=== PATIENT | female | born 1950 | race Hispanic/Latino ===

== ENCOUNTER → 2023-05-12 | Emergency (ER) | payer OTHER ==
[~2023-05-12] MED LIST: ACETAMINOPHEN 500 MG TAB ONE
--- NOTE | 2023-05-12 19:59 | RAD REPORT ---
EXAM DESCRIPTION: CT - [id number] - 05/12/2023 7:43 pm CLINICAL HISTORY: Trauma, head and neck injury. head injury COMPARISON: No comparisons TECHNIQUE: Axial 5 mm thick images of the head were obtained. Axial 2 mm thick images of the cervical spine were obtained with sagittal and coronal reconstruction images generated and reviewed. All CT scans are performed using dose optimization technique as appropriate and may include automated exposure control or mA/KV adjustment according to patient size. FINDINGS: CT HEAD WITHOUT CONTRAST: No acute hemorrhage, hydrocephalus or extra-axial collection is identified.2.5 cm area of gliosis lef t cerebellum likely related to prior infarct or trauma. Moderate generalized brain atrophy.No areas o f brain edema or midline shift. The paranasal sinuses and mastoids are clear.The calvarium is intact. CT CERVICAL SPINE WITHOUT CONTRAST: No fracture or subluxation.No prevertebral soft tissues swelling is identified. Bilateral carotid ath erosclerosis. IMPRESSION: No acute intracranial or cervical spine findings.
--- NOTE | 2023-05-12 20:39 | ER ---
Nurse's Notes [facility] Name: Genesis Busch Age: 73 yrs Sex: Female : 1950 Arrival Date: 05/12/2023 Time: 18:55 Bed 15 Private MD: Diagnosis: Unspecified injury of head, initial encounter;Laceration without foreign body of unspecified part of head Presentation: 05/12 19:12 Chief complaint: Patient states: walking to kitchen from restroom took get her glucose cm10 pills due to blood sugar being low and patient passed out. pt states that she fell straight back and hit her head on cabinet. Minimal bleeding noted. Pt A\T\Ox4, during triage. Pt complaining of pain to head. Coronavirus screen: Vaccine status: Patient reports receiving the 2nd dose of the covid vaccine. Client denies travel out of the [place] in the last 14 days. Ebola Screen: Patient denies travel to an Ebola-affected area in the 21 days before illness onset. No symptoms or risks identified at this time. Initial Sepsis Screen: Does the patient meet any 2 criteria? No. Patient's initial sepsis screen is negative. Does the patient have a suspected source of infection? No. Patient's initial sepsis screen is negative. Risk Assessment: Do you want to hurt yourself or someone else? Patient reports no desire to harm self or others. Onset of symptoms was May 12, 2023. 19:12 Method Of Arrival: Wheelchair cm10 19:12 Acuity: SUMAYA 3 cm10 Historical: - Allergies: 19:14 No Known Allergies; cm10 - PMHx: 19:14 Diabetes mellitus; cm10 - Immunization history:: Adult Immunizations up to date. - Social history:: Smoking status: Patient denies any tobacco usage or history of. - Family history:: not pertinent. - Hospitalizations: : No recent hospitalization is reported. Screenin:15 [facility] ED Fall Risk Assessment (Adult) History of falling in the last 3 months, rv including since admission Yes- physiologic fall (2 pts) Score/Fall Risk Level 3 or more points = High Risk Oriented to surroundings, Maintained a safe environment, Educated pt \T\ family on fall prevention, incl call for assistance when getting out of bed, Assessed \T\ reinforced patient's understanding of fall precautions. Abuse screen: Denies threats or abuse. Denies injuries from another. Nutritional screening: No deficits noted. Tuberculosis screening: No symptoms or risk factors identified. Assessment: 20:15 General: Appears comfortable, Behavior is calm, cooperative. rv 20:15 Pain: Complains of pain in back of the head. Neuro: Level of Consciousness is awake, rv alert, obeys commands, Oriented to person, place, time, situation, Reports a syncopal episode. Cardiovascular: Capillary refill < 3 seconds Patient's skin is warm and dry. Respiratory: Airway is patent Respiratory effort is even, unlabored. GI: No signs and/or symptoms were reported involving the gastrointestinal system. : No signs and/or symptoms were reported regarding the genitourinary system. Derm: Skin is intact. Injury Description: Laceration sustained to scalp, back of the head is 0.5 to 2.5 cm long, not bleeding. Vital Signs: 19:12 BP 137 / 63; Pulse 75; Resp 16; Temp 97.7(O); Pulse Ox 98% on R/A; Weight 74.84 kg; cm10 Height 5 ft. 1 in. ; Pain 10/10; 20:52 BP 131 / 66; Pulse 71; Resp 16; Temp 98; Pulse Ox 99% ; rv 19:12 Body Mass Index 31.18 (74.84 kg, 154.94 cm) cm10 19:12 Pain Scale: Adult cm10 Shante Coma Score: 19:40 Eye Response: spontaneous(4). Motor Response: obeys commands(6). Verbal Response: rn oriented(5). Total: 15. 20:22 Eye Response: spontaneous(4). Motor Response: obeys commands(6). Verbal Response: rn oriented(5). Total: 15. 20:52 Eye Response: spontaneous(4). Motor Response: obeys commands(6). Verbal Response: rv oriented(5). Total: 15. ED Course: 18:56 Patient arrived in ED. im 19:03 Star Verduzco MD is Attending Physician. rn 19:14 Triage completed. cm10 19:15 Arm band placed on Patient placed in an exam room, on a stretcher. cm10 19:20 Aftab Christianson RN is Primary Nurse. rv 19:45 CT Head C Spine In Process Unspecified. EDMS 20:15 Patient has correct armband on for positive identification. Client placed on continuous rv cardiac and pulse oximetry monitoring. NIBP monitoring applied. credit risk associate on. 20:15 Assist provider with laceration repair on scalp, back of the head that was 2.5 cm. or rv less using sandy. Set up tray. Performed by Star Verduzco MD Patient tolerated well. Patient did not have IV access during this emergency room visit. Administered Medications: 20:19 Drug: Acetaminophen PO 1000 mg PO once Route: PO; rv 20:50 Follow up: Response: No adverse reaction rv Medication: 20:52 VIS not applicable for this client. rv Outcome: 20:15 Discharged to home ambulatory, with friend, rv 20:15 Condition: good 20:15 Discharge instructions given to patient, Instructed on discharge instructions, follow up and referral plans. wound care, Demonstrated understanding of instructions, follow-up care, wound care, staple removal 20:38 Discharge ordered by . rn 20:53 Patient left the ED. rv Signatures: Dispatcher [employer] EDDC Star Verduzco MD MD rn Vicente, Ronaldo RN RN Cindi Cruz Clarissa RN RN cm10 Corrections: (The following items were deleted from the chart) 20:53 20:15 No provider procedures requiring assistance completed. rv rv
--- NOTE | 2023-05-12 20:39 | EDPHYS ---
Physician Documentation [facility] Name: Genesis Busch Age: 73 yrs Sex: Female : 1950 Arrival Date: 05/12/2023 Time: 18:55 Bed 15 Private MD: ED Physician Star Verduzco HPI: 05/12 19:40 This 73 yrs old Female presents to ER via Wheelchair with complaints of Head Injury rn With LOC-Adult. 19:40 The patient or guardian reports injury, a laceration. The complaints affect the right rn occipital area. Onset: The symptoms/episode began/occurred just prior to arrival. Associated signs and symptoms: Loss of consciousness: This patient experience a loss of consciousness, Pertinent negatives: patient denies any alcohol consumption, double vision, incontinence, seizure, shortness of breath, vomiting, weakness in extremities, generalized weakness. Severity of symptoms: At their worst the symptoms were moderate, in the emergency department the symptoms have improved. The patient has not experienced similar symptoms in the past. Patient reports that her blood sugar dropped, felt lightheaded and dizzy, passed out in the bathroom and struck back of head on cabinet. When she woke up she took glucose tablets and some food with improvement in glucose. Patient states this feels identical to other episodes when her blood sugar dropped low. No fever. Reports headache and mild neck pain but no pain elsewhere. Remembers all events otherwise. Denies any chest pain or palpitations. No shortness of breath. No abdominal pain. No extremity injuries.. Historical: - Allergies: 19:14 No Known Allergies; cm10 - PMHx: 19:14 Diabetes mellitus; cm10 - Immunization history:: Adult Immunizations up to date. - Social history:: Smoking status: Patient denies any tobacco usage or history of. - Family history:: not pertinent. - Hospitalizations: : No recent hospitalization is reported. ROS: 19:42 Constitutional: Negative for fever, chills, and weight loss, Eyes: Negative for injury, rn pain, redness, and discharge, Neck: Mild neck pain Cardiovascular: Negative for chest pain, palpitations, and edema, Respiratory: Negative for shortness of breath, cough, wheezing, and pleuritic chest pain, Abdomen/GI: Negative for abdominal pain, nausea, vomiting, diarrhea, and constipation, MS/Extremity: Negative for injury and deformity, Skin: Positive for laceration to scalp Neuro: Positive for headache Exam: 19:42 Constitutional: This is a well developed, well nourished patient who is awake, alert, rn and in no acute distress. Head/Face: Normocephalic, 2.5 cm superficial laceration to right posterior scalp. No active bleeding. No foreign body. Eyes: Pupils equal round and reactive to light, extra-ocular motions intact. Lids and lashes normal. Conjunctiva and sclera are non-icteric and not injected. Cornea within normal limits. Periorbital areas with no swelling, redness, or edema. Neck: No cervical point tenderness Cardiovascular: Regular rate and rhythm. No pulse deficits. Respiratory: No increased work of breathing, no retractions or nasal flaring. Abdomen/GI: Soft, non-tender Back: No spinal tenderness. No costovertebral tenderness. Full range of motion. MS/ Extremity: Pulses equal, no cyanosis. Neurovascular intact. Full, normal range of motion. Equal circumference. Neuro: Awake and alert, GCS 15, oriented to person, place, time, and situation. Cranial nerves II-XII grossly intact. Motor strength 5/5 in all extremities. Sensory grossly intact. Cerebellar exam normal. 20:35 ECG was reviewed by the Attending Physician. rn Vital Signs: 19:12 BP 137 / 63; Pulse 75; Resp 16; Temp 97.7(O); Pulse Ox 98% on R/A; Weight 74.84 kg; cm10 Height 5 ft. 1 in. ; Pain 10/10; 20:52 BP 131 / 66; Pulse 71; Resp 16; Temp 98; Pulse Ox 99% ; rv 19:12 Body Mass Index 31.18 (74.84 kg, 154.94 cm) cm10 19:12 Pain Scale: Adult cm10 Shante Coma Score: 19:40 Eye Response: spontaneous(4). Motor Response: obeys commands(6). Verbal Response: rn oriented(5). Total: 15. 20:22 Eye Response: spontaneous(4). Motor Response: obeys commands(6). Verbal Response: rn oriented(5). Total: 15. 20:52 Eye Response: spontaneous(4). Motor Response: obeys commands(6). Verbal Response: rv oriented(5). Total: 15. Laceration: 20:22 Wound Repair of 2.5cm ( 1.0in ) subcutaneous laceration to right occipital area. Distal rn neuro/vascular/tendon intact. Wound prep: Extensive cleansing by nurse, Wound explored. Skin closed with 2 35W [place] using staple gun. Dressed with Kerlix. Patient tolerated well. MDM: 19:03 Patient medically screened. rn 20:22 Differential diagnosis: Contusion of Hematoma on Intracranial bleed- Concussion rn cerebral contusion. Data reviewed: vital signs, nurses notes, radiologic studies, CT scan, and as a result, I will discharge patient. Counseling: I had a detailed discussion with the patient and/or guardian regarding the historical points, exam findings, and any diagnostic results supporting the discharge/admit diagnosis, radiology results, the need for outpatient follow up, to return to the emergency department if symptoms worsen or persist or if there are any questions or concerns that arise at home. Special discussion: Based on the patient's history, exam and DX evaluation, there is no indication for emergent intervention or inpatient [place]. It is understood by the patient/guardian that if the SXs persist or worsen they need to return immediately for re-evaluation. I discussed with the patient/guardian in detail that at this point there is no indication for admission to the hospital. It is understood, however, that if the symptoms persist or worsen the patient needs to return immediately for re-evaluation. 20:39 ED course: Advised patient to also eat snack prior to bed tonight to support her rn glucose. . 05/12 19:25 Order name: Glucose, Ancillary Testing; Complete Time: 19:26 EDDC 05/12 20:53 Order name: Glucose, Ancillary Testing EDDC 05/12 19:19 Order name: CT Head C Spine; Complete Time: 20:03 rn 05/12 19:42 Order name: EKG; Complete Time: 19:42 rn 05/12 19:19 Order name: Wound Care; Complete Time: 19:20 rn 05/12 19:42 Order name: EKG - Nurse/Tech; Complete Time: 19:49 rn 05/12 20:15 Order name: PO challenge; Complete Time: 20:19 rn EC:35 Rate is 73 beats/min. Rhythm is regular. QRS [place] is Normal. [place] interval is normal. QRS rn interval is normal. QT interval is normal. No Q waves. T waves are Normal. No ST changes noted. Clinical impression: Normal ECG. Interpreted by me. Administered Medications: 20:19 Drug: Acetaminophen PO 1000 mg PO once Route: PO; rv 20:50 Follow up: Response: No adverse reaction rv Disposition Summary: 05/12/23 20:38 Discharge Ordered Notes: Location: Home rn Problem: new rn Symptoms: have improved rn Condition: Stable rn Diagnosis - Unspecified injury of head, initial encounter rn - Laceration without foreign body of unspecified part of head rn Followup: rn - With: Private Physician - When: As needed - Reason: Recheck today's complaints, Re-evaluation by your physician Followup: rn - With: Emergency Department - When: 10 - 14 days - Reason: Staple/Suture removal Discharge Instructions: - Discharge Summary Sheet rn - Head Injury, Adult rn - Sutures, [place], or Adhesive Wound Closure rn Forms: - Medication Reconciliation Form rn - Thank You Letter rn - Antibiotic morning babysitter - Prescription Opioid Use rn - Patient Portal Instructions rn - Leadership Thank You Letter rn Signatures: Dispatcher [employer] Star Fatima MD MD rn Vicente, Ronaldo RN RN Monica Manuel RN RN cm10
[2023-05-12 23:06] VITALS: BP 131/66; TEMP 98; O2SAT 99
--- NOTE | 2023-05-14 15:02 | EKG ---
Test Date: 2023-05-12 Test Time: 19:20:44 Environmental Test Technician: SUSANNE MEASUREMENT RESULTS: Intervals: Rate: 73 RI: 174 QRSD: 80 QT: 406 QTc: 447 [place]: P: 81 RI: 174 QRS: 4 T: 64 INTERPRETIVE STATEMENTS: Normal sinus rhythm Normal ECG No previous ECG available for comparison Electronically Signed On 05-14-23 14:58:56 EMOTIONAL SUPPORT TEACHER by Rohan Salazar
== END ==
LOC: ER 18:55
PROC: 0HQ0XZZ Repair Scalp Skin, External Approach (ICD-10-PCS; principal; 2023-05-12)
DX: S01.01XA Laceration without foreign body of scalp, initial encounter (principal); E11.9 Type 2 diabetes mellitus without complications
CPT/HCPCS: 70450; 72125; 82947; 93005

== ENCOUNTER → 2023-05-24 | Emergency (ER) | payer OTHER ==
--- OUTSIDE RECORDS SUMMARY | 2023-05-24 11:07 | XMS REPORT | Continuity of Care Document ---
Author Name Unknown Address [address] [facility] [place] [address] [facility] Address [address] [facility] [address] [place] [address] Care Team Providers Care Clerical Methods Analyst Name Role Phone Master Rice MD Primary Care Physician ADELA GOLDEN Attending Clinician Unavail able MASTER RICE Attending Clinician Unavailable JUSTEN CELESTE Attending Clinician Unavailable MELISSA ADAMS Attending Clinician Unavailab WANDER Gamez Attending Clinician Sarah ALIYAH Katz Attending Clinician Unavailable 1, [facility] TOMOGRAP[facility] Attending Clinic cosme Unavailable MD JOHANNY Attending Clinician Unavailab le LAB39 Attending Clinician Unavailable PINA GONZALES Attending Clinician Unavailable VIKTOR OROZCO Attending Clinician Unavailable WINSOME GARCIA Attending Clinician Unavaila ble LAB47 Attending Clinician Unavailable LAB90 Attending Clinician Unavailable TY GUERRERO Attending Clinician Unavailable [facility] Attending Clinici an Unavailable Adela Golden MD Attending Clinician Master Rice MD Attending Clinician [phone] JAZMYN GARCIA Attending Clinician Unavailable AUGUSTINE SANTAMARIA Attending Clinician Unavailable TRISTEN STOVALL Attending Clinician Unavailable Augustine Jacob Attending Clinician [phone] SANTY JEAN Attending Clinician Unavailable Santy Jean PA-C Attending Clinician [phone] Jazmyn Garcia MD Attending Clinician [phone] FL1, [id number] Attending Clinician Unavailable SWAB, MC COVID SELF Attending Clinician Unavaila ble TOMOGRAPHY, TA [facility] Attending Jose Alfredo weller Unavailable MAC, EKG- Attending Clinician Unavailable JORDAN BOYLE Attending Clinician Unavailabl e COVID-PFIZER BOOSTER, [facility] Attending Clin ician Unavailable COVID-PFIZER BOOSTER, MILLY Attending Clinician Unavailable Payers Payer Name Policy Type Policy Number Effective Date Expirati on Date Source [facility] 2019 [id number] 2017 00:00:00 Problems Condition Name Condition Details Condition Category Status Onset Date Resolution Date Last Treatment Date Treating Clinician Comments Source 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 On statin and BBLast Assessmen t & Plan: Formattin g of this note might be different from the original. 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 Sees opthamolo gyLast Assessmen t & Plan: Formattin g of this note might be different from the original. Unchanged Radha Seybold - Externa l Type 2 diabetes mellitus with peripheral neuropathy (multi HCC) Type 2 diabetes mellitus with peripheral neuropathy (multi HCC) Disease Active 8-26 00:00: 00 Overview: Formattin g of this note might be different from the original. Fall preventio n and control sugarLast Assessmen t & Plan: Formattin g of this note might be different from the original. Unchanged Radha Sepremold - Externa l Major depressive disorder, single episode, moderate Major depressive disorder, single episode, moderate Disease Active 12-02 00:00: 00 Overview: Formattin g of this note might be different from the original. On ssriRecen t worsening with just dx with throat cancerHus band recently and crying spells regularly Last Assessmen t & Plan: Formattin g of this note might be different from the original. Not Controlle d Radha Sepremold - Externa l At risk for falls At risk for falls Disease Active 12-08 00:00: 00 Radha Beckold - Externa l Repeated falls Repeated falls Disease Active 12-08 00:00: 00 Radha Sepremold - Externa l DM type 2 with diabetic mixed hyperlipid emia (multi HCC) DM type 2 with diabetic mixed hyperlipid emia (multi HCC) Disease Active 08-18 00:00: 00 Overview: Formattin g of this note might be different from the original. Insulin, metformin , and statinLas t Assessmen t & Plan: Formattin g of this note might be different from the original. Unchanged Radha Seybold - Externa l Insulin long-term use (multi HCC) Insulin long-term use (multi HCC) Disease Active 08-18 00:00: 00 Overview: Formattin g of this note might be different from the original. controlle dLast Assessmen t & Plan: Formattin g of this note might be different from the original. Controlle d Radha Beckold - Externa l Hypertensi ve nephropath y Hypertensi ve nephropath y Disease Active 2018-04 0 00:00: 00 Overview: Formattin g of this note might be different from the original. On ARBLast Assessmen t & Plan: Formattin g of this note might be different from the original. 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, right eye Disease Active 18 00:00: 00 Radha Anpremold - Externa l Osteoarthr itis of right hip Osteoarthr itis of right hip Disease Active 2014-04 00:00: 00 Radha Anpremold - Externa l Dot and blot hemorrhage Dot and blot hemorrhage Disease Active 09-07 00:00: 00 Radha Anybold - Externa l Restrictiv e lung disease Restrictiv e lung disease Disease Active 2010-04 00:00: 00 Radha ybold - Externa l VENKATESH (obstructi ve sleep apnea) VENKATESH (obstructi ve sleep apnea) Disease Active 07-27 00:00: 00 Radha Beckold - Externa l Type II diabetes mellitus with nephropath y (multi HCC) Type II diabetes mellitus with nephropath y (multi HCC) Disease Active 2009-04 00:00: 00 Overview: Formattin g of this note might be different from the original. On ARBLast Assessmen t & Plan: Formattin g of this note might be different from the original. Controlle d Radha Simental - Externa l Essential hypertensi on, benign Essential hypertensi on, benign Disease Active Overview: Formattin g of this note might be different from the original. Low salt diet; on ARBUp todayLast Assessmen t & Plan: Formattin g of this note might be different from the original. Not controlle d; her BP has been dropping and causeing dizziness She held her BP med this am Radha Beckold - Externa l Mixed hyperlipid emia Mixed hyperlipid emia Disease Active Overview: Formattin g of this note might be different from the original. The 10-year ASCVD risk score (Raffi BROWER Jr., et al., 2013) is: 19% Values used to calculate the score: Age: 69 years Sex: Female Is Non-Hispa efrain : No Diabetic: Yes Tobacco smoker: No Systolic Blood Pressure: 130 mmHg Is BP treated: Yes HDL Cholester ol: 43 mg/dL Total Cholester ol: 202 mg/dLOn statinLas t Assessmen t & Plan: Formattin g of this note might be different from the original. Unchanged Radha Kamille Sandersona nancy Coronary atheroscle rosis due to lipid rich plaque Coronary atheroscle rosis due to lipid rich plaque Disease Active Overview: Formattin g of this note might be different from the original. On BB and plavixLas t Assessmen t & Plan: Formattin g of this note might be different from the original. Controlle d She has had one episode chest pain several months ago Radha Scruggs Externa l Myositis Myositis Disease Active Tc Scruggs Externa l Elevated CPK Elevated CPK Disease Active Radha Simental - Externa l Allergies, Adverse Reactions, Alerts Allergy Name Allergy Type Status Severity Reaction(s) Onset Date Inactive Date Treating Clinician Comments Source Prince Inhibito rs Drug Intolera nce Active Cough 04-19 00:00: 00 Radha Simental Prince Inhibito rs Drug Intolera nce Active Cough 04-19 00:00: 00 Radha Sandersona l Atorvast atin Propensi ty to adverse reaction s Active 2007-04 00:00: 00 Other reaction( s): Other Radha Kamille Sandersona l Fenofibr ate Propensi ty to adverse reaction s Active 2007-04 00:00: 00 Other reaction( s): Other Radha Kamille Sandersona nancy Pravasta tin Propensi ty to adverse reaction s Active 2007-04 00:00: 00 Other reaction( s): Other Radha Kamille - Externa l Atorvast atin Calcium Drug Allergy Active Myalgia 2007-04 00:00: 00 Radha Sandersona l Pravasta tin Sodium Propensi ty to adverse reaction s to drug Active Myalgia 2007-04 00:00: 00 Radha Sandersona nancy Fenofibr ate Drug Allergy Active Myalgia 2007-04 00:00: 00 Radha Simental Fenofibr ate Drug Allergy Active Myalgia 2007-04 00:00: 00 Radha Sandersonadam cruz Social History Social Habit Start Date Stop Date Quantity Comments Source Gender identity 2022-10-09 18:44:18 Identifies as female gender (finding) Radha Sepremantonina - External Sexual orientation 2022-10-09 18:44:18 Heterosexual (finding) Radhacait Simental - External Exposure to SARS-CoV-2 (event) Not sure Radha small History SDOH Alcohol Frequency Radha hanley - External History SDOH Alcohol Std Drinks Radha amaroold - External History SDOH Alcohol Binge Radha Segeovanny - External Alcohol intake 2023-03-13 00:00:00 2023-03-13 00:00:00 Current non-drinker of alcohol (finding) Radha Segeovanny - External History of Social function 2022-12-27 00:00:00 2022-12-27 00:00:00 Radha premantonina - External Alcohol Comment 2014-05-22 00:00:00 2014-05-22 00:00:00 not even 1 per week Radha Simental - External Tobacco use and exposure 2014-01-09 00:00:00 2014-01-09 00:00:00 Smokeless tobacco non-user Radha Segeovanny - External Sex Ass[birth year] At 1950 00:00:00 1950 00:[birth year] F Radha Anpremantonina - External Smoking Status Start Date Stop Date Source Never smoked tobacco Radha Anpremantonina - External Medications Ordered Medication Name Filled Medication Name Start Date Stop Date Current Medication? Ordering Clinician Indication Dosage Frequency Signature (SIG) Comments Components Source ASPIR-81 81 MG OR TBEC 2022-04 09:50: 30 Yes 1 TABLET DAILY Radha cruz Coenzyme Q10 (CO Q 10 OR) 2022-04 09:50: 30 Yes Take by mouth 300 mg daily Radha cruz Alpha-Lipoi c Acid 600 MG oral Cap 2022-04 09:50: 30 Yes 600{cap praneeth} Take 600 capsules by mouth daily Radha cruz Cholecalcif abel (Vitamin D3) 50 MCG (2000 UT) oral Tab 2022-04 09:50: 30 Yes Take by mouth Radha cruz Ascorbic Acid (Vitamin C) 1000 MG oral Tablet 2022-04 09:50: 30 Yes 1000mg Take 1 tablet (1,000 mg total) by mouth daily With reina hip. Radha cruz Multiple Vitamins-Mi nerals (MULTIVITAM IN ADULTS 50+ OR) 2022-04 09:50: 30 Yes Take by mouth Radha cruz ASPIR-81 81 MG OR TBEC 2022-04 09:50: 30 Yes 1 TABLET DAILY Radha cruz Coenzyme Q10 (CO Q 10 OR) 2022-04 09:50: 30 Yes Take by mouth 300 mg daily Radha cruz Alpha-Lipoi c Acid 600 MG oral Cap 2022-04 09:50: 30 Yes 600{cap praneeth} Take 600 capsules by mouth daily Radha cruz Cholecalcif abel (Vitamin D3) 50 MCG (2000 UT) oral Tab 2022-04 09:50: 30 Yes Take by mouth Radha cruz Ascorbic Acid (Vitamin C) 1000 MG oral Tablet 2022-04 09:50: 30 Yes 1000mg Take 1 tablet (1,000 mg total) by mouth daily With reina hip. Radha cruz Multiple Vitamins-Mi nerals (MULTIVITAM IN ADULTS 50+ OR) 2022-04 09:50: 30 Yes Take by mouth Radha cruz Betamethaso ne Dipropionat e 0.05 % apply externally Ointment 2022-04 00:00: 00 Yes [id number] APPLY TWICE DAILY SPARINGLY TO ITCHY SPOTS OF BODY MON-FRI NEEDED . NOT FOR USE ON FACE, ARMPITS, GROIN OR AREAS UNDER FOLDS.. Radha cruz Tacrolimus (Protopic) 0.1 % apply externally Ointment 2022-04 00:00: 00 Yes [id number] Apply sparingly BID to rash face, armpits, groin/fold s prn. Radha cruz Betamethaso ne Dipropionat e 0.05 % apply externally Ointment 2022-04 00:00: 00 Yes [id number] APPLY TWICE DAILY SPARINGLY TO ITCHY SPOTS OF BODY MON-FRI NEEDED . NOT FOR USE ON FACE, ARMPITS, GROIN OR AREAS UNDER FOLDS.. Radha cruz Tacrolimus (Protopic) 0.1 % apply externally Ointment 2022-04 00:00: 00 Yes [id number] Apply sparingly BID to rash face, armpits, groin/fold s prn. Radha cruz ASPIR-81 81 MG OR TBEC 2022-04 09:36: 14 Yes 1 TABLET DAILY Radha Sandersona l Coenzyme Q10 (CO Q 10 OR) 2022-04 09:36: 14 Yes Take by mouth 300 mg daily Radha Sandersona nancy Cholecalcif abel (Vitamin D3) 50 MCG (2000 UT) oral Tab 2022-04 09:36: 14 Yes Take by mouth Radha Sandersona nancy Ascorbic Acid (Vitamin C) 1000 MG oral Tablet 2022-04 09:36: 14 Yes 1000mg Take 1 tablet (1,000 mg total) by mouth daily With reina hip. Radha Sandersona nancy Multiple Vitamins-Mi nerals (MULTIVITAM IN ADULTS 50+ OR) 2022-04 09:36: 14 Yes Take by mouth Radha Sandersona nancy ASPIR-81 81 MG OR TBEC 2022-04 09:36: 14 Yes 1 TABLET DAILY Radha Sandersona l Coenzyme Q10 (CO Q 10 OR) 2022-04 09:36: 14 Yes Take by mouth 300 mg daily Radha Sandersona nancy Cholecalcif abel (Vitamin D3) 50 MCG (2000 UT) oral Tab 2022-04 09:36: 14 Yes Take by mouth Radha Simental - Externa l Ascorbic Acid (Vitamin C) 1000 MG oral Tablet 2022-04 09:36: 14 Yes 1000mg Take 1 tablet (1,000 mg total) by mouth daily With reina hip. Radha Scruggs Externa nancy Multiple Vitamins-Mi nerals (MULTIVITAM IN ADULTS 50+ OR) 2022-04 09:36: 14 Yes Take by mouth Radha cruz Alpha-Lipoi c Acid 600 MG oral Cap 2022-04 09:36: 13 Yes 600{cap praneeth} Take 600 capsules by mouth daily Radha cruz Alpha-Lipoi c Acid 600 MG oral Cap 2022-04 09:36: 13 Yes 600{cap praneeth} Take 600 capsules by mouth daily Radha cruz ASPIR-81 81 MG OR TBEC 2022-04 09:31: 06 Yes 1 TABLET DAILY Radha cruz Coenzyme Q10 (CO Q 10 OR) 2022-04 09:31: 06 Yes Take by mouth 300 mg daily Radha cruz Alpha-Lipoi c Acid 600 MG oral Cap 2022-04 09:31: 06 Yes 600{cap praneeth} Take 600 capsules by mouth daily Radah cruz Cholecalcif abel (Vitamin D3) 50 MCG (2000 UT) oral Tab 2022-04 09:31: 06 Yes Take by mouth Radha cruz Ascorbic Acid (Vitamin C) 1000 MG oral Tablet 2022-04 09:31: 06 Yes 1000mg Take 1 tablet (1,000 mg total) by mouth daily With reina hip. Radha cruz Multiple Vitamins-Mi nerals (MULTIVITAM IN ADULTS 50+ OR) 2022-04 09:31: 06 Yes Take by mouth Radha cruz Citalopram Hydrobromid e 40 MG oral Tablet 2022-04 00:00: 00 Yes [id number] 40mg Take 1 tablet (40 mg total) by mouth daily. Radha cruz Metformin HCl 1000 MG oral Tablet 2022-04 00:00: 00 Yes [id number] 1000mg Take 1 tablet (1,000 mg total) by mouth in the morning and 1 tablet (1,000 mg total) in the evening. Take with meals. Radha cruz Citalopram Hydrobromid e 40 MG oral Tablet 2022-04 00:00: 00 Yes [id number] 40mg Take 1 tablet (40 mg total) by mouth daily. Radha cruz Metformin HCl 1000 MG oral Tablet 2022-04 0-16 00:00: 00 Yes [id number] 1000mg Take 1 tablet (1,000 mg total) by mouth in the morning and 1 tablet (1,000 mg total) in the evening. Take with meals. Radha cruz Citalopram Hydrobromid e 40 MG oral Tablet 2022-04 016 00:00: 00 Yes [id number] 40mg Take 1 tablet (40 mg total) by mouth daily. aRdha Anpremantonina cruz Metformin HCl 1000 MG oral Tablet 2022-04 0-16 00:00: 00 Yes [id number] 1000mg Take 1 tablet (1,000 mg total) by mouth in the morning and 1 tablet (1,000 mg total) in the evening. Take with meals. Radha cruz Citalopram Hydrobromid e 40 MG oral Tablet 2022-04 0 00:00: 00 Yes [id number] 40mg Take 1 tablet (40 mg total) by mouth daily. Radha cruz Metformin HCl 1000 MG oral Tablet 2022-04 016 00:00: 00 Yes [id number] 1000mg Take 1 tablet (1,000 mg total) by mouth in the morning and 1 tablet (1,000 mg total) in the evening. Take with meals. Radha cruz Citalopram Hydrobromid e 40 MG oral Tablet 2022-04 016 00:00: 00 Yes [id number] 40mg Take 1 tablet (40 mg total) by mouth daily. Radha Anpremantonina King nancy Metformin HCl 1000 MG oral Tablet 2022-04 016 00:00: 00 Yes [id number] 1000mg Take 1 tablet (1,000 mg total) by mouth in the morning and 1 tablet (1,000 mg total) in the evening. Take with meals. Radha cruz Insulin Pen Needle (Unifine Pentips) 29G X 12MM does not apply Misc 2022-04 0-05 00:00: 00 Yes As directed. Radha Sandersona nancy Insulin Pen Needle (Unifine Pentips) 29G X 12MM does not apply Misc 2022- 0-05 00:00: 00 Yes As directed. Radha cruz Insulin Pen Needle (Unifine Pentips) 29G X 12MM does not apply Misc 2022-04 0-05 00:00: 00 Yes As directed. Radha Sandersona nancy Insulin Pen Needle (Unifine Pentips) 29G X 12MM does not apply Misc 2022- 0-05 00:00: 00 Yes As directed. Radha Kamille Sandersona l Insulin Pen Needle (Unifine Pentips) 29G X 12MM does not apply Misc 2022-04 0-05 00:00: 00 Yes As directed. Radha cruz ASPIR-81 81 MG OR TBEC 12-27 10:09: 43 Yes 1 TABLET DAILY Radha cruz Coenzyme Q10 (CO Q 10 OR) 12-27 10:09: 43 Yes Take by mouth 300 mg daily Radha cruz Alpha-Lipoi c Acid 600 MG oral Cap 12-27 10:09: 43 Yes 600{cap praneeth} Take 600 capsules by mouth daily Radha cruz Cholecalcif abel (Vitamin D3) 50 MCG (2000 UT) oral Tab 12-27 10:09: 43 Yes Take by mouth Radha cruz Ascorbic Acid (Vitamin C) 1000 MG oral Tablet 12-27 10:09: 43 Yes 1000mg Take 1 tablet (1,000 mg total) by mouth daily With reina hip. Radha cruz Multiple Vitamins-Mi nerals (MULTIVITAM IN ADULTS 50+ OR) 12-27 10:09: 43 Yes Take by mouth Radha cruz ASPIR-81 81 MG OR TBEC 12-27 10:09: 43 Yes 1 TABLET DAILY Radha cruz Coenzyme Q10 (CO Q 10 OR) 12-27 10:09: 43 Yes Take by mouth 300 mg daily Radha cruz Alpha-Lipoi c Acid 600 MG oral Cap 12-27 10:09: 43 Yes 600{cap praneeth} Take 600 capsules by mouth daily Radha cruz Cholecalcif abel (Vitamin D3) 50 MCG (2000 UT) oral Tab 12-27 10:09: 43 Yes Take by mouth Radha cruz Ascorbic Acid (Vitamin C) 1000 MG oral Tablet 12-27 10:09: 43 Yes 1000mg Take 1 tablet (1,000 mg total) by mouth daily With reina hip. Radha cruz Multiple Vitamins-Mi nerals (MULTIVITAM IN ADULTS 50+ OR) 12-27 10:09: 43 Yes Take by mouth Radha cruz Valsartan 160 MG oral Tablet 12-27 00:00: 00 Yes [id number] Take 1 daily. Radha cruz Valsartan 160 MG oral Tablet 12-27 00:00: 00 Yes [id number] Take 1 daily. Radha cruz Valsartan 160 MG oral Tablet 12-27 00:00: 00 Yes [id number] Take 1 daily. Radha cruz Valsartan 160 MG oral Tablet 12-27 00:00: 00 Yes [id number] Take 1 daily. Radha cruz Valsartan 160 MG oral Tablet 12-27 00:00: 00 Yes [id number] Take 1 daily. Radha cruz Valsartan 160 MG oral Tablet 12-27 00:00: 00 Yes [id number] Take 1 daily. Radha cruz Valsartan 160 MG oral Tablet 12-27 00:00: 00 Yes [id number] Take 1 daily. Radha cruz ASPIR-81 81 MG OR TBEC 11-09 15:04: 28 Yes 1 TABLET DAILY Radha cruz Coenzyme Q10 (CO Q 10 OR) 11-09 15:04: 28 Yes Take by mouth 300 mg daily Radha cruz Alpha-Lipoi c Acid 600 MG oral Cap 11-09 15:04: 28 Yes 600{cap praneeth} Take 600 capsules by mouth daily Radha cruz Cholecalcif abel (Vitamin D3) 50 MCG (1999) oral Tab 11-09 15:04: 28 Yes Take by mouth Radha cruz Ascorbic Acid (Vitamin C) 1000 MG oral Tablet 11-09 15:04: 28 Yes 1000mg Take 1 tablet (1,000 mg total) by mouth daily With reina hip Radha curz Multiple Vitamins-Mi nerals (MULTIVITAM IN ADULTS 50+ OR) 11-09 15:04: 28 Yes Take by mouth Radha cruz ASPIR-81 81 MG OR TBEC 10-26 14:19: 38 Yes 1 TABLET DAILY Radha cruz Coenzyme Q10 (CO Q 10 OR) 10-26 14:19: 38 Yes Take by mouth 300 mg daily Radha cruz Alpha-Lipoi c Acid 600 MG oral Cap 10-26 14:19: 38 Yes 600{cap praneeth} Take 600 capsules by mouth daily Radha cruz Cholecalcif abel (Vitamin D3) 50 MCG (1999) oral Tab 10-26 14:19: 38 Yes Take by mouth Radha cruz Ascorbic Acid (Vitamin C) 1000 MG oral Tablet 10-26 14:19: 38 Yes 1000mg Take 1 tablet (1,000 mg total) by mouth daily With reina hip Radha cruz Multiple Vitamins-Mi nerals (MULTIVITAM IN ADULTS 50+ OR) 10-26 14:19: 38 Yes Take by mouth Radha cruz Glucose Blood in vitro Strip 10-11 00:00: 00 Yes Test 3 times daily as directed Radha cruz Glucose Blood in vitro Strip 10-11 00:00: 00 Yes Test 3 times daily as directed Radha cruz Glucose Blood in vitro Strip 10-11 00:00: 00 Yes Test 3 times daily as directed Radha Seybold - Externa l Glucose Blood in vitro Strip 3-0 - 00:00: 00 Yes Test 3 times daily as directed Radha Seybold - Externa l Glucose Blood in vitro Strip 2022-0 - 00:00: 00 Yes Test 3 times daily as directed Radha Seybold - Externa l Glucose Blood in vitro Strip 2022-0 - 00:00: 00 Yes Test 3 times daily as directed Radha Seybold - Externa l Glucose Blood in vitro Strip 2022-0 -05 00:00: 00 Yes Test 3 times daily as directed Radha Seybold - Externa l Glucose Blood in vitro Strip 2022-0 10-11 00:00: 00 Yes Test 3 times daily as directed Radha Seybold - Externa l Glucose Blood in vitro Strip 2022-0 10-11 00:00: 00 Yes Test 3 times daily as directed Radha Seybold - Externa l Allopurinol 100 MG oral Tablet 0 09-26 00:00: 00 Yes [id number] 200mg Take 2 tablets (200 mg total) by mouth daily Radha Sepremold - Externa l Allopurinol 100 MG oral Tablet 0 09-26 00:00: 00 Yes [id number] 200mg Take 2 tablets (200 mg total) by mouth daily Radha Simental - Externa l Allopurinol 100 MG oral Tablet 2022-0 09-26 00:00: 00 Yes [id number] 200mg Take 2 tablets (200 mg total) by mouth daily Radha Sepremold - Externa l Allopurinol 100 MG oral Tablet 0 09-26 00:00: 00 Yes [id number] 200mg Take 2 tablets (200 mg total) by mouth daily Radha Seybold - Externa l Allopurinol 100 MG oral Tablet 2022-0 20 00:00: 00 Yes [id number] 200mg Take 2 tablets (200 mg total) by mouth daily Radha Seybold - Externa l Allopurinol 100 MG oral Tablet 2022-0 09-26 00:00: 00 Yes [id number] 200mg Take 2 tablets (200 mg total) by mouth daily Radha Simental - Externa l Allopurinol 100 MG oral Tablet 09-26 00:00: 00 Yes [id number] 200mg Take 2 tablets (200 mg total) by mouth daily Radha Sandersona nancy Allopurinol 100 MG oral Tablet 09-26 00:00: 00 Yes [id number] 200mg Take 2 tablets (200 mg total) by mouth daily Radha Scruggs Externa nancy Allopurinol 100 MG oral Tablet 09-26 00:00: 00 Yes [id number] 200mg Take 2 tablets (200 mg total) by mouth daily Radha Sandersona nancy busPIRone HCl 15 MG oral Tablet 09-14 00:00: 00 Yes [id number] 15mg Take 1 tablet (15 mg total) by mouth 2 times daily Radha Scruggs Externa nancy busPIRone HCl 15 MG oral Tablet 09-14 00:00: 00 Yes [id number] 15mg Take 1 tablet (15 mg total) by mouth 2 times daily Radha Scruggs Externa nancy busPIRone HCl 15 MG oral Tablet 09-14 00:00: 00 Yes [id number] 15mg Take 1 tablet (15 mg total) by mouth 2 times daily Radha Scruggs Externa nancy busPIRone HCl 15 MG oral Tablet 09-14 00:00: 00 Yes [id number] 15mg Take 1 tablet (15 mg total) by mouth 2 times daily Radha Scruggs Externa nancy busPIRone HCl 15 MG oral Tablet 09-14 00:00: 00 Yes [id number] 15mg Take 1 tablet (15 mg total) by mouth 2 times daily Radha Scruggs Externa nancy busPIRone HCl 15 MG oral Tablet 09-14 00:00: 00 Yes [id number] 15mg Take 1 tablet (15 mg total) by mouth 2 times daily Radha Scruggs Externa nancy busPIRone HCl 15 MG oral Tablet 09-14 00:00: 00 Yes [id number] 15mg Take 1 tablet (15 mg total) by mouth 2 times daily Radha Scruggs Externa nancy busPIRone HCl 15 MG oral Tablet 09-14 00:00: 00 Yes [id number] 15mg Take 1 tablet (15 mg total) by mouth 2 times daily Radha cruz busPIRone HCl 15 MG oral Tablet 09-14 00:00: 00 Yes [id number] 15mg Take 1 tablet (15 mg total) by mouth 2 times daily Radha cruz busPIRone HCl 15 MG oral Tablet 09-14 00:00: 00 Yes [id number] 15mg Take 1 tablet (15 mg total) by mouth 2 times daily Radha cruz Ascorbic Acid (Vitamin C) 1000 MG oral Tablet 09-07 09:43: 31 Yes 1000mg Take 1 tablet (1,000 mg total) by mouth daily With reina hip Radha cruz Multiple Vitamins-Mi nerals (MULTIVITAM IN ADULTS 50+ OR) 09-07 09:27: 51 Yes Take by mouth Radha cruz Coenzyme Q10 (CO Q 10 OR) 09-07 09:24: 24 Yes Take by mouth 300 mg daily Radha cruz ASPIR-81 81 MG OR TBEC 09-07 09:18: 01 Yes 1 TABLET DAILY Radha cruz Cholecalcif abel (Vitamin D3) 50 MCG (1999 UT) oral Tab 09-07 09:18: 01 Yes Take by mouth Radha cruz Alpha-Lipoi c Acid 600 MG oral Cap 09-07 09:09: 43 Yes 600{cap praneeth} Take 600 capsules by mouth daily Radha cruz ASPIR-81 81 MG OR TBEC 08-15 09:44: 14 Yes 1 TABLET DAILY Radha cruz Coenzyme Q10 (CO Q 10 OR) 08-15 09:44: 14 Yes None Entered Radha cruz Alpha-Lipoi c Acid 600 MG oral Cap 08-15 09:44: 14 Yes 600{cap praneeth} Take 600 capsules by mouth daily Radha rcuz Cholecalcif abel (Vitamin D3) 50 MCG (1999 UT) oral Tab 08-15 09:44: 14 Yes Take by mouth Radha Seybold - Externa l Colchicine 0.6 MG oral Tablet 08-15 00:00: 00 Yes [id number] .6mg Take 1 tablet (0.6 mg total) by mouth daily PRN GOUT SYMPTOMS Radha Seybold - Externa l Colchicine 0.6 MG oral Tablet 08-15 00:00: 00 Yes [id number] .6mg Take 1 tablet (0.6 mg total) by mouth daily PRN GOUT SYMPTOMS Radha Seybold - Externa l Colchicine 0.6 MG oral Tablet 08-15 00:00: 00 Yes [id number] .6mg Take 1 tablet (0.6 mg total) by mouth daily PRN GOUT SYMPTOMS Radha Seybold - Externa l Colchicine 0.6 MG oral Tablet 08-15 00:00: 00 Yes [id number] .6mg Take 1 tablet (0.6 mg total) by mouth daily PRN GOUT SYMPTOMS Radha Seybold - Externa l Colchicine 0.6 MG oral Tablet 08-15 00:00: 00 Yes [id number] .6mg Take 1 tablet (0.6 mg total) by mouth daily PRN GOUT SYMPTOMS Radha Seybold - Externa l Colchicine 0.6 MG oral Tablet 08-15 00:00: 00 Yes [id number] .6mg Take 1 tablet (0.6 mg total) by mouth daily PRN GOUT SYMPTOMS Radha Seybold - Externa l Colchicine 0.6 MG oral Tablet 08-15 00:00: 00 Yes [id number] .6mg Take 1 tablet (0.6 mg total) by mouth daily PRN GOUT SYMPTOMS Radha Seybold - Externa l Colchicine 0.6 MG oral Tablet 08-15 00:00: 00 Yes [id number] .6mg Take 1 tablet (0.6 mg total) by mouth daily PRN GOUT SYMPTOMS Radha Seybold - Externa l Colchicine 0.6 MG oral Tablet 08-15 00:00: 00 Yes [id number] .6mg Take 1 tablet (0.6 mg total) by mouth daily PRN GOUT SYMPTOMS Radha Seybold - Externa l Colchicine 0.6 MG oral Tablet 08-15 00:00: 00 Yes [id number] .6mg Take 1 tablet (0.6 mg total) by mouth daily PRN GOUT SYMPTOMS Radha Simental - Externa l Colchicine 0.6 MG oral Tablet 08-15 00:00: 00 Yes [id number] .6mg Take 1 tablet (0.6 mg total) by mouth daily PRN GOUT SYMPTOMS Radha Anpremold - Externa l Potassium Chloride Skylar ER 20 MEQ oral Tab CR tablet 2021-04 00:00: 00 Yes [id number] 20meq Take 1 tablet (20 mEq total) by mouth daily Radha Simental - Externa l Insulin Detemir (Levemir FlexTouch) 100 UNIT/ML subcutaneou s Solution Pen-injecto r 2021-04 00:00: 00 Yes Inject 40-50 units into the skin 2 times daily. This replaces Lanrubius Naomi Simental - Externa l Potassium Chloride Skylar ER 20 MEQ oral Tab CR tablet 2021-04 00:00: 00 Yes [id number] 20meq Take 1 tablet (20 mEq total) by mouth daily Radha Simental - Externa l Insulin Detemir (Levemir FlexTouch) 100 UNIT/ML subcutaneou s Solution Pen-injecto r 2021-04 00:00: 00 Yes Inject 40-50 units into the skin 2 times daily. This replaces Lanruibus Naomi Simental - Externa l Potassium Chloride Skylar ER 20 MEQ oral Tab CR tablet 2021-04 00:00: 00 Yes [id number] 20meq Take 1 tablet (20 mEq total) by mouth daily Radha Simental - Externa l Insulin Detemir (Levemir FlexTouch) 100 UNIT/ML subcutaneou s Solution Pen-injecto r 2021-04 00:00: 00 Yes Inject 40-50 units into the skin 2 times daily. This replaces Lantus Deenaostar Radha Seybold - Externa l Potassium Chloride Skylar ER 20 MEQ oral Tab CR tablet 2021-04 00:00: 00 Yes [id number] 20meq Take 1 tablet (20 mEq total) by mouth daily Radha Anpremold - Externa l Insulin Detemir (Levemir FlexTouch) 100 UNIT/ML subcutaneou s Solution Pen-injecto r 2021-04 00:00: 00 Yes Inject 40-50 units into the skin 2 times daily. This replaces Lantus Deenaostar Radha Anybold - Externa l Potassium Chloride Skylar ER 20 MEQ oral Tab CR tablet 2021-04 00:00: 00 Yes [id number] 20meq Take 1 tablet (20 mEq total) by mouth daily Radha Anybold - Externa l Insulin Detemir (Levemir FlexTouch) 100 UNIT/ML subcutaneou s Solution Pen-injecto r 2021-04 00:00: 00 Yes Inject 40-50 units into the skin 2 times daily. This replaces Lantus Deenaostar Radha Seybold - Externa l Potassium Chloride Skylar ER 20 MEQ oral Tab CR tablet 2021-04 00:00: 00 Yes [id number] 20meq Take 1 tablet (20 mEq total) by mouth daily Radha Anpremold - Externa l Insulin Detemir (Levemir FlexTouch) 100 UNIT/ML subcutaneou s Solution Pen-injecto r 2021-04 00:00: 00 Yes Inject 40-50 units into the skin 2 times daily. This replaces Lantus Deenaostar Radha Anybold - Externa l Potassium Chloride Skylar ER 20 MEQ oral Tab CR tablet 2021-04 00:00: 00 Yes [id number] 20meq Take 1 tablet (20 mEq total) by mouth daily Radha Anpremold - Externa l Insulin Detemir (Levemir FlexTouch) 100 UNIT/ML subcutaneou s Solution Pen-injecto r 2021-04 00:00: 00 Yes Inject 40-50 units into the skin 2 times daily. This replaces Lantus Solostar Radha Seybold - Externa l Potassium Chloride Skylar ER 20 MEQ oral Tab CR tablet 2021-04 00:00: 00 Yes [id number] 20meq Take 1 tablet (20 mEq total) by mouth daily Radha Seybold - Externa l Insulin Detemir (Levemir FlexTouch) 100 UNIT/ML subcutaneou s Solution Pen-injecto r 2021-04 00:00: 00 Yes Inject 40-50 units into the skin 2 times daily. This replaces Lanrubi Naomi Simental - Externa l Potassium Chloride Skylar ER 20 MEQ oral Tab CR tablet 2021-04 00:00: 00 Yes [id number] 20meq Take 1 tablet (20 mEq total) by mouth daily Radha Scruggs Externa l Insulin Detemir (Levemir FlexTouch) 100 UNIT/ML subcutaneou s Solution Pen-injecto r 2021-04 00:00: 00 Yes Inject 40-50 units into the skin 2 times daily. This replaces Lantus Naomi Simental - Externa l Potassium Chloride Skylar ER 20 MEQ oral Tab CR tablet 2021-04 00:00: 00 Yes [id number] 20meq Take 1 tablet (20 mEq total) by mouth daily Radha Scruggs Externa l Insulin Detemir (Levemir FlexTouch) 100 UNIT/ML subcutaneou s Solution Pen-injecto r 2021-04 00:00: 00 Yes Inject 40-50 units into the skin 2 times daily. This replaces Lantus Naomi Simental - Externa l Potassium Chloride Skylar ER 20 MEQ oral Tab CR tablet 2021-04 00:00: 00 Yes [id number] 20meq Take 1 tablet (20 mEq total) by mouth daily Radha Scruggs Externa l Insulin Detemir (Levemir FlexTouch) 100 UNIT/ML subcutaneou s Solution Pen-injecto r 2021-04 00:00: 00 Yes Inject 40-50 units into the skin 2 times daily. This replaces Lantus Axelar Radha Beckold - Externa l Potassium Chloride Skylar ER 20 MEQ oral Tab CR tablet 2021-04 00:00: 00 Yes [id number] 20meq Take 1 tablet (20 mEq total) by mouth daily Radha Simental - Externa l Insulin Detemir (Levemir FlexTouch) 100 UNIT/ML subcutaneou s Solution Pen-injecto r 2021-04 2-23 00:00: 00 Yes Inject 40-50 units into the skin 2 times daily. This replaces Lantus Deenacoralar Radha Anpremantonina Scruggs Externa l Insulin Aspart (NovoLOG FlexPen) 100 UNIT/ML subcutaneou s Solution Pen-injecto r 2021-04 2-16 00:00: 00 Yes [id number] 20U Inject 20 units into the skin 3 times daily (before meals) Radha Anpremantonina Scruggs Externa l Insulin Aspart (NovoLOG FlexPen) 100 UNIT/ML subcutaneou s Solution Pen-injecto r 2021-04 2-16 00:00: 00 Yes [id number] 20U Inject 20 units into the skin 3 times daily (before meals) Radha nApremantonina Scruggs Externa l Insulin Aspart (NovoLOG FlexPen) 100 UNIT/ML subcutaneou s Solution Pen-injecto r 2021-04 2-16 00:00: 00 Yes [id number] 20U Inject 20 units into the skin 3 times daily (before meals) Radha Angeovanny Kael Kina l Insulin Aspart (NovoLOG FlexPen) 100 UNIT/ML subcutaneou s Solution Pen-injecto r 2021-04 2-16 00:00: 00 Yes [id number] 20U Inject 20 units into the skin 3 times daily (before meals) Radha Anpremantonina Scruggs Externa l Insulin Aspart (NovoLOG FlexPen) 100 UNIT/ML subcutaneou s Solution Pen-injecto r 2021-04 2-16 00:00: 00 Yes [id number] 20U Inject 20 units into the skin 3 times daily (before meals) Radha Angeovanny Sandersona l Insulin Aspart (NovoLOG FlexPen) 100 UNIT/ML subcutaneou s Solution Pen-injecto r 2021-04 2-16 00:00: 00 Yes [id number] 20U Inject 20 units into the skin 3 times daily (before meals) Radha Anpremantonina - Externa l Insulin Aspart (NovoLOG FlexPen) 100 UNIT/ML subcutaneou s Solution Pen-injecto r 2021-04 2-16 00:00: 00 Yes [id number] 20U Inject 20 units into the skin 3 times daily (before meals) Radha Angeovanny Scruggs Externa l Insulin Aspart (NovoLOG FlexPen) 100 UNIT/ML subcutaneou s Solution Pen-injecto r 2021-04 2-16 00:00: 00 Yes [id number] 20U Inject 20 units into the skin 3 times daily (before meals) Radha Sandersona l Insulin Aspart (NovoLOG FlexPen) 100 UNIT/ML subcutaneou s Solution Pen-injecto r 2021-04 2-16 00:00: 00 Yes [id number] 20U Inject 20 units into the skin 3 times daily (before meals) Radha cruz Insulin Aspart (NovoLOG FlexPen) 100 UNIT/ML subcutaneou s Solution Pen-injecto r 2021-04 2-16 00:00: 00 Yes [id number] 20U Inject 20 units into the skin 3 times daily (before meals) Radha Sandersona nancy Insulin Aspart (NovoLOG FlexPen) 100 UNIT/ML subcutaneou s Solution Pen-injecto r 2021-04 2-16 00:00: 00 Yes [id number] 20U Inject 20 units into the skin 3 times daily (before meals) Radha cruz Insulin Aspart (NovoLOG FlexPen) 100 UNIT/ML subcutaneou s Solution Pen-injecto r 2021-04 2-16 00:00: 00 Yes [id number] 20U Inject 20 units into the skin 3 times daily (before meals) Radha cruz Valsartan 160 MG oral Tablet 2021-04 00:00: 00 Yes [id number] Take 2 tablets by mouth daily. Radha cruz Valsartan 160 MG oral Tablet 2021-04 00:00: 00 Yes [id number] Take 2 tablets by mouth daily. Radha cruz Valsartan 160 MG oral Tablet 2021-04 00:00: 00 Yes [id number] Take 2 tablets by mouth daily. Radha cruz Valsartan 160 MG oral Tablet 2021-04 00:00: 00 Yes [id number] Take 2 tablets by mouth daily. Radha cruz Valsartan 160 MG oral Tablet 2021-04 00:00: 00 Yes [id number] Take 2 tablets by mouth daily. Radha cruz Valsartan 160 MG oral Tablet 2021-04 00:00: 12-27 00:00 :00 No [id number] Take 2 tablets by mouth daily. Radha Anpremantonina Scruggs Kinadam cruz Valsartan 160 MG oral Tablet 2021-04 00:00: 00 12-27 00:00 :00 No [id number] Take 2 tablets by mouth daily. Radha Kamille cruz Citalopram Hydrobromid e 40 MG oral Tablet 2021-04 00:00: 00 Yes [id number] 40mg Take 1 tablet (40 mg total) by mouth daily Radha Kamille cruz Carvedilol 25 MG oral Tablet 2021-04 00:00: 00 Yes [id number] 25mg Take 1 tablet (25 mg total) by mouth in the morning and 1 tablet (25 mg total) in the evening. Take with meals. Radha Kamille cruz Metformin HCl 1000 MG oral Tablet 2021-04 00:00: 00 Yes [id number] 1000mg Take 1 tablet (1,000 mg total) by mouth in the morning and 1 tablet (1,000 mg total) in the evening. Take with meals. Radha cruz Citalopram Hydrobromid e 40 MG oral Tablet 2021-04 00:00: 00 Yes [id number] 40mg Take 1 tablet (40 mg total) by mouth daily Radha Kamille cruz Carvedilol 25 MG oral Tablet 2021-04 00:00: 00 Yes [id number] 25mg Take 1 tablet (25 mg total) by mouth in the morning and 1 tablet (25 mg total) in the evening. Take with meals. Radha Kamille cruz Metformin HCl 1000 MG oral Tablet 2021-04 00:00: 00 Yes [id number] 1000mg Take 1 tablet (1,000 mg total) by mouth in the morning and 1 tablet (1,000 mg total) in the evening. Take with meals. Radha cruz Citalopram Hydrobromid e 40 MG oral Tablet 2021-04 00:00: 00 Yes [id number] 40mg Take 1 tablet (40 mg total) by mouth daily Radha Anpremantonina Scruggs Kinadam cruz Carvedilol 25 MG oral Tablet 2021-04 00:00: 00 Yes [id number] 25mg Take 1 tablet (25 mg total) by mouth in the morning and 1 tablet (25 mg total) in the evening. Take with meals. Radha Angeovanny Kael Kinadam cruz Metformin HCl 1000 MG oral Tablet 2021-04 00:00: 00 Yes [id number] 1000mg Take 1 tablet (1,000 mg total) by mouth in the morning and 1 tablet (1,000 mg total) in the evening. Take with meals. Radha Kamille cruz Citalopram Hydrobromid e 40 MG oral Tablet 2021-04 00:00: 00 Yes [id number] 40mg Take 1 tablet (40 mg total) by mouth daily Radha Angeovanny Kael Fernando nancy Carvedilol 25 MG oral Tablet 2021-04 00:00: 00 Yes [id number] 25mg Take 1 tablet (25 mg total) by mouth in the morning and 1 tablet (25 mg total) in the evening. Take with meals. Radha Angeovanny Kael Fernando nancy Metformin HCl 1000 MG oral Tablet 2021-04 00:00: 00 Yes [id number] 1000mg Take 1 tablet (1,000 mg total) by mouth in the morning and 1 tablet (1,000 mg total) in the evening. Take with meals. Radha Kamille Kael Fernando nancy Carvedilol 25 MG oral Tablet 2021-04 00:00: 00 Yes [id number] 25mg Take 1 tablet (25 mg total) by mouth in the morning and 1 tablet (25 mg total) in the evening. Take with meals. Radha Kamille Kael Fernando cruz Carvedilol 25 MG oral Tablet 2021-04 00:00: 00 Yes [id number] 25mg Take 1 tablet (25 mg total) by mouth in the morning and 1 tablet (25 mg total) in the evening. Take with meals. Radha Kamille cruz Carvedilol 25 MG oral Tablet 2021-04 00:00: 00 Yes [id number] 25mg Take 1 tablet (25 mg total) by mouth in the morning and 1 tablet (25 mg total) in the evening. Take with meals. Radha cruz Carvedilol 25 MG oral Tablet 2021-04 00:00: 00 Yes [id number] 25mg Take 1 tablet (25 mg total) by mouth in the morning and 1 tablet (25 mg total) in the evening. Take with meals. Radha cruz Carvedilol 25 MG oral Tablet 2021-04 00:00: 00 Yes [id number] 25mg Take 1 tablet (25 mg total) by mouth in the morning and 1 tablet (25 mg total) in the evening. Take with meals. Radha cruz Citalopram Hydrobromid e 40 MG oral Tablet 2021-04 00:00: 00 Yes [id number] 40mg Take 1 tablet (40 mg total) by mouth daily Radha cruz Carvedilol 25 MG oral Tablet 2021-04 00:00: 00 Yes [id number] 25mg Take 1 tablet (25 mg total) by mouth in the morning and 1 tablet (25 mg total) in the evening. Take with meals. Radha cruz Metformin HCl 1000 MG oral Tablet 2021-04 00:00: 00 Yes [id number] 1000mg Take 1 tablet (1,000 mg total) by mouth in the morning and 1 tablet (1,000 mg total) in the evening. Take with meals. Radha cruz Glucose Blood in vitro Strip 2021-04 00:00: 00 Yes Test 3 times daily as directed Radha cruz Citalopram Hydrobromid e 40 MG oral Tablet 2021-04 00:00: 00 Yes [id number] 40mg Take 1 tablet (40 mg total) by mouth daily Radha cruz Carvedilol 25 MG oral Tablet 2021-04 00:00: 00 Yes [id number] 25mg Take 1 tablet (25 mg total) by mouth in the morning and 1 tablet (25 mg total) in the evening. Take with meals. Radha cruz Metformin HCl 1000 MG oral Tablet 2021-04 00:00: 00 Yes [id number] 1000mg Take 1 tablet (1,000 mg total) by mouth in the morning and 1 tablet (1,000 mg total) in the evening. Take with meals. Radha cruz Glucose Blood in vitro Strip 2021-04 00:00: 00 Yes Test 3 times daily as directed Radha cruz Citalopram Hydrobromid e 40 MG oral Tablet 2021-04 00:00: 00 Yes [id number] 40mg Take 1 tablet (40 mg total) by mouth daily Radha cruz Carvedilol 25 MG oral Tablet 2021-04 00:00: 00 Yes [id number] 25mg Take 1 tablet (25 mg total) by mouth in the morning and 1 tablet (25 mg total) in the evening. Take with meals. Radha cruz Metformin HCl 1000 MG oral Tablet 2021-04 00:00: 00 Yes [id number] 1000mg Take 1 tablet (1,000 mg total) by mouth in the morning and 1 tablet (1,000 mg total) in the evening. Take with meals. Radha cruz Glucose Blood in vitro Strip 2021-04 00:00: 00 Yes Test 3 times daily as directed Radha cruz ASPIR-81 81 MG OR TBEC 12-27 09:41: 59 Yes 1 TABLET DAILY Radha cruz Coenzyme Q10 (CO Q 10 OR) 12-27 09:41: 59 Yes None Entered Radha cruz Alpha-Lipoi c Acid 600 MG oral Cap 12-27 09:41: 59 Yes 600{cap praneeth} Take 600 capsules by mouth daily Radha cruz Cholecalcif abel (Vitamin D3) 50 MCG (1999 UT) oral Tab 12-27 09:41: 59 Yes Take by mouth Radha cruz ASPIR-81 81 MG OR TBEC 12-27 09:41: 59 Yes 1 TABLET DAILY Radha cruz Coenzyme Q10 (CO Q 10 OR) 12-27 09:41: 59 Yes None Entered Radha Seybold - Externa l Alpha-Lipoi c Acid 600 MG oral Cap 12-27 09:41: 59 Yes 600{cap praneeth} Take 600 capsules by mouth daily Radha Simental - Externa l Cholecalcif abel (Vitamin D3) 50 MCG (1999 UT) oral Tab 12-27 09:41: 59 Yes Take by mouth Radha Simental - Externa l Insulin Pen Needle (Unifine Pentips) 29G X 12MM does not apply Misc 2021-0 11-11 00:00: 00 Yes As directed Radha Sepremold - Externa l Insulin Pen Needle (Unifine Pentips) 29G X 12MM does not apply Misc 2021-0 11-11 00:00: 00 Yes As directed Radha Seybold - Externa l Insulin Pen Needle (Unifine Pentips) 29G X 12MM does not apply Misc 2021-0 11-11 00:00: 00 Yes As directed Radha Beckold - Externa l Insulin Pen Needle (Unifine Pentips) 29G X 12MM does not apply Misc 2021-0 11-11 00:00: 00 Yes As directed Radha Seybold - Externa l Insulin Pen Needle (Unifine Pentips) 29G X 12MM does not apply Misc 2021-0 11-11 00:00: 00 Yes As directed Radha Seybold - Externa l Insulin Pen Needle (Unifine Pentips) 29G X 12MM does not apply Misc 2021-0 11-11 00:00: 00 Yes As directed Radha Sepremold - Externa l Insulin Pen Needle (Unifine Pentips) 29G X 12MM does not apply Misc 2-0 11-11 00:00: 00 Yes As directed Radha Seybold - Externa l Insulin Pen Needle (Unifine Pentips) 29G X 12MM does not apply Misc 2-0 11-11 00:00: 00 Yes As directed Radha Anybold - Externa l Furosemide 40 MG oral Tablet 10-13 00:00: 00 Yes [id number] 40mg Take 1 tablet (40 mg total) by mouth daily Radha Simental - Externa l Furosemide 40 MG oral Tablet 10-13 00:00: 00 Yes [id number] 40mg Take 1 tablet (40 mg total) by mouth daily Radha Simental - Externa l Furosemide 40 MG oral Tablet 10-13 00:00: 00 Yes [id number] 40mg Take 1 tablet (40 mg total) by mouth daily Radha Simental - Externa l Furosemide 40 MG oral Tablet 10-13 00:00: 00 Yes [id number] 40mg Take 1 tablet (40 mg total) by mouth daily Radha Simental - Externa l Furosemide 40 MG oral Tablet 10-13 00:00: 00 Yes [id number] 40mg Take 1 tablet (40 mg total) by mouth daily Radha Simental - Externa l Furosemide 40 MG oral Tablet 10-13 00:00: 00 Yes [id number] 40mg Take 1 tablet (40 mg total) by mouth daily Radha Simental - Externa nancy Furosemide 40 MG oral Tablet 10-13 00:00: 00 Yes [id number] 40mg Take 1 tablet (40 mg total) by mouth daily Radha Simental - Externa nancy Furosemide 40 MG oral Tablet 10-13 00:00: 00 Yes [id number] 40mg Take 1 tablet (40 mg total) by mouth daily Radha Simental - Externa nancy Furosemide 40 MG oral Tablet 10-13 00:00: 00 Yes [id number] 40mg Take 1 tablet (40 mg total) by mouth daily Radha Scruggs Externa nancy Furosemide 40 MG oral Tablet 10-13 00:00: 00 Yes [id number] 40mg Take 1 tablet (40 mg total) by mouth daily Radha Simental - Externa nancy Furosemide 40 MG oral Tablet 10-13 00:00: 00 Yes [id number] 40mg Take 1 tablet (40 mg total) by mouth daily Radha Simental - Externa nancy Furosemide 40 MG oral Tablet 10-13 00:00: 00 Yes [id number] 40mg Take 1 tablet (40 mg total) by mouth daily Radha Simental - Externa nancy Furosemide 40 MG oral Tablet 10-13 00:00: 00 Yes [id number] 40mg Take 1 tablet (40 mg total) by mouth daily Radha Simental - Externa nancy Allopurinol 100 MG oral Tablet 09-26 00:00: 00 Yes [id number] 200mg Take 2 tablets (200 mg total) by mouth daily Radha cruz Allopurinol 100 MG oral Tablet 09-26 00:00: 00 Yes [id number] 200mg Take 2 tablets (200 mg total) by mouth daily Radha cruz Allopurinol 100 MG oral Tablet 09-26 00:00: 00 Yes [id number] 200mg Take 2 tablets (200 mg total) by mouth daily Radha cruz Allopurinol 100 MG oral Tablet 09-26 00:00: 00 Yes [id number] 200mg Take 2 tablets (200 mg total) by mouth daily Radha cruz ASPIR-81 81 MG OR TBEC 08-16 10:12: 31 Yes 1 TABLET DAILY Radha Simental Coenzyme Q10 (CO Q 10 OR) 08-16 10:12: 31 Yes None Entered Radha Simental Alpha-Lipoi c Acid 600 MG oral Cap 08-16 10:12: 31 Yes 600{cap praneeth} Take 600 capsules by mouth daily Radha Simental Cholecalcif abel (Vitamin D3) 50 MCG (1999 UT) oral Tab 08-16 10:12: 31 Yes Take by mouth Radha Simental Insulin Pen Needle (Unifine Pentips) 29G X 12MM does not apply Misc 07-19 00:00: 00 Yes As directed Radha Benitezmethaso ne Dipropionat e 0.05 % apply externally Ointment 06-28 00:00: 00 Yes [id number] APPLY TWICE DAILY SPARINGLY TO ITCHY SPOTS OF BODY MON-FRI NEEDED . NOT FOR USE ON FACE, ARMPITS, GROIN OR AREAS UNDER FOLDS. Radha cruz Betamethaso ne Dipropionat e 0.05 % apply externally Ointment 06-28 00:00: 00 Yes [id number] APPLY TWICE DAILY SPARINGLY TO ITCHY SPOTS OF BODY MON-FRI NEEDED . NOT FOR USE ON FACE, ARMPITS, GROIN OR AREAS UNDER FOLDS. Radha Simental - Externa l Betamethaso ne Dipropionat e 0.05 % apply externally Ointment 2021-0 06-28 00:00: 00 Yes [id number] APPLY TWICE DAILY SPARINGLY TO ITCHY SPOTS OF BODY MON-FRI NEEDED . NOT FOR USE ON FACE, ARMPITS, GROIN OR AREAS UNDER FOLDS. Radha Simental - Externa l Betamethaso ne Dipropionat e 0.05 % apply externally Ointment 0 06-28 00:00: 00 Yes [id number] APPLY TWICE DAILY SPARINGLY TO ITCHY SPOTS OF BODY MON-FRI NEEDED . NOT FOR USE ON FACE, ARMPITS, GROIN OR AREAS UNDER FOLDS. Radha Anybold - Externa l Betamethaso ne Dipropionat e 0.05 % apply externally Ointment 0 06-28 00:00: 00 Yes [id number] APPLY TWICE DAILY SPARINGLY TO ITCHY SPOTS OF BODY MON-FRI NEEDED . NOT FOR USE ON FACE, ARMPITS, GROIN OR AREAS UNDER FOLDS. Radha Simental - Externa l Betamethaso ne Dipropionat e 0.05 % apply externally Ointment 0 06-28 00:00: 00 Yes [id number] APPLY TWICE DAILY SPARINGLY TO ITCHY SPOTS OF BODY MON-FRI NEEDED . NOT FOR USE ON FACE, ARMPITS, GROIN OR AREAS UNDER FOLDS. Radha Simental - Externa l Betamethaso ne Dipropionat e 0.05 % apply externally Ointment 0 06-28 00:00: 00 Yes [id number] APPLY TWICE DAILY SPARINGLY TO ITCHY SPOTS OF BODY MON-FRI NEEDED . NOT FOR USE ON FACE, ARMPITS, GROIN OR AREAS UNDER FOLDS. Radha Seybold - Externa l Betamethaso ne Dipropionat e 0.05 % apply externally Ointment 0 06-28 00:00: 00 Yes [id number] APPLY TWICE DAILY SPARINGLY TO ITCHY SPOTS OF BODY MON-FRI NEEDED . NOT FOR USE ON FACE, ARMPITS, GROIN OR AREAS UNDER FOLDS. Radha Seybold Betamethaso ne Dipropionat e 0.05 % apply externally Ointment 06-28 00:00: 00 Yes [id number] APPLY TWICE DAILY SPARINGLY TO ITCHY SPOTS OF BODY MON-FRI NEEDED . NOT FOR USE ON FACE, ARMPITS, GROIN OR AREAS UNDER FOLDS. Radha Simental - Externa nancy Betamethaso ne Dipropionat e 0.05 % apply externally Ointment 06-28 00:00: 00 Yes [id number] APPLY TWICE DAILY SPARINGLY TO ITCHY SPOTS OF BODY MON-FRI NEEDED . NOT FOR USE ON FACE, ARMPITS, GROIN OR AREAS UNDER FOLDS. Radha Simental - Externa l Betamethaso ne Dipropionat e 0.05 % apply externally Ointment 06-28 00:00: 00 Yes [id number] APPLY TWICE DAILY SPARINGLY TO ITCHY SPOTS OF BODY MON-FRI NEEDED . NOT FOR USE ON FACE, ARMPITS, GROIN OR AREAS UNDER FOLDS. Radha Simental - Externa l Betamethaso ne Dipropionat e 0.05 % apply externally Ointment 06-28 00:00: 00 Yes [id number] APPLY TWICE DAILY SPARINGLY TO ITCHY SPOTS OF BODY MON-FRI NEEDED . NOT FOR USE ON FACE, ARMPITS, GROIN OR AREAS UNDER FOLDS. Radha Simental - Externa l Betamethaso ne Dipropionat e 0.05 % apply externally Ointment 06-28 00:00: 00 03-13 00:00 :00 No [id number] APPLY TWICE DAILY SPARINGLY TO ITCHY SPOTS OF BODY MON-FRI NEEDED . NOT FOR USE ON FACE, ARMPITS, GROIN OR AREAS UNDER FOLDS. Radha Beckold - Externa l Glucose Blood in vitro Strip 2- 00:00: 00 Yes Test 3 times daily as directed Radha Anybold Glucose Blood in vitro Strip 0 2- 00:00: 00 Yes Test 3 times daily as directed Radha Seybold Glucose Blood in vitro Strip 2- 00:00: 00 Yes Test 3 times daily as directed Radha Simental - Externa l Unifine Pentips 29G X 12MM does not apply [facility] [place] 00:00: 00 Yes USE FIVE TIMES DAILY DIRECTED. Radha Anybold ASPIR-81 81 MG OR TBEC 04-11 11:28: 00 Yes 1 TABLET DAILY Radha Sepremold Coenzyme Q10 (CO Q 10 OR) 04-11 11:28: 00 Yes None Entered Rdaha Simental Alpha-Lipoi c Acid 600 MG oral Cap 04-11 11:28: 00 Yes 600{cap praneeth} Take 600 capsules by mouth daily Radha Sepremold Cholecalcif abel (Vitamin D3) 50 MCG (2000 UT) oral Tab 04-11 11:28: 00 Yes Take by mouth Radha Beckold ASPIR-81 81 MG OR TBEC 04-11 11:28: 00 Yes 1 TABLET DAILY Radha ybold Coenzyme Q10 (CO Q 10 OR) 04-11 11:28: 00 Yes None Entered Radha Beckold Alpha-Lipoi c Acid 600 MG oral Cap 04-11 11:28: 00 Yes 600{cap praneeth} Take 600 capsules by mouth daily Radha Beckold Cholecalcif abel (Vitamin D3) 50 MCG (2000 UT) oral Tab 04-11 11:28: 00 Yes Take by mouth Radha Anpremantonina Nitrofurant oin Monohyd Macro (Macrobid) 100 MG oral Capsule 2020-04 00:00: 00 Yes [id number] 100mg Take 1 capsule (100 mg total) by mouth 2 times daily Radhacait Simental Nitrofurant oin Monohyd Macro (Macrobid) 100 MG oral Capsule 2020-04 00:00: 00 06-27 00:00 :00 No [id number] 100mg Take 1 capsule (100 mg total) by mouth 2 times daily Radha Simental ASPIR-81 81 MG OR TBEC 2020-04 15:49: 43 Yes 1 TABLET DAILY Radha Kiranold Coenzyme Q10 (CO Q 10 OR) 2020-04 15:49: 43 Yes None Entered Radha Beckold Alpha-Lipoi c Acid 600 MG oral Cap 2020-04 15:49: 43 Yes 600{cap praneeth} Take 600 capsules by mouth daily Radhacait Beckold Cholecalcif abel (Vitamin D3) 50 MCG (1999 UT) oral Tab 2020-04 15:49: 43 Yes Take by mouth Radha Simental Simethicone (Simethicon e Ultra Strength) 180 MG oral Capsule 2020-04 00:00: 00 Yes [id number] 1{capsu le} Take 1 capsule by mouth 4 times daily (after meals and nightly) Radha Simental Simethicone (Simethicon e Ultra Strength) 180 MG oral Capsule 2020-04 00:00: 00 Yes [id number] 1{capsu le} Take 1 capsule by mouth 4 times daily (after meals and nightly) Radha Simental Simethicone (Simethicon e Ultra Strength) 180 MG oral Capsule 2020-04 00:00: 00 Yes [id number] 1{capsu le} Take 1 capsule by mouth 4 times daily (after meals and nightly) Radha Simental Simethicone (Simethicon e Ultra Strength) 180 MG oral Capsule 2020-04 00:00: 00 06-27 00:00 :00 No [id number] 1{capsu le} Take 1 capsule by mouth 4 times daily (after meals and nightly) Radha Simental Amoxicillin -Pot Clavulanate 875-125 MG oral Tablet 2020-04 00:00: 00 Yes [id number] 1{tbl} Take 1 tablet by mouth 2 times daily Radha Simental Metronidazo le 500 MG oral Tablet 2020-04 00:00: 00 Yes [id number] 500mg Take 1 tablet (500 mg total) by mouth 3 times daily Radha Simental Amoxicillin -Pot Clavulanate 875-125 MG oral Tablet 2020-04 00:00: 00 Yes [id number] 1{tbl} Take 1 tablet by mouth 2 times daily Radha Simental Metronidazo le 500 MG oral Tablet 2020-04 00:00: 00 Yes [id number] 500mg Take 1 tablet (500 mg total) by mouth 3 times daily Radha Simental Amoxicillin -Pot Clavulanate 875-125 MG oral Tablet 2020-04 00:00: 00 Yes [id number] 1{tbl} Take 1 tablet by mouth 2 times daily Radha Sepremantonina Metronidazo le 500 MG oral Tablet 2020-04 00:00: 00 Yes [id number] 500mg Take 1 tablet (500 mg total) by mouth 3 times daily Radha Sepremantonina Amoxicillin -Pot Clavulanate 875-125 MG oral Tablet 2020-04 2 00:00: 00 06-27 00:00 :00 No [id number] 1{tbl} Take 1 tablet by mouth 2 times daily Radha Anpremantonina Metronidazo le 500 MG oral Tablet 2020-04 00:00: 00 06-27 00:00 :00 No [id number] 500mg Take 1 tablet (500 mg total) by mouth 3 times daily Radha geovanny ASPIR-81 81 MG OR TBEC 2020-04 13:01: 10 Yes 1 TABLET DAILY Radha Simental Coenzyme Q10 (CO Q 10 OR) 2020-04 13:01: 10 Yes None Entered Radha Simental Alpha-Lipoi c Acid 600 MG oral Cap 2020-04 13:01: 10 Yes 600{cap praneeth} Take 600 capsules by mouth daily Radha Simental Cholecalcif abel (Vitamin D3) 50 MCG (1999 UT) oral Tab 2020-04 13:01: 10 Yes Take by mouth Radha geovanny ASPIR-81 81 MG OR TBEC 2020-04 13:01: 10 Yes 1 TABLET DAILY Radha Simental Coenzyme Q10 (CO Q 10 OR) 2020-04 13:01: 10 Yes None Entered Radha geovanny Alpha-Lipoi c Acid 600 MG oral Cap 2020-04 13:01: 10 Yes 600{cap praneeth} Take 600 capsules by mouth daily Radha Simental Cholecalcif abel (Vitamin D3) 50 MCG (1999) oral Tab 2020-04 13:01: 10 Yes Take by mouth Radha geovanny ASPIR-81 81 MG OR TBEC 2020-04 13:01: 10 Yes 1 TABLET DAILY Radha Simental Coenzyme Q10 (CO Q 10 OR) 2020-04 13:01: 10 Yes None Entered Radha Simental Alpha-Lipoi c Acid 600 MG oral Cap 2020-04 13:01: 10 Yes 600{cap praneeth} Take 600 capsules by mouth daily Radha Simental Cholecalcif abel (Vitamin D3) 50 MCG (2000 UT) oral Tab 2020-04 13:01: 10 Yes Take by mouth Radha Simental ASPIR-81 81 MG OR TBEC 2020-04 13:01: 10 Yes 1 TABLET DAILY Radha Simental Coenzyme Q10 (CO Q 10 OR) 2020-04 13:01: 10 Yes None Entered Radha Simental Alpha-Lipoi c Acid 600 MG oral Cap 2020-04 13:01: 10 Yes 600{cap praneeth} Take 600 capsules by mouth daily Radha Simental Cholecalcif abel (Vitamin D3) 50 MCG (1999 UT) oral Tab 2020-04 13:01: 10 Yes Take by mouth Radha Simental Pantoprazol e Sodium 40 MG oral Tablet Delayed Response 2020-04 00:00: 00 Yes 40mg Take 1 tablet (40 mg total) by mouth daily Radha Simental Pantoprazol e Sodium 40 MG oral Tablet Delayed Response 2020-04 00:00: 00 Yes 40mg Take 1 tablet (40 mg total) by mouth daily Radha Simental Pantoprazol e Sodium 40 MG oral Tablet Delayed Response 2020-04 00:00: 00 Yes 40mg Take 1 tablet (40 mg total) by mouth daily Radha Simental Pantoprazol e Sodium 40 MG oral Tablet Delayed Response 2020-04 00:00: 00 Yes 40mg Take 1 tablet (40 mg total) by mouth daily Radha Simental Pantoprazol e Sodium 40 MG oral Tablet Delayed Response 2020-04 00:00: 00 06-27 00:00 :00 No 40mg Take 1 tablet (40 mg total) by mouth daily Radha Simental ASPIR-81 81 MG OR TBEC 2020-04 12:51: 04 Yes 1 TABLET DAILY Radha Simental Coenzyme Q10 (CO Q 10 OR) 2020-04 12:51: 04 Yes None Entered Radha Simental Alpha-Lipoi c Acid 600 MG oral Cap 2020-04 12:51: 04 Yes 600{cap praneeth} Take 600 capsules by mouth daily Radha Simental Cholecalcif abel (Vitamin D3) 50 MCG (1999) oral Tab 2020-04 12:51: 04 Yes Take by mouth Radha Anpremantonina ASPIR-81 81 MG OR TBEC 2020-04 09:49: 25 Yes 1 TABLET DAILY Radha Anpermantonina Coenzyme Q10 (CO Q 10 OR) 2020-04 09:49: 25 Yes None Entered Radha Anpremantonina Alpha-Lipoi c Acid 600 MG oral Cap 2020-04 09:49: 25 Yes 600{cap praneeth} Take 600 capsules by mouth daily Radha Simental Cholecalcif abel (Vitamin D3) 50 MCG (1999) oral Tab 2020-04 09:49: 25 Yes Take by mouth Radha Sepremantonina prednisoLON E Acetate 1 % ophthalmic Suspension 2020-04 00:00: 00 Yes 1[drp] Place 1 drop into the left eye 4 times daily *BDP* Radha Anpremantonina DICLOFENAC SODIUM, OPHTH, 0.1 % ophthalmic Solution 2020-04 00:00: 00 Yes 1[drp] Place 1 drop into the left eye 4 times daily *BDP* Radha Anpremantonina prednisoLON E Acetate 1 % ophthalmic Suspension 2020-04 00:00: 00 Yes 1[drp] Place 1 drop into the left eye 4 times daily *BDP* Radha Anpremantonina DICLOFENAC SODIUM, OPHTH, 0.1 % ophthalmic Solution 2020-04 00:00: 00 Yes 1[drp] Place 1 drop into the left eye 4 times daily *BDP* Radha Sepremantonina prednisoLON E Acetate 1 % ophthalmic Suspension 2020-04 00:00: 00 Yes 1[drp] Place 1 drop into the left eye 4 times daily *BDP* Radha Sepremantonina DICLOFENAC SODIUM, OPHTH, 0.1 % ophthalmic Solution 2020-04 00:00: 00 Yes 1[drp] Place 1 drop into the left eye 4 times daily *BDP* Radha Kamille prednisoLON E Acetate 1 % ophthalmic Suspension 2020-04 00:00: 00 Yes 1[drp] Place 1 drop into the left eye 4 times daily *BDP* Radha Simental DICLOFENAC SODIUM, OPHTH, 0.1 % ophthalmic Solution 2020-04 00:00: 00 Yes 1[drp] Place 1 drop into the left eye 4 times daily *BDP* Radha Simental prednisoLON E Acetate 1 % ophthalmic Suspension 2020-04 00:00: 00 Yes 1[drp] Place 1 drop into the left eye 4 times daily *BDP* Radha Simental DICLOFENAC SODIUM, OPHTH, 0.1 % ophthalmic Solution 2020-04 00:00: 00 Yes 1[drp] Place 1 drop into the left eye 4 times daily *BDP* Radha Simental prednisoLON E Acetate 1 % ophthalmic Suspension 2020-04 00:00: 00 Yes 1[drp] Place 1 drop into the left eye 4 times daily *BDP* Radha Simental DICLOFENAC SODIUM, OPHTH, 0.1 % ophthalmic Solution 2020-04 00:00: 00 Yes 1[drp] Place 1 drop into the left eye 4 times daily *BDP* Radha Simental prednisoLON E Acetate 1 % ophthalmic Suspension 2020-04 00:00: 00 Yes 1[drp] Place 1 drop into the left eye 4 times daily *BDP* Radha Simental DICLOFENAC SODIUM, OPHTH, 0.1 % ophthalmic Solution 2020-04 00:00: 00 Yes 1[drp] Place 1 drop into the left eye 4 times daily *BDP* Radha Simental prednisoLON E Acetate 1 % ophthalmic Suspension 2020-04 00:00: 00 Yes 1[drp] Place 1 drop into the left eye 4 times daily *BDP* Radha Simental DICLOFENAC SODIUM, OPHTH, 0.1 % ophthalmic Solution 2020-04 00:00: 00 Yes 1[drp] Place 1 drop into the left eye 4 times daily *BDP* Radha Simental prednisoLON E Acetate 1 % ophthalmic Suspension 2020-04 00:00: 00 06-27 00:00 :00 No 1[drp] Place 1 drop into the left eye 4 times daily *BDP* Radha Simental DICLOFENAC SODIUM, OPHTH, 0.1 % ophthalmic Solution 2020-04 00:00: 00 06-27 00:00 :00 No 1[drp] Place 1 drop into the left eye 4 times daily *BDP* Radha Simental Moxifloxaci n HCl 0.5 % ophthalmic Solution 2020-04 00:00: 00 03-03 05:59 :00 No 1[drp] Place 1 drop into the left eye 4 times daily for 7 days *BDP* Radha Simental Moxifloxaci n HCl 0.5 % ophthalmic Solution 2020-04 00:00: 00 03-03 05:59 :00 No 1[drp] Place 1 drop into the left eye 4 times daily for 7 days *BDP* Radha Simental Valsartan 160 MG oral Tablet 2020-04 00:00: 00 Yes [id number] Take 2 tablets by mouth daily. Radha Simental Valsartan 160 MG oral Tablet 2020-04 00:00: 00 Yes [id number] Take 2 tablets by mouth daily. Radha Beckold Valsartan 160 MG oral Tablet 2020-04 00:00: 00 Yes [id number] Take 2 tablets by mouth daily. Radha Simental Valsartan 160 MG oral Tablet 2020-04 00:00: 00 Yes [id number] Take 2 tablets by mouth daily. Radha Simental Valsartan 160 MG oral Tablet 2020-04 00:00: 00 Yes [id number] Take 2 tablets by mouth daily. Radha Beckold Valsartan 160 MG oral Tablet 2020-04 00:00: 00 Yes [id number] Take 2 tablets by mouth daily. Radhacait Beckold Valsartan 160 MG oral Tablet 2020-04 00:00: 00 Yes [id number] Take 2 tablets by mouth daily. Radhacait Beckold Valsartan 160 MG oral Tablet 2020-04 00:00: 00 Yes [id number] Take 2 tablets by mouth daily. Radha Seybold Valsartan 160 MG oral Tablet 2020-04 00:00: 00 Yes [id number] Take 2 tablets by mouth daily. Radha Segeovanny Valsartan 160 MG oral Tablet 2020-04 00:00: 00 Yes [id number] Take 2 tablets by mouth daily. Radha Sepremantonina Valsartan 160 MG oral Tablet 2020-04 00:00: 00 Yes [id number] Take 2 tablets by mouth daily. Radha Simental - Externa l ASPIR-81 81 MG OR TBEC 2020-04 13:16: 20 Yes 1 TABLET DAILY Radha Simental Coenzyme Q10 (CO Q 10 OR) 2020-04 13:16: 20 Yes None Entered Radha Simental Alpha-Lipoi c Acid 600 MG oral Cap 2020-04 13:16: 20 Yes 600{cap praneeth} Take 600 capsules by mouth daily Radha Simental Cholecalcif abel (Vitamin D3) 50 MCG (1999 UT) oral Tab 2020-04 13:16: 20 Yes Take by mouth Radha Simental ASPIR-81 81 MG OR TBEC 2020-04 10:50: 31 Yes 1 TABLET DAILY Radha Simental Coenzyme Q10 (CO Q 10 OR) 2020-04 10:50: 31 Yes None Entered Radha Simental Alpha-Lipoi c Acid 600 MG oral Cap 2020-04 10:50: 31 Yes 600{cap praneeth} Take 600 capsules by mouth daily Radha Simental Cholecalcif abel (Vitamin D3) 50 MCG (2000 UT) oral Tab 2020-04 10:50: 31 Yes Take by mouth Radha Simental Carvedilol 25 MG oral Tablet 2020-04 00:00: 00 Yes [id number] 25mg Take 1 tablet (25 mg total) by mouth 2 times daily (with meals) Radha Simental Metformin HCl 1000 MG oral Tablet 2020-04 00:00: 00 Yes [id number] 1000mg Take 1 tablet (1,000 mg total) by mouth 2 times daily (with meals) Radha Simental Carvedilol 25 MG oral Tablet 2020-04 00:00: 00 Yes [id number] 25mg Take 1 tablet (25 mg total) by mouth 2 times daily (with meals) Radha Sepremantonina Metformin HCl 1000 MG oral Tablet 2020-04 00:00: 00 Yes [id number] 1000mg Take 1 tablet (1,000 mg total) by mouth 2 times daily (with meals) Radha premantonina Carvedilol 25 MG oral Tablet 2020-04 00:00: 00 Yes [id number] 25mg Take 1 tablet (25 mg total) by mouth 2 times daily (with meals) Radha Beckantonina Metformin HCl 1000 MG oral Tablet 2020-04 00:00: 00 Yes [id number] 1000mg Take 1 tablet (1,000 mg total) by mouth 2 times daily (with meals) Radha Beckantonina Carvedilol 25 MG oral Tablet 2020-04 00:00: 00 Yes [id number] 25mg Take 1 tablet (25 mg total) by mouth 2 times daily (with meals) Radha Simental Metformin HCl 1000 MG oral Tablet 2020-04 00:00: 00 Yes [id number] 1000mg Take 1 tablet (1,000 mg total) by mouth 2 times daily (with meals) Radha Beckantonina Carvedilol 25 MG oral Tablet 2020-04 00:00: 00 Yes [id number] 25mg Take 1 tablet (25 mg total) by mouth 2 times daily (with meals) Radha Simental Metformin HCl 1000 MG oral Tablet 2020-04 00:00: 00 Yes [id number] 1000mg Take 1 tablet (1,000 mg total) by mouth 2 times daily (with meals) Radha Simental Carvedilol 25 MG oral Tablet 2020-04 00:00: 00 Yes [id number] 25mg Take 1 tablet (25 mg total) by mouth 2 times daily (with meals) Radha Simental Metformin HCl 1000 MG oral Tablet 2020-04 00:00: 00 Yes [id number] 1000mg Take 1 tablet (1,000 mg total) by mouth 2 times daily (with meals) Radha Simental Carvedilol 25 MG oral Tablet 2020-04 00:00: 00 Yes [id number] 25mg Take 1 tablet (25 mg total) by mouth 2 times daily (with meals) Radha Simental Metformin HCl 1000 MG oral Tablet 2020-04 00:00: 00 Yes [id number] 1000mg Take 1 tablet (1,000 mg total) by mouth 2 times daily (with meals) Radha Simental Carvedilol 25 MG oral Tablet 2020-0415 00:00: 00 Yes [id number] 25mg Take 1 tablet (25 mg total) by mouth 2 times daily (with meals) Radhacait Simental Metformin HCl 1000 MG oral Tablet 2020-04 00:00: 00 Yes [id number] 1000mg Take 1 tablet (1,000 mg total) by mouth 2 times daily (with meals) Radhacait Simental Carvedilol 25 MG oral Tablet 2020-04 00:00: 00 Yes [id number] 25mg Take 1 tablet (25 mg total) by mouth 2 times daily (with meals) Radhacait Simental Metformin HCl 1000 MG oral Tablet 2020-04 00:00: 00 Yes [id number] 1000mg Take 1 tablet (1,000 mg total) by mouth 2 times daily (with meals) Radhacait Simental Carvedilol 25 MG oral Tablet 2020-04 00:00: 00 Yes [id number] 25mg Take 1 tablet (25 mg total) by mouth 2 times daily (with meals) Radhacait Simental Metformin HCl 1000 MG oral Tablet 2020-04 00:00: 00 Yes [id number] 1000mg Take 1 tablet (1,000 mg total) by mouth 2 times daily (with meals) Radhacait Simental Carvedilol 25 MG oral Tablet 2020-04 00:00: 00 Yes [id number] 25mg Take 1 tablet (25 mg total) by mouth 2 times daily (with meals) Radhacait Simental Metformin HCl 1000 MG oral Tablet 2020-04 00:00: 00 Yes [id number] 1000mg Take 1 tablet (1,000 mg total) by mouth 2 times daily (with meals) Radhacait Simental Carvedilol 25 MG oral Tablet 2020-04 00:00: 00 Yes [id number] 25mg Take 1 tablet (25 mg total) by mouth 2 times daily (with meals) Radha Kamille Metformin HCl 1000 MG oral Tablet 2020-04 00:00: 00 Yes [id number] 1000mg Take 1 tablet (1,000 mg total) by mouth 2 times daily (with meals) Radha Simental Carvedilol 25 MG oral Tablet 2020-04 00:00: 00 Yes [id number] 25mg Take 1 tablet (25 mg total) by mouth 2 times daily (with meals) Radha Simental - Externa l Metformin HCl 1000 MG oral Tablet 2020-04 00:00: 00 Yes [id number] 1000mg Take 1 tablet (1,000 mg total) by mouth 2 times daily (with meals) Radha Anpremantonina - Kina l Insulin Detemir (Levemir FlexTouch) 100 UNIT/ML subcutaneou s Solution Pen-injecto r 2020-04 0- 00:00: 00 Yes Inject 40-50 units into the skin 2 times daily. This replaces Lantus Deenaostar Radha Seybold Insulin Detemir (Levemir FlexTouch) 100 UNIT/ML subcutaneou s Solution Pen-injecto r 2020-04 0 00:00: 00 Yes Inject 40-50 units into the skin 2 times daily. This replaces Lantus Solostar Radha Seybold Insulin Detemir (Levemir FlexTouch) 100 UNIT/ML subcutaneou s Solution Pen-injecto r 2020-04 0-05 00:00: 00 Yes Inject 40-50 units into the skin 2 times daily. This replaces Lantus Solostar Radha Seybold Insulin Detemir (Levemir FlexTouch) 100 UNIT/ML subcutaneou s Solution Pen-injecto r 2020-04 0-05 00:00: 00 Yes Inject 40-50 units into the skin 2 times daily. This replaces Lantus Solostar Radha Seybold Insulin Detemir (Levemir FlexTouch) 100 UNIT/ML subcutaneou s Solution Pen-injecto r 2020-04 0-05 00:00: 00 Yes Inject 40-50 units into the skin 2 times daily. This replaces Lantus Solostar Radha Seybold Insulin Detemir (Levemir FlexTouch) 100 UNIT/ML subcutaneou s Solution Pen-injecto r 2020-04 0-05 00:00: 00 Yes Inject 40-50 units into the skin 2 times daily. This replaces Lantus Axelar Radha Seybold Insulin Detemir (Levemir FlexTouch) 100 UNIT/ML subcutaneou s Solution Pen-injecto r 2020-04 0-05 00:00: 00 Yes Inject 40-50 units into the skin 2 times daily. This replaces Lantus Deenaostar Radha Seybold Insulin Detemir (Levemir FlexTouch) 100 UNIT/ML subcutaneou s Solution Pen-injecto r 2020-04 0-05 00:00: 00 Yes Inject 40-50 units into the skin 2 times daily. This replaces Lantus Deenaostar Radha Seybold Insulin Detemir (Levemir FlexTouch) 100 UNIT/ML subcutaneou s Solution Pen-injecto r 2020-04 0-05 00:00: 00 Yes Inject 40-50 units into the skin 2 times daily. This replaces Lantus Naomi Garcia Seybold Insulin Detemir (Levemir FlexTouch) 100 UNIT/ML subcutaneou s Solution Pen-injecto r 2020-04 0-05 00:00: 00 Yes Inject 40-50 units into the skin 2 times daily. This replaces Lantus Naomi Garcia Seybold Insulin Detemir (Levemir FlexTouch) 100 UNIT/ML subcutaneou s Solution Pen-injecto r 2020-04 0-05 00:00: 00 Yes Inject 40-50 units into the skin 2 times daily. This replaces Lantus Naomi Garcia Seybold Insulin Detemir (Levemir FlexTouch) 100 UNIT/ML subcutaneou s Solution Pen-injecto r 2020-04 0-05 00:00: 00 Yes Inject 40-50 units into the skin 2 times daily. This replaces Lantus Deenaostar Radha Seybold Insulin Detemir (Levemir FlexTouch) 100 UNIT/ML subcutaneou s Solution Pen-injecto r 2020-04 0-05 00:00: 00 Yes Inject 40-50 units into the skin 2 times daily. This replaces Lantus Deenaostar Radha Seybold - Externa l Citalopram Hydrobromid e 40 MG oral Tablet 12-02 00:00: 00 Yes [id number] 40mg Take 1 tablet (40 mg total) by mouth daily Radha Simental Insulin Aspart (NovoLOG FlexPen) 100 UNIT/ML subcutaneou s Solution Pen-injecto r 12-02 00:00: 00 Yes [id number] 20U Inject 20 units into the skin 3 times daily (before meals) aRdha Simental Citalopram Hydrobromid e 40 MG oral Tablet 12-02 00:00: 00 Yes [id number] 40mg Take 1 tablet (40 mg total) by mouth daily Radha Anpremantonian Insulin Aspart (NovoLOG FlexPen) 100 UNIT/ML subcutaneou s Solution Pen-injecto r 12-02 00:00: 00 Yes [id number] 20U Inject 20 units into the skin 3 times daily (before meals) Radha Simental Citalopram Hydrobromid e 40 MG oral Tablet 12-02 00:00: 00 Yes [id number] 40mg Take 1 tablet (40 mg total) by mouth daily Radha Sepremantonina Insulin Aspart (NovoLOG FlexPen) 100 UNIT/ML subcutaneou s Solution Pen-injecto r 12-02 00:00: 00 Yes [id number] 20U Inject 20 units into the skin 3 times daily (before meals) Radha Simental Citalopram Hydrobromid e 40 MG oral Tablet 12-02 00:00: 00 Yes [id number] 40mg Take 1 tablet (40 mg total) by mouth daily Radha Anpremantonina Insulin Aspart (NovoLOG FlexPen) 100 UNIT/ML subcutaneou s Solution Pen-injecto r 12-02 00:00: 00 Yes [id number] 20U Inject 20 units into the skin 3 times daily (before meals) Radha Simental Citalopram Hydrobromid e 40 MG oral Tablet 12-02 00:00: 00 Yes [id number] 40mg Take 1 tablet (40 mg total) by mouth daily Radha Seybold Insulin Aspart (NovoLOG FlexPen) 100 UNIT/ML subcutaneou s Solution Pen-injecto r 12-02 00:00: 00 Yes [id number] 20U Inject 20 units into the skin 3 times daily (before meals) Radha Simental Citalopram Hydrobromid e 40 MG oral Tablet 12-02 00:00: 00 Yes [id number] 40mg Take 1 tablet (40 mg total) by mouth daily Radha Sepremantonina Insulin Aspart (NovoLOG FlexPen) 100 UNIT/ML subcutaneou s Solution Pen-injecto r 12-02 00:00: 00 Yes [id number] 20U Inject 20 units into the skin 3 times daily (before meals) Radha Simental Citalopram Hydrobromid e 40 MG oral Tablet 12-02 00:00: 00 Yes [id number] 40mg Take 1 tablet (40 mg total) by mouth daily Radha Anpremantonina Insulin Aspart (NovoLOG FlexPen) 100 UNIT/ML subcutaneou s Solution Pen-injecto r 12-02 00:00: 00 Yes [id number] 20U Inject 20 units into the skin 3 times daily (before meals) Radha Simental Citalopram Hydrobromid e 40 MG oral Tablet 12-02 00:00: 00 Yes [id number] 40mg Take 1 tablet (40 mg total) by mouth daily Radha Sepremantonina Insulin Aspart (NovoLOG FlexPen) 100 UNIT/ML subcutaneou s Solution Pen-injecto r 12-02 00:00: 00 Yes [id number] 20U Inject 20 units into the skin 3 times daily (before meals) Radha Simental Citalopram Hydrobromid e 40 MG oral Tablet 12-02 00:00: 00 Yes [id number] 40mg Take 1 tablet (40 mg total) by mouth daily Radha Anpremold Insulin Aspart (NovoLOG FlexPen) 100 UNIT/ML subcutaneou s Solution Pen-injecto r 12-02 00:00: 00 Yes [id number] 20U Inject 20 units into the skin 3 times daily (before meals) Radha Simental Citalopram Hydrobromid e 40 MG oral Tablet 12-02 00:00: 00 Yes [id number] 40mg Take 1 tablet (40 mg total) by mouth daily Radha Beckold Insulin Aspart (NovoLOG FlexPen) 100 UNIT/ML subcutaneou s Solution Pen-injecto r 12-02 00:00: 00 Yes [id number] 20U Inject 20 units into the skin 3 times daily (before meals) Radha Simental Citalopram Hydrobromid e 40 MG oral Tablet 12-02 00:00: 00 Yes [id number] 40mg Take 1 tablet (40 mg total) by mouth daily Radha Simental Citalopram Hydrobromid e 40 MG oral Tablet 12-02 00:00: 00 Yes [id number] 40mg Take 1 tablet (40 mg total) by mouth daily Radha Simental Insulin Aspart (NovoLOG FlexPen) 100 UNIT/ML subcutaneou s Solution Pen-injecto r 12-02 00:00: 00 Yes [id number] 20U Inject 20 units into the skin 3 times daily (before meals) Radha Simental Insulin Aspart (NovoLOG FlexPen) 100 UNIT/ML subcutaneou s Solution Pen-injecto r 12-02 00:00: 00 Yes [id number] 20U Inject 20 units into the skin 3 times daily (before meals) Radha Simental Citalopram Hydrobromid e 40 MG oral Tablet 12-02 00:00: 00 Yes [id number] 40mg Take 1 tablet (40 mg total) by mouth daily Radha cruz Insulin Aspart (NovoLOG FlexPen) 100 UNIT/ML subcutaneou s Solution Pen-injecto r 12-02 00:00: 00 Yes [id number] 20U Inject 20 units into the skin 3 times daily (before meals) Radha King l Betamethaso ne Dipropionat e 0.05 % apply externally Ointment 10-04 00:00: 00 Yes [id number] Apply BID sparingly to itchy spots of body Sun-Sun PRN. Not for use on face, armpits, groin or areas under folds. Radha Simental Tacrolimus (Protopic) 0.1 % apply externally Ointment 10-04 00:00: 00 Yes [id number] Apply sparingly BID to rash of armpits and groin prn Radha Seybold Betamethaso ne Dipropionat e 0.05 % apply externally Ointment 10-04 00:00: 00 Yes [id number] Apply BID sparingly to itchy spots of body Mon-Fri PRN. Not for use on face, armpits, groin or areas under folds. Radha Simental Tacrolimus (Protopic) 0.1 % apply externally Ointment 10-04 00:00: 00 Yes [id number] Apply sparingly BID to rash of armpits and groin prn Radha Beckold Betamethaso ne Dipropionat e 0.05 % apply externally Ointment 10-04 00:00: 00 Yes [id number] Apply BID sparingly to itchy spots of body Mon-Fri PRN. Not for use on face, armpits, groin or areas under folds. Radha Simental Tacrolimus (Protopic) 0.1 % apply externally Ointment 10-04 00:00: 00 Yes [id number] Apply sparingly BID to rash of armpits and groin prn Radha Beckold Betamethaso ne Dipropionat e 0.05 % apply externally Ointment 10-04 00:00: 00 Yes [id number] Apply BID sparingly to itchy spots of body Mon-Fri PRN. Not for use on face, armpits, groin or areas under folds. Radha Simental Tacrolimus (Protopic) 0.1 % apply externally Ointment 10-04 00:00: 00 Yes [id number] Apply sparingly BID to rash of armpits and groin prn Radha Beckold Betamethaso ne Dipropionat e 0.05 % apply externally Ointment 10-04 00:00: 00 Yes [id number] Apply BID sparingly to itchy spots of body Mon-Fri PRN. Not for use on face, armpits, groin or areas under folds. Radha Simental Tacrolimus (Protopic) 0.1 % apply externally Ointment 10-04 00:00: 00 Yes [id number] Apply sparingly BID to rash of armpits and groin prn Radha Beckold Betamethaso ne Dipropionat e 0.05 % apply externally Ointment 10-04 00:00: 00 Yes [id number] Apply BID sparingly to itchy spots of body Mon-Fri PRN. Not for use on face, armpits, groin or areas under folds. Radha Beckold Tacrolimus (Protopic) 0.1 % apply externally Ointment 10-04 00:00: 00 Yes [id number] Apply sparingly BID to rash of armpits and groin prn Radha Beckold Betamethaso ne Dipropionat e 0.05 % apply externally Ointment 10-04 00:00: 00 Yes [id number] Apply BID sparingly to itchy spots of body Mon-Fri PRN. Not for use on face, armpits, groin or areas under folds. Radha Beckold Tacrolimus (Protopic) 0.1 % apply externally Ointment 10-04 00:00: 00 Yes [id number] Apply sparingly BID to rash of armpits and groin prn Radha Beckold Betamethaso ne Dipropionat e 0.05 % apply externally Ointment 10-04 00:00: 00 Yes [id number] Apply BID sparingly to itchy spots of body Mon-Fri PRN. Not for use on face, armpits, groin or areas under folds. Radha Beckold Tacrolimus (Protopic) 0.1 % apply externally Ointment 10-04 00:00: 00 Yes [id number] Apply sparingly BID to rash of armpits and groin prn Radha Beckold Betamethaso ne Dipropionat e 0.05 % apply externally Ointment 10-04 00:00: 00 Yes [id number] Apply BID sparingly to itchy spots of body Mon-Fri PRN. Not for use on face, armpits, groin or areas under folds. Radha Beckold Tacrolimus (Protopic) 0.1 % apply externally Ointment 10-04 00:00: 00 Yes [id number] Apply sparingly BID to rash of armpits and groin prn Radha Beckold Betamethaso ne Dipropionat e 0.05 % apply externally Ointment 10-04 00:00: 00 Yes [id number] Apply BID sparingly to itchy spots of body Mon-Fri PRN. Not for use on face, armpits, groin or areas under folds. Radha Simental Betamethaso ne Dipropionat e 0.05 % apply externally Ointment 10-04 00:00: 00 Yes [id number] Apply BID sparingly to itchy spots of body Mon-Fri PRN. Not for use on face, armpits, groin or areas under folds. Radha Simental Tacrolimus (Protopic) 0.1 % apply externally Ointment 10-04 00:00: 00 Yes [id number] Apply sparingly BID to rash of armpits and groin prn Radha Simental Tacrolimus (Protopic) 0.1 % apply externally Ointment 10-04 00:00: 00 06-27 00:00 :00 No [id number] Apply sparingly BID to rash of armpits and groin prn Radha Simental Allopurinol 100 MG oral Tablet 09-22 00:00: 00 Yes [id number] 200mg Take 2 tablets (200 mg total) by mouth daily Radha Simental Allopurinol 100 MG oral Tablet 09-22 00:00: 00 Yes [id number] 200mg Take 2 tablets (200 mg total) by mouth daily Radha Simental Allopurinol 100 MG oral Tablet 09-22 00:00: 00 Yes [id number] 200mg Take 2 tablets (200 mg total) by mouth daily Radha Simental Allopurinol 100 MG oral Tablet 09-22 00:00: 00 Yes [id number] 200mg Take 2 tablets (200 mg total) by mouth daily Radha Simental Allopurinol 100 MG oral Tablet 09-22 00:00: 00 Yes [id number] 200mg Take 2 tablets (200 mg total) by mouth daily Radha Simental Allopurinol 100 MG oral Tablet 09-22 00:00: 00 Yes [id number] 200mg Take 2 tablets (200 mg total) by mouth daily Radha Simental Allopurinol 100 MG oral Tablet 09-22 00:00: 00 Yes [id number] 200mg Take 2 tablets (200 mg total) by mouth daily Radha Seybold Allopurinol 100 MG oral Tablet 09-22 00:00: 00 Yes [id number] 200mg Take 2 tablets (200 mg total) by mouth daily Radha Seybold Allopurinol 100 MG oral Tablet 09-22 00:00: 00 Yes [id number] 200mg Take 2 tablets (200 mg total) by mouth daily Radha Seybold Allopurinol 100 MG oral Tablet 09-22 00:00: 00 Yes [id number] 200mg Take 2 tablets (200 mg total) by mouth daily Radha Seybold Allopurinol 100 MG oral Tablet 09-22 00:00: 00 Yes [id number] 200mg Take 2 tablets (200 mg total) by mouth daily Radha Seybold Allopurinol 100 MG oral Tablet 09-22 00:00: 00 Yes [id number] 200mg Take 2 tablets (200 mg total) by mouth daily Radha Seybold Colchicine 0.6 MG oral Tablet 08-17 00:00: 00 Yes [id number] .6mg Take 1 tablet (0.6 mg total) by mouth daily Radha Seybold Colchicine 0.6 MG oral Tablet 08-17 00:00: 00 Yes [id number] .6mg Take 1 tablet (0.6 mg total) by mouth daily Radha Seybold Colchicine 0.6 MG oral Tablet 08-17 00:00: 00 Yes [id number] .6mg Take 1 tablet (0.6 mg total) by mouth daily Radha Seybold Colchicine 0.6 MG oral Tablet 08-17 00:00: 00 Yes [id number] .6mg Take 1 tablet (0.6 mg total) by mouth daily Radha Seybold Colchicine 0.6 MG oral Tablet 08-17 00:00: 00 Yes [id number] .6mg Take 1 tablet (0.6 mg total) by mouth daily Radha Seybold Colchicine 0.6 MG oral Tablet 08-17 00:00: 00 Yes [id number] .6mg Take 1 tablet (0.6 mg total) by mouth daily Radha Seybold Colchicine 0.6 MG oral Tablet 08-17 00:00: 00 Yes [id number] .6mg Take 1 tablet (0.6 mg total) by mouth daily Radha Seybold Colchicine 0.6 MG oral Tablet 08-17 00:00: 00 Yes [id number] .6mg Take 1 tablet (0.6 mg total) by mouth daily Radha Seybold Colchicine 0.6 MG oral Tablet 08-17 00:00: 00 Yes [id number] .6mg Take 1 tablet (0.6 mg total) by mouth daily Radha Seybold Colchicine 0.6 MG oral Tablet 08-17 00:00: 00 Yes [id number] .6mg Take 1 tablet (0.6 mg total) by mouth daily Radha Seybold Colchicine 0.6 MG oral Tablet 08-17 00:00: 00 Yes [id number] .6mg Take 1 tablet (0.6 mg total) by mouth daily Radha Seybold Colchicine 0.6 MG oral Tablet 08-17 00:00: 00 Yes [id number] .6mg Take 1 tablet (0.6 mg total) by mouth daily Radha Seybold Colchicine 0.6 MG oral Tablet 08-17 00:00: 00 Yes [id number] .6mg Take 1 tablet (0.6 mg total) by mouth daily Radha Seybold - Externa l Colchicine 0.6 MG oral Tablet 08-17 00:00: 00 Yes [id number] .6mg Take 1 tablet (0.6 mg total) by mouth daily Radha Seybold - Externa l Colchicine 0.6 MG oral Tablet 08-17 00:00: 00 08-15 00:00 :00 No [id number] .6mg Take 1 tablet (0.6 mg total) by mouth daily Radha Seybold - Externa l Potassium Chloride Skylar CR 20 MEQ oral Tab CR 07-30 00:00: 00 Yes [id number] 20meq Take 1 tablet (20 mEq total) by mouth daily Radha Seybold Potassium Chloride Skylar CR 20 MEQ oral Tab CR 07-30 00:00: 00 Yes [id number] 20meq Take 1 tablet (20 mEq total) by mouth daily Radha Seybold Potassium Chloride Skylar CR 20 MEQ oral Tab CR 2020-0 07-30 00:00: 00 Yes [id number] 20meq Take 1 tablet (20 mEq total) by mouth daily Radha Seybold Potassium Chloride Skyalr CR 20 MEQ oral Tab CR 2020-0 07-30 00:00: 00 Yes [id number] 20meq Take 1 tablet (20 mEq total) by mouth daily Radha ybold Potassium Chloride Skylar CR 20 MEQ oral Tab CR 2020-0 07-30 00:00: 00 Yes [id number] 20meq Take 1 tablet (20 mEq total) by mouth daily Radha ybold Potassium Chloride Skylar CR 20 MEQ oral Tab CR 1-0 07-30 00:00: 00 Yes [id number] 20meq Take 1 tablet (20 mEq total) by mouth daily Radha ybold Potassium Chloride Skylar CR 20 MEQ oral Tab CR 2020-0 07-30 00:00: 00 Yes [id number] 20meq Take 1 tablet (20 mEq total) by mouth daily Radha ybold Potassium Chloride Skylar CR 20 MEQ oral Tab CR 2020-0 07-30 00:00: 00 Yes [id number] 20meq Take 1 tablet (20 mEq total) by mouth daily Radha ybold Potassium Chloride Skylar CR 20 MEQ oral Tab CR 2020-0 07-30 00:00: 00 Yes [id number] 20meq Take 1 tablet (20 mEq total) by mouth daily Radha ybold Potassium Chloride Skylar CR 20 MEQ oral Tab CR 1-0 07-30 00:00: 00 Yes [id number] 20meq Take 1 tablet (20 mEq total) by mouth daily Radha ybold Potassium Chloride Skylar CR 20 MEQ oral Tab CR 1-0 07-30 00:00: 00 Yes [id number] 20meq Take 1 tablet (20 mEq total) by mouth daily Radha ybold Potassium Chloride Skylar CR 20 MEQ oral Tab CR 1-0 07-30 00:00: 00 Yes [id number] 20meq Take 1 tablet (20 mEq total) by mouth daily Radha ybold Potassium Chloride Skylar CR 20 MEQ oral Tab CR 1-0 4-23 00:00: 00 Yes [id number] 20meq Take 1 tablet (20 mEq total) by mouth daily Radha Seybold - Externa l INSULIN SYRINGE .5CC/29G 29G X 1/2" 0.5 ML does not apply Misc 2021-0 3-16 00:00: 00 Yes [id number] For 5 times daily use Radha Seybold - Externa l INSULIN SYRINGE .5CC/29G 29G X 1/2" 0.5 ML does not apply Misc 2021-0 3-16 00:00: 00 Yes [id number] For 5 times daily use Radha Seybold - Externa l INSULIN SYRINGE .5CC/29G 29G X 1/2" 0.5 ML does not apply Misc 2021-0 3-16 00:00: 00 Yes [id number] For 5 times daily use Radha Seybold INSULIN SYRINGE .5CC/29G 29G X 1/2" 0.5 ML does not apply Misc 2021-0 3-16 00:00: 00 Yes [id number] For 5 times daily use Radha Seybold - Externa l INSULIN SYRINGE .5CC/29G 29G X 1/2" 0.5 ML does not apply Misc 2021-0 3-16 00:00: 00 Yes [id number] For 5 times daily use Radha Seybold - Externa l INSULIN SYRINGE .5CC/29G 29G X 1/2" 0.5 ML does not apply Misc 2021-0 3-16 00:00: 00 Yes [id number] For 5 times daily use Radha Seybold - Externa l INSULIN SYRINGE .5CC/29G 29G X 1/2" 0.5 ML does not apply Misc 2021-0 3-16 00:00: 00 Yes [id number] For 5 times daily use Radha Seybold - Externa l INSULIN SYRINGE .5CC/29G 29G X 1/2" 0.5 ML does not apply Misc 2021-0 3-16 00:00: 00 Yes [id number] For 5 times daily use Radha Seybold - Externa l INSULIN SYRINGE .5CC/29G 29G X 1/2" 0.5 ML does not apply Misc 2021-0 3-16 00:00: 00 Yes [id number] For 5 times daily use Radha Seybold - Externa l INSULIN SYRINGE .5CC/29G 29G X 1/2" 0.5 ML does not apply Misc 2021-0 3-16 00:00: 00 Yes [id number] For 5 times daily use Radha Seybold - Externa l INSULIN SYRINGE .5CC/29G 29G X 1/2" 0.5 ML does not apply Misc 2021-0 3-16 00:00: 00 Yes [id number] For 5 times daily use Radha Seybold INSULIN SYRINGE .5CC/29G 29G X 1/2" 0.5 ML does not apply Misc 2021-0 3-16 00:00: 00 Yes [id number] For 5 times daily use Radha Seybold INSULIN SYRINGE .5CC/29G 29G X 1/2" 0.5 ML does not apply Misc 2021-0 3-16 00:00: 00 Yes [id number] For 5 times daily use Radha Seybold INSULIN SYRINGE .5CC/29G 29G X 1/2" 0.5 ML does not apply Misc 2021-0 3-16 00:00: 00 Yes [id number] For 5 times daily use Radha Seybold INSULIN SYRINGE .5CC/29G 29G X 1/2" 0.5 ML does not apply Misc 2021-0 3-16 00:00: 00 Yes [id number] For 5 times daily use Radha Seybold INSULIN SYRINGE .5CC/29G 29G X 1/2" 0.5 ML does not apply Misc 2021-0 3-16 00:00: 00 Yes [id number] For 5 times daily use Radha Seybold INSULIN SYRINGE .5CC/29G 29G X 1/2" 0.5 ML does not apply Misc 2021-0 3-16 00:00: 00 Yes [id number] For 5 times daily use Radha Seybold INSULIN SYRINGE .5CC/29G 29G X 1/2" 0.5 ML does not apply Misc 2021-0 3-16 00:00: 00 Yes [id number] For 5 times daily use Radha Seybold INSULIN SYRINGE .5CC/29G 29G X 1/2" 0.5 ML does not apply Misc 2021-0 3-16 00:00: 00 Yes [id number] For 5 times daily use Radha Seybold INSULIN SYRINGE .5CC/29G 29G X 1/2" 0.5 ML does not apply Misc 2021-0 3-16 00:00: 00 Yes [id number] For 5 times daily use Radha Seybold INSULIN SYRINGE .5CC/29G 29G X 1/2" 0.5 ML does not apply Misc 2021-0 3-16 00:00: 00 Yes [id number] For 5 times daily use Radha Seybold INSULIN SYRINGE .5CC/29G 29G X 1/2" 0.5 ML does not apply Misc 2021-0 3-16 00:00: 00 Yes [id number] For 5 times daily use Radha Seybold - Externa l INSULIN SYRINGE .5CC/29G 29G X 1/2" 0.5 ML does not apply Misc 2021-0 3-16 00:00: 00 Yes [id number] For 5 times daily use Radha Seybold - Externa l INSULIN SYRINGE .5CC/29G 29G X 1/2" 0.5 ML does not apply Misc 2021-0 3-16 00:00: 00 Yes [id number] For 5 times daily use Radha Seybold - Externa l INSULIN SYRINGE .5CC/29G 29G X 1/2" 0.5 ML does not apply Misc 2021-0 3-16 00:00: 00 Yes [id number] For 5 times daily use Radha Seybold - Externa l Glucose Blood in vitro Strip 2021-0 3-02 00:00: 00 Yes Test 3 times daily as directed Radha Seybold Glucose Blood in vitro Strip 2021-0 3-02 00:00: 00 Yes Test 3 times daily as directed Radha Seybold Glucose Blood in vitro Strip 2021-0 3-02 00:00: 00 Yes Test 3 times daily as directed Radha Seybold Glucose Blood in vitro Strip 2021-0 3-02 00:00: 00 Yes Test 3 times daily as directed Radha Seybold Glucose Blood in vitro Strip 2021-0 3-02 00:00: 00 Yes Test 3 times daily as directed Radha Seybold Glucose Blood in vitro Strip 2021-0 3-02 00:00: 00 Yes Test 3 times daily as directed Radha Seybold Glucose Blood in vitro Strip 1-0 3-02 00:00: 00 Yes Test 3 times daily as directed Radha ybold Glucose Blood in vitro Strip 2020-0 3-02 00:00: 00 Yes Test 3 times daily as directed Radha ybold Glucose Blood in vitro Strip 2020-0 3-02 00:00: 00 Yes Test 3 times daily as directed Radha ybold Glucose Blood in vitro Strip 2020-0 3-02 00:00: 00 Yes Test 3 times daily as directed Radha ybold Furosemide 40 MG oral Tab 0 1-13 00:00: 00 Yes [id number] 40mg Take 1 tablet (40 mg total) by mouth daily Radha Seybold Furosemide 40 MG oral Tab 0 1-13 00:00: 00 Yes [id number] 40mg Take 1 tablet (40 mg total) by mouth daily Radha Seybold Furosemide 40 MG oral Tab 0 -13 00:00: 00 Yes [id number] 40mg Take 1 tablet (40 mg total) by mouth daily Radha Seybold Furosemide 40 MG oral Tab 0 -13 00:00: 00 Yes [id number] 40mg Take 1 tablet (40 mg total) by mouth daily Radha Seybold Furosemide 40 MG oral Tab 0 -13 00:00: 00 Yes [id number] 40mg Take 1 tablet (40 mg total) by mouth daily Radha Seybold Furosemide 40 MG oral Tab 0 -13 00:00: 00 Yes [id number] 40mg Take 1 tablet (40 mg total) by mouth daily Radha Seybold Furosemide 40 MG oral Tab 0 1-13 00:00: 00 Yes [id number] 40mg Take 1 tablet (40 mg total) by mouth daily Radha Seybold Furosemide 40 MG oral Tab 0 1-13 00:00: 00 Yes [id number] 40mg Take 1 tablet (40 mg total) by mouth daily Radha Seybold Furosemide 40 MG oral Tab 0 1-13 00:00: 00 Yes [id number] 40mg Take 1 tablet (40 mg total) by mouth daily Radha Seybold Furosemide 40 MG oral Tab 0 1-13 00:00: 00 Yes [id number] 40mg Take 1 tablet (40 mg total) by mouth daily Radha Simental Furosemide 40 MG oral Tab 1-13 00:00: 00 Yes [id number] 40mg Take 1 tablet (40 mg total) by mouth daily Radha Simental Furosemide 40 MG oral Tab 1-13 00:00: 00 Yes [id number] 40mg Take 1 tablet (40 mg total) by mouth daily Radha Simental Valsartan 160 MG oral Tab 12-08 00:00: 00 Yes [id number] Take 2 tablets by mouth daily. Radha Simental Valsartan 160 MG oral Tab 12-08 00:00: 00 Yes [id number] Take 2 tablets by mouth daily. Radha Simental Immunizations Ordered Immunization Name Filled Immunization Name Date Status Comments Source Influenza Virus Vaccine, Quadrivalent, High Dose, Age 65 And Up 2021-12-27 00:00:00 Completed Radha Simental - External COVID-19 Bivalent vaccine [facility] 2021-12-27 00:00:00 Completed Radha Simental - External Influenza Virus Vaccine, Quadrivalent, High Dose, Age 65 And Up 2021-12-27 00:00:00 Completed Radha Simental - External COVID-19 Bivalent vaccine [facility] 2021-12-27 00:00:00 Completed Radha Simental - External Influenza Virus Vaccine, Quadrivalent, High Dose, Age 65 And Up 2021-12-27 00:00:00 Completed Radha Simental - External COVID-19 Bivalent Booster vaccine [facility] 2021-12-27 00:00:00 Completed Radha Simental - External Influenza Virus Vaccine, Quadrivalent, High Dose, Age 65 And Up 2021-12-27 00:00:00 Completed Radha Simental - External COVID-19 Bivalent Booster vaccine [facility] 2021-12-27 00:00:00 Completed Radha Simental - External Influenza Virus Vaccine, Quadrivalent, High Dose, Age 65 And Up 2021-12-27 00:00:00 Completed Radha Simental - External COVID-19 Bivalent Booster vaccine [facility] 2021-12-27 00:00:00 Completed Radha Simental - External Influenza Virus Vaccine, Quadrivalent, High Dose, Age 65 And Up 2021-12-27 00:00:00 Completed Radha Anybold - External COVID-19 Bivalent vaccine [facility] 12+ 2021-12-27 00:00:00 Completed Radha Seybold - External Shingles IM (Shingrix) 2021-07-25 00:00:00 Completed Radha Seybold - External Shingles IM (Shingrix) 2021-07-25 00:00:00 Completed Radha Seybold - External Shingles IM (Shingrix) 2021-07-25 00:00:00 Completed Radha Seybold Shingles IM (Shingrix) 2021-07-25 00:00:00 Completed Radha Seybold - External Shingles IM (Shingrix) 2021-07-25 00:00:00 Completed Radha Seybold - External Shingles IM (Shingrix) 2021-07-25 00:00:00 Completed Radha Seybold - External Shingles IM (Shingrix) 2021-07-25 00:00:00 Completed Radha Seybold - External Shingles IM (Shingrix) 2021-05-11 00:00:00 Completed Radha Seybold - External Shingles IM (Shingrix) 2021-05-11 00:00:00 Completed Radha Seybold - External Shingles IM (Shingrix) 2021-05-11 00:00:00 Completed Radha Seybold Shingles IM (Shingrix) 2021-05-11 00:00:00 Completed Radha Seybold Shingles IM (Shingrix) 2021-05-11 00:00:00 Completed Radha Seybold - External Shingles IM (Shingrix) 2021-05-11 00:00:00 Completed Radha Seybold - External Shingles IM (Shingrix) 2021-05-11 00:00:00 Completed Radha Seybold - External Shingles IM (Shingrix) 2021-05-11 00:00:00 Completed Radha Anybold - External Influenza Virus Vaccine, Quadrivalent, High Dose, Age 65 And Up 2020-12-27 00:00:00 Completed Radha Seybold Influenza Virus Vaccine, Quadrivalent, High Dose, Age 65 And Up 2020-12-27 00:00:00 Completed Radha Seybold - External Influenza Virus Vaccine, Quadrivalent, High Dose, Age 65 And Up 2020-12-27 00:00:00 Completed Radha Seybold - External Influenza Virus Vaccine, Quadrivalent, High Dose, Age 65 And Up 2020-12-27 00:00:00 Completed Radha Seybold Influenza Virus Vaccine, Quadrivalent, High Dose, Age 65 And Up 2020-12-27 00:00:00 Completed Radha Seybold Influenza Virus Vaccine, Quadrivalent, High Dose, Age 65 And Up 2020-12-27 00:00:00 Completed Radha Seybold Influenza Virus Vaccine, Quadrivalent, High Dose, Age 65 And Up 2020-12-27 00:00:00 Completed Radha Seybold Influenza Virus Vaccine, Quadrivalent, High Dose, Age 65 And Up 2020-12-27 00:00:00 Completed Radha Seybold Influenza Virus Vaccine, Quadrivalent, High Dose, Age 65 And Up 2020-12-27 00:00:00 Completed Radha Seybold Influenza Virus Vaccine, Quadrivalent, High Dose, Age 65 And Up 2020-12-27 00:00:00 Completed Radha Seybold Influenza Virus Vaccine, Quadrivalent, High Dose, Age 65 And Up 2020-12-27 00:00:00 Completed Radha Seybold Influenza Virus Vaccine, Quadrivalent, High Dose, Age 65 And Up 2020-12-27 00:00:00 Completed Radha Seybold Influenza Virus Vaccine, Quadrivalent, High Dose, Age 65 And Up 2020-12-27 00:00:00 Completed Radha Seybold Influenza Virus Vaccine, Quadrivalent, High Dose, Age 65 And Up 2020-12-27 00:00:00 Completed Radha Seybold Influenza Virus Vaccine, Quadrivalent, High Dose, Age 65 And Up 2020-12-27 00:00:00 Completed Radha Seybold - External Influenza Virus Vaccine, Quadrivalent, High Dose, Age 65 And Up 2020-12-27 00:00:00 Completed Radha Seybold - External Influenza Virus Vaccine, Quadrivalent, High Dose, Age 65 And Up 2020-12-27 00:00:00 Completed Radha Seybold - External Influenza Virus Vaccine, Quadrivalent, High Dose, Age 65 And Up 2020-12-27 00:00:00 Completed Radha Seybold - External Covid-19 Vaccine (Pfizer), Mrna-lnp, Felix Protein, Pf, 30mcg/0.3ml,IM 2020-12-17 00:00:00 Completed Radha Seybold - External Covid-19 Vaccine (Pfizer), Mrna-lnp, Felix Protein, Pf, 30mcg/0.3ml,IM 2020-12-17 00:00:00 Completed Radha Seybold - External Covid-19 Vaccine (Pfizer), Mrna-lnp, Felix Protein, Pf, 30mcg/0.3ml,IM 2020-12-17 00:00:00 Completed Radha Seybold Covid-19 Vaccine (Pfizer), Mrna-lnp, Felix Protein, Pf, 30mcg/0.3ml,IM 2020-12-17 00:00:00 Completed Radha Seybold Covid-19 Vaccine (Pfizer), Mrna-lnp, Felix Protein, Pf, 30mcg/0.3ml,IM 2020-12-17 00:00:00 Completed Radha Seybold Covid-19 Vaccine (Pfizer), Mrna-lnp, Felix Protein, Pf, 30mcg/0.3ml,IM 2020-12-17 00:00:00 Completed Radha Seybold Covid-19 Vaccine (Pfizer), Mrna-lnp, Felix Protein, Pf, 30mcg/0.3ml,IM 2020-12-17 00:00:00 Completed Radha Seybold Covid-19 Vaccine (Pfizer), Mrna-lnp, Felix Protein, Pf, 30mcg/0.3ml,IM 2020-12-17 00:00:00 Completed Radha Seybold Covid-19 Vaccine (Pfizer), Mrna-lnp, Felix Protein, Pf, 30mcg/0.3ml,IM 2020-12-17 00:00:00 Completed Radha Seybold Covid-19 Vaccine (Pfizer), Mrna-lnp, Felix Protein, Pf, 30mcg/0.3ml,IM 2020-12-17 00:00:00 Completed Radha Seybold Covid-19 Vaccine (Pfizer), Mrna-lnp, Felix Protein, Pf, 30mcg/0.3ml,IM 2020-12-17 00:00:00 Completed Radha Seybold Covid-19 Vaccine (Pfizer), Mrna-lnp, Felix Protein, Pf, 30mcg/0.3ml,IM 2020-12-17 00:00:00 Completed Radha Seybold Covid-19 Vaccine (Pfizer), Mrna-lnp, Felix Protein, Pf, 30mcg/0.3ml,IM 2020-12-17 00:00:00 Completed Radha Seybold Covid-19 Vaccine (Pfizer), Mrna-lnp, Felix Protein, Pf, 30mcg/0.3ml,IM 2020-12-17 00:00:00 Completed Radha Seybold - External Covid-19 Vaccine (Pfizer), Mrna-lnp, Felix Protein, Pf, 30mcg/0.3ml,IM 2020-12-17 00:00:00 Completed Radha Seybold - External Covid-19 Vaccine (Pfizer), Mrna-lnp, Felix Protein, Pf, 30mcg/0.3ml,IM 2020-12-17 00:00:00 Completed Radha Seybold - External Covid-19 Vaccine (Pfizer), Mrna-lnp, Felix Protein, Pf, 30mcg/0.3ml,IM 2020-12-17 00:00:00 Completed Radha Seybold Covid-19 Vaccine (Pfizer), Mrna-lnp, Felix Protein, Pf, 30mcg/0.3ml,IM 2020-12-17 00:00:00 Completed Radha Seybold - External Covid-19 Vaccine (Pfizer), Mrna-lnp, Felix Protein, Pf, 30mcg/0.3ml,IM 2020-06-05 00:00:00 Completed Radha Seybold - External Covid-19 Vaccine (Pfizer), Mrna-lnp, Felix Protein, Pf, 30mcg/0.3ml,IM 2020-06-05 00:00:00 Completed Radha Seybold - External Covid-19 Vaccine (Pfizer), Mrna-lnp, Felix Protein, Pf, 30mcg/0.3ml,IM 2020-06-05 00:00:00 Completed Radha Seybold Covid-19 Vaccine (Pfizer), Mrna-lnp, Felix Protein, Pf, 30mcg/0.3ml,IM 2020-06-05 00:00:00 Completed Radha Seybold Covid-19 Vaccine (Pfizer), Mrna-lnp, Felix Protein, Pf, 30mcg/0.3ml,IM 2020-06-05 00:00:00 Completed Radha Seybold Covid-19 Vaccine (Pfizer), Mrna-lnp, Felix Protein, Pf, 30mcg/0.3ml,IM 2020-06-05 00:00:00 Completed Radha Seybold Covid-19 Vaccine (Pfizer), Mrna-lnp, Felix Protein, Pf, 30mcg/0.3ml,IM 2020-06-05 00:00:00 Completed Radha Seybold Covid-19 Vaccine (Pfizer), Mrna-lnp, Felix Protein, Pf, 30mcg/0.3ml,IM 2020-06-05 00:00:00 Completed Radha Seybold Covid-19 Vaccine (Pfizer), Mrna-lnp, Felix Protein, Pf, 30mcg/0.3ml,IM 2020-06-05 00:00:00 Completed Radha Seybold Covid-19 Vaccine (Pfizer), Mrna-lnp, Felix Protein, Pf, 30mcg/0.3ml,IM 2020-06-05 00:00:00 Completed Radha Seybold Covid-19 Vaccine (Pfizer), Mrna-lnp, Felix Protein, Pf, 30mcg/0.3ml,IM 2020-06-05 00:00:00 Completed Radha Seybold Covid-19 Vaccine (Pfizer), Mrna-lnp, Felix Protein, Pf, 30mcg/0.3ml,IM 2020-06-05 00:00:00 Completed Radha Seybold Covid-19 Vaccine (Pfizer), Mrna-lnp, Felix Protein, Pf, 30mcg/0.3ml,IM 2020-06-05 00:00:00 Completed Radha Seybold Covid-19 Vaccine (Pfizer), Mrna-lnp, Felix Protein, Pf, 30mcg/0.3ml,IM 2020-06-05 00:00:00 Completed Radha Seybold Covid-19 Vaccine (Pfizer), Mrna-lnp, Felix Protein, Pf, 30mcg/0.3ml,IM 2020-06-05 00:00:00 Completed Radha Seybold Covid-19 Vaccine (Pfizer), Mrna-lnp, Felix Protein, Pf, 30mcg/0.3ml,IM 2020-06-05 00:00:00 Completed Radha Seybold Covid-19 Vaccine (Pfizer), Mrna-lnp, Felix Protein, Pf, 30mcg/0.3ml,IM 2020-06-05 00:00:00 Completed Radha Seybold Covid-19 Vaccine (Pfizer), Mrna-lnp, Felix Protein, Pf, 30mcg/0.3ml,IM 2020-06-05 00:00:00 Completed Radha Seybold Covid-19 Vaccine (Pfizer), Mrna-lnp, Felix Protein, Pf, 30mcg/0.3ml,IM 2020-06-05 00:00:00 Completed Radha Seybold Covid-19 Vaccine (Pfizer), Mrna-lnp, Felix Protein, Pf, 30mcg/0.3ml,IM 2020-06-05 00:00:00 Completed Radha Seybold Covid-19 Vaccine (Pfizer), Mrna-lnp, Felix Protein, Pf, 30mcg/0.3ml,IM 2020-06-05 00:00:00 Completed Radha Seybold Covid-19 Vaccine (Pfizer), Mrna-lnp, Felix Protein, Pf, 30mcg/0.3ml,IM 2020-06-05 00:00:00 Completed Radha Seybold Covid-19 Vaccine (Pfizer), Mrna-lnp, Felix Protein, Pf, 30mcg/0.3ml,IM 2020-06-05 00:00:00 Completed Radha Seybold - External Covid-19 Vaccine (Pfizer), Mrna-lnp, Felix Protein, Pf, 30mcg/0.3ml,IM 2020-06-05 00:00:00 Completed Radha Seybold - External Covid-19 Vaccine (Pfizer), Mrna-lnp, Felix Protein, Pf, 30mcg/0.3ml,IM 2020-06-05 00:00:00 Completed Radha Seybold - External Covid-19 Vaccine (Pfizer), Mrna-lnp, Felix Protein, Pf, 30mcg/0.3ml,IM 2020-06-05 00:00:00 Completed Radha Seybold Covid-19 Vaccine (Pfizer), Mrna-lnp, Felix Protein, Pf, 30mcg/0.3ml,IM 2020-06-05 00:00:00 Completed Radha Seybold Covid-19 Vaccine (Pfizer), Mrna-lnp, Felix Protein, Pf, 30mcg/0.3ml,IM 2020-06-05 00:00:00 Completed Radha Seybold - External Covid-19 Vaccine (Pfizer), Mrna-lnp, Felix Protein, Pf, 30mcg/0.3ml,IM 2020-05-15 00:00:00 Completed Radha Seybold - External Covid-19 Vaccine (Pfizer), Mrna-lnp, Felix Protein, Pf, 30mcg/0.3ml,IM 2020-05-15 00:00:00 Completed Radha Seybold - External Covid-19 Vaccine (Pfizer), Mrna-lnp, Felix Protein, Pf, 30mcg/0.3ml,IM 2020-05-15 00:00:00 Completed Radha Seybold Covid-19 Vaccine (Pfizer), Mrna-lnp, Felix Protein, Pf, 30mcg/0.3ml,IM 2020-05-15 00:00:00 Completed Radha Seybold Covid-19 Vaccine (Pfizer), Mrna-lnp, Felix Protein, Pf, 30mcg/0.3ml,IM 2020-05-15 00:00:00 Completed Radha Seybold Covid-19 Vaccine (Pfizer), Mrna-lnp, Felix Protein, Pf, 30mcg/0.3ml,IM 2020-05-15 00:00:00 Completed Radha Seybold Covid-19 Vaccine (Pfizer), Mrna-lnp, Felix Protein, Pf, 30mcg/0.3ml,IM 2020-05-15 00:00:00 Completed Radha Seybold Covid-19 Vaccine (Pfizer), Mrna-lnp, Felix Protein, Pf, 30mcg/0.3ml,IM 2020-05-15 00:00:00 Completed Radha Seybold Covid-19 Vaccine (Pfizer), Mrna-lnp, Felix Protein, Pf, 30mcg/0.3ml,IM 2020-05-15 00:00:00 Completed Radha Seybold Covid-19 Vaccine (Pfizer), Mrna-lnp, Felix Protein, Pf, 30mcg/0.3ml,IM 2020-05-15 00:00:00 Completed Radha Seybold Covid-19 Vaccine (Pfizer), Mrna-lnp, Felix Protein, Pf, 30mcg/0.3ml,IM 2020-05-15 00:00:00 Completed Radha Seybold Covid-19 Vaccine (Pfizer), Mrna-lnp, Felix Protein, Pf, 30mcg/0.3ml,IM 2020-05-15 00:00:00 Completed Radha Seybold Covid-19 Vaccine (Pfizer), Mrna-lnp, Felix Protein, Pf, 30mcg/0.3ml,IM 2020-05-15 00:00:00 Completed Radha Seybold Covid-19 Vaccine (Pfizer), Mrna-lnp, Felix Protein, Pf, 30mcg/0.3ml,IM 2020-05-15 00:00:00 Completed Radha Seybold Covid-19 Vaccine (Pfizer), Mrna-lnp, Felix Protein, Pf, 30mcg/0.3ml,IM 2020-05-15 00:00:00 Completed Radha Seybold Covid-19 Vaccine (Pfizer), Mrna-lnp, Felix Protein, Pf, 30mcg/0.3ml,IM 2020-05-15 00:00:00 Completed Radha Seybold Covid-19 Vaccine (Pfizer), Mrna-lnp, Felix Protein, Pf, 30mcg/0.3ml,IM 2020-05-15 00:00:00 Completed Radha Seybold Covid-19 Vaccine (Pfizer), Mrna-lnp, Felix Protein, Pf, 30mcg/0.3ml,IM 2020-05-15 00:00:00 Completed Radha Seybold Covid-19 Vaccine (Pfizer), Mrna-lnp, Felix Protein, Pf, 30mcg/0.3ml,IM 2020-05-15 00:00:00 Completed Radha Seybold Covid-19 Vaccine (Pfizer), Mrna-lnp, Felix Protein, Pf, 30mcg/0.3ml,IM 2020-05-15 00:00:00 Completed Radha Seybold Covid-19 Vaccine (Pfizer), Mrna-lnp, Felix Protein, Pf, 30mcg/0.3ml,IM 2020-05-15 00:00:00 Completed Radha Seybold Covid-19 Vaccine (Pfizer), Mrna-lnp, Felix Protein, Pf, 30mcg/0.3ml,IM 2020-05-15 00:00:00 Completed Radha Seybold Covid-19 Vaccine (Pfizer), Mrna-lnp, Felix Protein, Pf, 30mcg/0.3ml,IM 2020-05-15 00:00:00 Completed Radha Seybold - External Covid-19 Vaccine (Pfizer), Mrna-lnp, Felix Protein, Pf, 30mcg/0.3ml,IM 2020-05-15 00:00:00 Completed Radha Seybold - External Covid-19 Vaccine (Pfizer), Mrna-lnp, Felix Protein, Pf, 30mcg/0.3ml,IM 2020-05-15 00:00:00 Completed Radha Seybold - External Covid-19 Vaccine (Pfizer), Mrna-lnp, Felix Protein, Pf, 30mcg/0.3ml,IM 2020-05-15 00:00:00 Completed Radha Seybold Covid-19 Vaccine (Pfizer), Mrna-lnp, Felix Protein, Pf, 30mcg/0.3ml,IM 2020-05-15 00:00:00 Completed Radha Seybold Covid-19 Vaccine (Pfizer), Mrna-lnp, Felix Protein, Pf, 30mcg/0.3ml,IM 2020-05-15 00:00:00 Completed Radha Seybold - External Influenza Virus Vaccine, Quadrivalent, High Dose, Age 65 And Up 2019-12-09 00:00:00 Completed Radha Seybold - External Influenza Virus Vaccine, Quadrivalent, High Dose, Age 65 And Up 2019-12-09 00:00:00 Completed Radha Seybold - External Influenza Virus Vaccine, Quadrivalent, High Dose, Age 65 And Up 2019-12-09 00:00:00 Completed Radha Seybold Influenza Virus Vaccine, Quadrivalent, High Dose, Age 65 And Up 2019-12-09 00:00:00 Completed Radha Seybold Influenza Virus Vaccine, Quadrivalent, High Dose, Age 65 And Up 2019-12-09 00:00:00 Completed Radha Seybold Influenza Virus Vaccine, Quadrivalent, High Dose, Age 65 And Up 2019-12-09 00:00:00 Completed Radha Seybold Influenza Virus Vaccine, Quadrivalent, High Dose, Age 65 And Up 2019-12-09 00:00:00 Completed Radha Seybold Influenza Virus Vaccine, Quadrivalent, High Dose, Age 65 And Up 2019-12-09 00:00:00 Completed Radha Seybold Influenza Virus Vaccine, Quadrivalent, High Dose, Age 65 And Up 2019-12-09 00:00:00 Completed Radha Seybold Influenza Virus Vaccine, Quadrivalent, High Dose, Age 65 And Up 2019-12-09 00:00:00 Completed Radha Seybold Influenza Virus Vaccine, Quadrivalent, High Dose, Age 65 And Up 2019-12-09 00:00:00 Completed Radha Seybold Influenza Virus Vaccine, Quadrivalent, High Dose, Age 65 And Up 2019-12-09 00:00:00 Completed Radha Seybold Influenza Virus Vaccine, Quadrivalent, High Dose, Age 65 And Up 2019-12-09 00:00:00 Completed Radha Seybold Influenza Virus Vaccine, Quadrivalent, High Dose, Age 65 And Up 2019-12-09 00:00:00 Completed Radha Seybold - External Influenza Virus Vaccine, Quadrivalent, High Dose, Age 65 And Up 2019-12-09 00:00:00 Completed Radha Seybold - External Influenza Virus Vaccine, Quadrivalent, High Dose, Age 65 And Up 2019-12-09 00:00:00 Completed Radha Seybold - External Influenza Virus Vaccine, Quadrivalent, High Dose, Age 65 And Up 2019-12-09 00:00:00 Completed Radha Seybold Influenza Virus Vaccine, Quadrivalent, High Dose, Age 65 And Up 2019-12-09 00:00:00 Completed Radha Seybold - External Influenza Virus Vaccine, High Dose, Age 65 And Up 2019-01-08 00:00:00 Completed Radha Seybold Pneumococcal Vaccine, Conjugate 2019-01-08 00:00:00 Completed Radha Seybold Influenza Virus Vaccine, High Dose, Age 65 And Up 2019-01-08 00:00:00 Completed Radha Seybold Pneumococcal Vaccine, Conjugate 2019-01-08 00:00:00 Completed Radha Seybold Influenza Virus Vaccine, High Dose, Age 65 And Up 2019-01-08 00:00:00 Completed Radha Seybold Pneumococcal Vaccine, Conjugate 2019-01-08 00:00:00 Completed Radha Seybold Influenza Virus Vaccine, High Dose, Age 65 And Up 2019-01-08 00:00:00 Completed Radha Seybold Pneumococcal Vaccine, Conjugate 2019-01-08 00:00:00 Completed Radha Seybold Influenza Virus Vaccine, High Dose, Age 65 And Up 2019-01-08 00:00:00 Completed Radha Seybold Pneumococcal Vaccine, Conjugate 2019-01-08 00:00:00 Completed Radha Seybold Influenza Virus Vaccine, High Dose, Age 65 And Up 2019-01-08 00:00:00 Completed Radha Seybold Pneumococcal Vaccine, Conjugate 2019-01-08 00:00:00 Completed Radha Seybold Influenza Virus Vaccine, High Dose, Age 65 And Up 2019-01-08 00:00:00 Completed Radha Seybold Pneumococcal Vaccine, Conjugate 2019-01-08 00:00:00 Completed Radha Seybold Influenza Virus Vaccine, High Dose, Age 65 And Up 2019-01-08 00:00:00 Completed Radha Seybold Pneumococcal Vaccine, Conjugate 2019-01-08 00:00:00 Completed Radha Seybold Influenza Virus Vaccine, High Dose, Age 65 And Up 2019-01-08 00:00:00 Completed Radha Seybold Pneumococcal Vaccine, Conjugate 2019-01-08 00:00:00 Completed Radha Seybold Influenza Virus Vaccine, High Dose, Age 65 And Up 2019-01-08 00:00:00 Completed Radha Seybold Pneumococcal Vaccine, Conjugate 2019-01-08 00:00:00 Completed Radha Seybold Influenza Virus Vaccine, High Dose, Age 65 And Up 2019-01-08 00:00:00 Completed Radha Seybold Pneumococcal Vaccine, Conjugate 13 2019-01-08 00:00:00 Completed Radha Seybold Influenza Virus Vaccine, High Dose, Age 65 And Up 2019-01-08 00:00:00 Completed Radha Seybold - External Pneumococcal Vaccine, Conjugate 13 2019-01-08 00:00:00 Completed Radha Seybold - External Influenza Virus Vaccine, High Dose, Age 65 And Up 2019-01-08 00:00:00 Completed Radha Seybold - External Pneumococcal Vaccine, Conjugate 13 2019-01-08 00:00:00 Completed Radha Seybold - External Influenza Virus Vaccine, High Dose, Age 65 And Up 2019-01-08 00:00:00 Completed Radha Seybold Influenza Virus Vaccine, High Dose, Age 65 And Up 2019-01-08 00:00:00 Completed Radha Seybold - External Pneumococcal Vaccine, Conjugate 13 2019-01-08 00:00:00 Completed Radha Seybold - External Pneumococcal Vaccine, Conjugate 13 2019-01-08 00:00:00 Completed Radha Seybold Influenza Virus Vaccine, High Dose, Age 65 And Up 2019-01-08 00:00:00 Completed Radha Seybold - External Pneumococcal Vaccine, Conjugate 13 2019-01-08 00:00:00 Completed Radha Seybold - External Influenza Virus Vaccine, High Dose, Age 65 And Up 2019-01-08 00:00:00 Completed Radha Seybold - External Pneumococcal Vaccine, Conjugate 13 2019-01-08 00:00:00 Completed Radha Seybold - External Influenza Virus Vaccine, High Dose, Age 65 And Up 2019-01-08 00:00:00 Completed Radha Seybold - External Pneumococcal Vaccine, Conjugate 13 2019-01-08 00:00:00 Completed Radha Seybold - External Tdap- (Boostrix, Adacel) 2018-08-29 00:00:00 Completed Radha Seybold - External Tdap- (Boostrix, Adacel) 2018-08-29 00:00:00 Completed Radha Seybold - External Tdap- (Boostrix, Adacel) 2018-08-29 00:00:00 Completed Radha Seybold Tdap- (Boostrix, Adacel) 2018-08-29 00:00:00 Completed Radha Seybold Tdap- (Boostrix, Adacel) 2018-08-29 00:00:00 Completed Radha Seybold Tdap- (Boostrix, Adacel) 2018-08-29 00:00:00 Completed Radha Seybold Tdap- (Boostrix, Adacel) 2018-08-29 00:00:00 Completed Radha Seybold Tdap- (Boostrix, Adacel) 2018-08-29 00:00:00 Completed Radha Seybold Tdap- (Boostrix, Adacel) 2018-08-29 00:00:00 Completed Radha Seybold Tdap- (Boostrix, Adacel) 2018-08-29 00:00:00 Completed Radha Seybold Tdap- (Boostrix, Adacel) 2018-08-29 00:00:00 Completed Radha Seybold Tdap- (Boostrix, Adacel) 2018-08-29 00:00:00 Completed Radha Seybold Tdap- (Boostrix, Adacel) 2018-08-29 00:00:00 Completed Radha Seybold Tdap- (Boostrix, Adacel) 2018-08-29 00:00:00 Completed Radha Seybold - External Tdap- (Boostrix, Adacel) 2018-08-29 00:00:00 Completed Radha Seybold - External Tdap- (Boostrix, Adacel) 2018-08-29 00:00:00 Completed Radha Seybold Tdap- (Boostrix, Adacel) 2018-08-29 00:00:00 Completed Radha Seybold - External Tdap- (Boostrix, Adacel) 2018-08-29 00:00:00 Completed Radha Seybold - External Influenza Virus Vaccine, High Dose, Age 65 And Up 2018-01-11 00:00:00 Completed Radha Seybold - External Influenza Virus Vaccine, High Dose, Age 65 And Up 2018-01-11 00:00:00 Completed Radha Seybold - External Influenza Virus Vaccine, High Dose, Age 65 And Up 2018-01-11 00:00:00 Completed Radha Seybold Influenza Virus Vaccine, High Dose, Age 65 And Up 2018-01-11 00:00:00 Completed Radha Seybold Influenza Virus Vaccine, High Dose, Age 65 And Up 2018-01-11 00:00:00 Completed Radha Seybold Influenza Virus Vaccine, High Dose, Age 65 And Up 2018-01-11 00:00:00 Completed Radha Seybold Influenza Virus Vaccine, High Dose, Age 65 And Up 2018-01-11 00:00:00 Completed Radha Seybold Influenza Virus Vaccine, High Dose, Age 65 And Up 2018-01-11 00:00:00 Completed Radha Seybold Influenza Virus Vaccine, High Dose, Age 65 And Up 2018-01-11 00:00:00 Completed Radha Seybold Influenza Virus Vaccine, High Dose, Age 65 And Up 2018-01-11 00:00:00 Completed Radha Seybold Influenza Virus Vaccine, High Dose, Age 65 And Up 2018-01-11 00:00:00 Completed Radha Seybold Influenza Virus Vaccine, High Dose, Age 65 And Up 2018-01-11 00:00:00 Completed Radha Seybold Influenza Virus Vaccine, High Dose, Age 65 And Up 2018-01-11 00:00:00 Completed Radha Seybold Influenza Virus Vaccine, High Dose, Age 65 And Up 2018-01-11 00:00:00 Completed Radha Seybold - External Influenza Virus Vaccine, High Dose, Age 65 And Up 2018-01-11 00:00:00 Completed Radha Seybold - External Influenza Virus Vaccine, High Dose, Age 65 And Up 2018-01-11 00:00:00 Completed Radha Seybold Influenza Virus Vaccine, High Dose, Age 65 And Up 2018-01-11 00:00:00 Completed Radha Seybold - External Influenza Virus Vaccine, High Dose, Age 65 And Up 2018-01-11 00:00:00 Completed Radha Seybold - External Influenza Virus Vaccine, High Dose, Age 65 And Up 2017-02-14 00:00:00 Completed Radha Seybold - External Influenza Virus Vaccine, High Dose, Age 65 And Up 2017-02-14 00:00:00 Completed Radha Seybold - External Influenza Virus Vaccine, High Dose, Age 65 And Up 2017-02-14 00:00:00 Completed Radha Seybold Influenza Virus Vaccine, High Dose, Age 65 And Up 2017-02-14 00:00:00 Completed Radha Seybold Influenza Virus Vaccine, High Dose, Age 65 And Up 2017-02-14 00:00:00 Completed Radha Seybold Influenza Virus Vaccine, High Dose, Age 65 And Up 2017-02-14 00:00:00 Completed Radha Seybold Influenza Virus Vaccine, High Dose, Age 65 And Up 2017-02-14 00:00:00 Completed Radha Seybold Influenza Virus Vaccine, High Dose, Age 65 And Up 2017-02-14 00:00:00 Completed Radha Seybold Influenza Virus Vaccine, High Dose, Age 65 And Up 2017-02-14 00:00:00 Completed Radah Seybold Influenza Virus Vaccine, High Dose, Age 65 And Up 2017-02-14 00:00:00 Completed Radha Seybold Influenza Virus Vaccine, High Dose, Age 65 And Up 2017-02-14 00:00:00 Completed Radha Seybold Influenza Virus Vaccine, High Dose, Age 65 And Up 2017-02-14 00:00:00 Completed Radha Seybold Influenza Virus Vaccine, High Dose, Age 65 And Up 2017-02-14 00:00:00 Completed Radha Seybold Influenza Virus Vaccine, High Dose, Age 65 And Up 2017-02-14 00:00:00 Completed Radha Seybold - External Influenza Virus Vaccine, High Dose, Age 65 And Up 2017-02-14 00:00:00 Completed Radha Seybold - External Influenza Virus Vaccine, High Dose, Age 65 And Up 2017-02-14 00:00:00 Completed Radha Seybold Influenza Virus Vaccine, High Dose, Age 65 And Up 2017-02-14 00:00:00 Completed Radha Seybold - External Influenza Virus Vaccine, High Dose, Age 65 And Up 2017-02-14 00:00:00 Completed Radha Seybold - External Influenza Virus Vaccine, age 6 months and up 2015-12-20 00:00:00 Completed Radha Seybold - External Influenza Virus Vaccine, age 6 months and up 2015-12-20 00:00:00 Completed Radha Seybold - External Influenza Virus Vaccine, age 6 months and up 2015-12-20 00:00:00 Completed Radha Seybold Influenza Virus Vaccine, age 6 months and up 2015-12-20 00:00:00 Completed Radha Seybold Influenza Virus Vaccine, age 6 months and up 2015-12-20 00:00:00 Completed Radha Seybold Influenza Virus Vaccine, age 6 months and up 2015-12-20 00:00:00 Completed Radha Seybold Influenza Virus Vaccine, age 6 months and up 2015-12-20 00:00:00 Completed Radha Seybold Influenza Virus Vaccine, age 6 months and up 2015-12-20 00:00:00 Completed Radha Seybold Influenza Virus Vaccine, age 6 months and up 2015-12-20 00:00:00 Completed Radha Seybold Influenza Virus Vaccine, age 6 months and up 2015-12-20 00:00:00 Completed Radha Seybold Influenza Virus Vaccine, age 6 months and up 2015-12-20 00:00:00 Completed Radha Seybold Influenza Virus Vaccine, age 6 months and up 2015-12-20 00:00:00 Completed Radha Seybold Influenza Virus Vaccine, age 6 months and up 2015-12-20 00:00:00 Completed Radha Seybold Influenza Virus Vaccine, age 6 months and up 2015-12-20 00:00:00 Completed Radha Seybold - External Influenza Virus Vaccine, age 6 months and up 2015-12-20 00:00:00 Completed Radha Seybold - External Influenza Virus Vaccine, age 6 months and up 2015-12-20 00:00:00 Completed Radha Seybold Influenza Virus Vaccine, age 6 months and up 2015-12-20 00:00:00 Completed Radha Seybold - External Influenza Virus Vaccine, age 6 months and up 2015-12-20 00:00:00 Completed Radha Seybold - External Influenza Virus Vaccine, age 6 months and up 2014-12-22 00:00:00 Completed Radha Seybold - External Influenza Virus Vaccine, age 6 months and up 2014-12-22 00:00:00 Completed Radha Seybold - External Influenza Virus Vaccine, age 6 months and up 2014-12-22 00:00:00 Completed Radha Seybold Influenza Virus Vaccine, age 6 months and up 2014-12-22 00:00:00 Completed Radha Seybold Influenza Virus Vaccine, age 6 months and up 2014-12-22 00:00:00 Completed Radha Seybold Influenza Virus Vaccine, age 6 months and up 2014-12-22 00:00:00 Completed Radha Seybold Influenza Virus Vaccine, age 6 months and up 2014-12-22 00:00:00 Completed Radha Seybold Influenza Virus Vaccine, age 6 months and up 2014-12-22 00:00:00 Completed Radha Seybold Influenza Virus Vaccine, age 6 months and up 2014-12-22 00:00:00 Completed Radha Seybold Influenza Virus Vaccine, age 6 months and up 2014-12-22 00:00:00 Completed Radha Seybold Influenza Virus Vaccine, age 6 months and up 2014-12-22 00:00:00 Completed Radha Seybold Influenza Virus Vaccine, age 6 months and up 2014-12-22 00:00:00 Completed Radha Seybold Influenza Virus Vaccine, age 6 months and up 2014-12-22 00:00:00 Completed Radha Seybold Influenza Virus Vaccine, age 6 months and up 2014-12-22 00:00:00 Completed Radha Seybold - External Influenza Virus Vaccine, age 6 months and up 2014-12-22 00:00:00 Completed Radha Seybold - External Influenza Virus Vaccine, age 6 months and up 2014-12-22 00:00:00 Completed Radha Seybold Influenza Virus Vaccine, age 6 months and up 2014-12-22 00:00:00 Completed Radha Seybold - External Influenza Virus Vaccine, age 6 months and up 2014-12-22 00:00:00 Completed Radha Seybold - External Pneumococcal Vaccine, Conjugate 13 2014-05-22 00:00:00 Completed Radha Seybold - External Pneumococcal Vaccine, Conjugate 13 2014-05-22 00:00:00 Completed Radha Seybold - External Pneumococcal Vaccine, Conjugate 13 2014-05-22 00:00:00 Completed Radha Seybold Pneumococcal Vaccine, Conjugate 13 2014-05-22 00:00:00 Completed Radha Seybold Pneumococcal Vaccine, Conjugate 13 2014-05-22 00:00:00 Completed Radha Seybold Pneumococcal Vaccine, Conjugate 13 2014-05-22 00:00:00 Completed Radha Seybold Pneumococcal Vaccine, Conjugate 13 2014-05-22 00:00:00 Completed Radha Seybold Pneumococcal Vaccine, Conjugate 13 2014-05-22 00:00:00 Completed Radha Seybold Pneumococcal Vaccine, Conjugate 13 2014-05-22 00:00:00 Completed Radha Seybold Pneumococcal Vaccine, Conjugate 13 2014-05-22 00:00:00 Completed Radha Seybold Pneumococcal Vaccine, Conjugate 13 2014-05-22 00:00:00 Completed Radha Seybold Pneumococcal Vaccine, Conjugate 13 2014-05-22 00:00:00 Completed Radha Seybold Pneumococcal Vaccine, Conjugate 13 2014-05-22 00:00:00 Completed Radha Seybold Pneumococcal Vaccine, Conjugate 13 2014-05-22 00:00:00 Completed Radha Seybold - External Pneumococcal Vaccine, Conjugate 13 2014-05-22 00:00:00 Completed Radha Seybold Pneumococcal Vaccine, Conjugate 13 2014-05-22 00:00:00 Completed Radha Seybold - External Pneumococcal Vaccine, Conjugate 13 2014-05-22 00:00:00 Completed Radha Seybold - External Pneumococcal Vaccine, Conjugate 13 2014-05-22 00:00:00 Completed Radha Seybold - External Influenza Virus Vaccine, age 6 months and up 2014-01-09 00:00:00 Completed Radha Seybold - External Influenza Virus Vaccine, age 6 months and up 2014-01-09 00:00:00 Completed Radha Seybold - External Influenza Virus Vaccine, age 6 months and up 2014-01-09 00:00:00 Completed Radha Seybold Influenza Virus Vaccine, age 6 months and up 2014-01-09 00:00:00 Completed Radha Seybold Influenza Virus Vaccine, age 6 months and up 2014-01-09 00:00:00 Completed Radha Seybold Influenza Virus Vaccine, age 6 months and up 2014-01-09 00:00:00 Completed Radha Seybold Influenza Virus Vaccine, age 6 months and up 2014-01-09 00:00:00 Completed Radha Seybold Influenza Virus Vaccine, age 6 months and up 2014-01-09 00:00:00 Completed Radha Seybold Influenza Virus Vaccine, age 6 months and up 2014-01-09 00:00:00 Completed Radha Seybold Influenza Virus Vaccine, age 6 months and up 2014-01-09 00:00:00 Completed Radha Seybold Influenza Virus Vaccine, age 6 months and up 2014-01-09 00:00:00 Completed Radha Seybold Influenza Virus Vaccine, age 6 months and up 2014-01-09 00:00:00 Completed Radha Seybold Influenza Virus Vaccine, age 6 months and up 2014-01-09 00:00:00 Completed Radha Seybold Influenza Virus Vaccine, age 6 months and up 2014-01-09 00:00:00 Completed Radha Seybold - External Influenza Virus Vaccine, age 6 months and up 2014-01-09 00:00:00 Completed Radha Seybold Influenza Virus Vaccine, age 6 months and up 2014-01-09 00:00:00 Completed Radha Seybold - External Influenza Virus Vaccine, age 6 months and up 2014-01-09 00:00:00 Completed Radha Seybold - External Influenza Virus Vaccine, age 6 months and up 2014-01-09 00:00:00 Completed Radha Seybold - External Influenza Virus Vaccine, age 6 months and up 2013-01-15 00:00:00 Completed Radha Seybold - External Pneumococcal Vaccine, Polysaccharide 2013-01-15 00:00:00 Completed Radha Seybold - External Influenza Virus Vaccine, age 6 months and up 2013-01-15 00:00:00 Completed Radha Seybold - External Pneumococcal Vaccine, Polysaccharide 2013-01-15 00:00:00 Completed Radha Seybold - External Influenza Virus Vaccine, age 6 months and up 2013-01-15 00:00:00 Completed Radha Seybold Pneumococcal Vaccine, Polysaccharide 2013-01-15 00:00:00 Completed Radha Seybold Influenza Virus Vaccine, age 6 months and up 2013-01-15 00:00:00 Completed Radha Seybold Pneumococcal Vaccine, Polysaccharide 2013-01-15 00:00:00 Completed Radha Seybold Influenza Virus Vaccine, age 6 months and up 2013-01-15 00:00:00 Completed Radha Seybold Pneumococcal Vaccine, Polysaccharide 2013-01-15 00:00:00 Completed Radha Seybold Influenza Virus Vaccine, age 6 months and up 2013-01-15 00:00:00 Completed Radha Seybold Pneumococcal Vaccine, Polysaccharide 2013-01-15 00:00:00 Completed Radha Seybold Influenza Virus Vaccine, age 6 months and up 2013-01-15 00:00:00 Completed Radha Seybold Pneumococcal Vaccine, Polysaccharide 2013-01-15 00:00:00 Completed Radha Seybold Influenza Virus Vaccine, age 6 months and up 2013-01-15 00:00:00 Completed Radha Seybold Pneumococcal Vaccine, Polysaccharide 2013-01-15 00:00:00 Completed Radha Seybold Influenza Virus Vaccine, age 6 months and up 2013-01-15 00:00:00 Completed Radha Seybold Pneumococcal Vaccine, Polysaccharide 2013-01-15 00:00:00 Completed Radha Seybold Influenza Virus Vaccine, age 6 months and up 2013-01-15 00:00:00 Completed Radha Seybold Pneumococcal Vaccine, Polysaccharide 2013-01-15 00:00:00 Completed Radha Seybold Influenza Virus Vaccine, age 6 months and up 2013-01-15 00:00:00 Completed Radha Seybold Pneumococcal Vaccine, Polysaccharide 2013-01-15 00:00:00 Completed Radha Seybold Influenza Virus Vaccine, age 6 months and up 2013-01-15 00:00:00 Completed Radha Seybold Pneumococcal Vaccine, Polysaccharide 2013-01-15 00:00:00 Completed Radha Seybold Influenza Virus Vaccine, age 6 months and up 2013-01-15 00:00:00 Completed Radha Seybold Pneumococcal Vaccine, Polysaccharide 2013-01-15 00:00:00 Completed Radha Seybold Influenza Virus Vaccine, age 6 months and up 2013-01-15 00:00:00 Completed Radha Seybold - External Pneumococcal Vaccine, Polysaccharide 2013-01-15 00:00:00 Completed Radha Seybold - External Influenza Virus Vaccine, age 6 months and up 2013-01-15 00:00:00 Completed Radha Seybold Pneumococcal Vaccine, Polysaccharide 2013-01-15 00:00:00 Completed Radha Seybold Influenza Virus Vaccine, age 6 months and up 2013-01-15 00:00:00 Completed Radha Seybold - External Pneumococcal Vaccine, Polysaccharide 2013-01-15 00:00:00 Completed Radha Seybold - External Influenza Virus Vaccine, age 6 months and up 2013-01-15 00:00:00 Completed Radha Seybold - External Pneumococcal Vaccine, Polysaccharide 2013-01-15 00:00:00 Completed Radha Seybold - External Influenza Virus Vaccine, age 6 months and up 2013-01-15 00:00:00 Completed Radha Seybold - External Pneumococcal Vaccine, Polysaccharide 2013-01-15 00:00:00 Completed Radha Seybold - External Shingles SQ (Zostavax) 2012-07-24 00:00:00 Completed Radha Seybold - External Shingles SQ (Zostavax) 2012-07-24 00:00:00 Completed Radha Seybold - External Shingles SQ (Zostavax) 2012-07-24 00:00:00 Completed Radha Seybold Shingles SQ (Zostavax) 2012-07-24 00:00:00 Completed Radha Seybold Shingles SQ (Zostavax) 2012-07-24 00:00:00 Completed Radha Seybold Shingles SQ (Zostavax) 2012-07-24 00:00:00 Completed Radha Seybold Shingles SQ (Zostavax) 2012-07-24 00:00:00 Completed Radha Seybold Shingles SQ (Zostavax) 2012-07-24 00:00:00 Completed Radha Seybold Shingles SQ (Zostavax) 2012-07-24 00:00:00 Completed Radha Seybold Shingles SQ (Zostavax) 2012-07-24 00:00:00 Completed Radha Seybold Shingles SQ (Zostavax) 2012-07-24 00:00:00 Completed Radha Seybold Shingles SQ (Zostavax) 2012-07-24 00:00:00 Completed Radha Seybold Shingles SQ (Zostavax) 2012-07-24 00:00:00 Completed Radha Seybold Shingles SQ (Zostavax) 2012-07-24 00:00:00 Completed Radha Seybold - External Shingles SQ (Zostavax) 2012-07-24 00:00:00 Completed Radha Seybold Shingles SQ (Zostavax) 2012-07-24 00:00:00 Completed Radha Seybold - External Shingles SQ (Zostavax) 2012-07-24 00:00:00 Completed Radha Seybold - External Shingles SQ (Zostavax) 2012-07-24 00:00:00 Completed Radha Seybold - External Influenza Virus Vaccine, age 6 months and up 2012-01-02 00:00:00 Completed Radha Seybold - External Influenza Virus Vaccine, age 6 months and up 2012-01-02 00:00:00 Completed Radha Seybold - External Influenza Virus Vaccine, age 6 months and up 2012-01-02 00:00:00 Completed Radha Seybold Influenza Virus Vaccine, age 6 months and up 2012-01-02 00:00:00 Completed Radha Seybold Influenza Virus Vaccine, age 6 months and up 2012-01-02 00:00:00 Completed Radha Seybold Influenza Virus Vaccine, age 6 months and up 2012-01-02 00:00:00 Completed Radha Seybold Influenza Virus Vaccine, age 6 months and up 2012-01-02 00:00:00 Completed Radha Seybold Influenza Virus Vaccine, age 6 months and up 2012-01-02 00:00:00 Completed Radha Seybold Influenza Virus Vaccine, age 6 months and up 2012-01-02 00:00:00 Completed Radha Seybold Influenza Virus Vaccine, age 6 months and up 2012-01-02 00:00:00 Completed Radha Seybold Influenza Virus Vaccine, age 6 months and up 2012-01-02 00:00:00 Completed Radha Seybold Influenza Virus Vaccine, age 6 months and up 2012-01-02 00:00:00 Completed Radha Seybold Influenza Virus Vaccine, age 6 months and up 2012-01-02 00:00:00 Completed Radha Seybold Influenza Virus Vaccine, age 6 months and up 2012-01-02 00:00:00 Completed Radha Seybold - External Influenza Virus Vaccine, age 6 months and up 2012-01-02 00:00:00 Completed Radha Seybold Influenza Virus Vaccine, age 6 months and up 2012-01-02 00:00:00 Completed Radha Seybold - External Influenza Virus Vaccine, age 6 months and up 2012-01-02 00:00:00 Completed Radha Seybold - External Influenza Virus Vaccine, age 6 months and up 2012-01-02 00:00:00 Completed Radha Seybold - External Influenza Virus Vaccine, age 6 months and up 2011-01-19 00:00:00 Completed Radha Seybold - External Influenza Virus Vaccine, age 6 months and up 2011-01-19 00:00:00 Completed Radha Seybold - External Influenza Virus Vaccine, age 6 months and up 2011-01-19 00:00:00 Completed Radha Seybold Influenza Virus Vaccine, age 6 months and up 2011-01-19 00:00:00 Completed Radha Seybold Influenza Virus Vaccine, age 6 months and up 2011-01-19 00:00:00 Completed Radha Seybold Influenza Virus Vaccine, age 6 months and up 2011-01-19 00:00:00 Completed Radha Seybold Influenza Virus Vaccine, age 6 months and up 2011-01-19 00:00:00 Completed Radha Seybold Influenza Virus Vaccine, age 6 months and up 2011-01-19 00:00:00 Completed Radha Seybold Influenza Virus Vaccine, age 6 months and up 2011-01-19 00:00:00 Completed Radha Seybold Influenza Virus Vaccine, age 6 months and up 2011-01-19 00:00:00 Completed Radha Seybold Influenza Virus Vaccine, age 6 months and up 2011-01-19 00:00:00 Completed Radha Seybold Influenza Virus Vaccine, age 6 months and up 2011-01-19 00:00:00 Completed Radha Seybold Influenza Virus Vaccine, age 6 months and up 2011-01-19 00:00:00 Completed Radha Seybold Influenza Virus Vaccine, age 6 months and up 2011-01-19 00:00:00 Completed Radha Seybold - External Influenza Virus Vaccine, age 6 months and up 2011-01-19 00:00:00 Completed Radha Seybold Influenza Virus Vaccine, age 6 months and up 2011-01-19 00:00:00 Completed Radha Seybold - External Influenza Virus Vaccine, age 6 months and up 2011-01-19 00:00:00 Completed Radah Seybold - External Influenza Virus Vaccine, age 6 months and up 2011-01-19 00:00:00 Completed Radha Seybold - External Influenza Virus Vaccine, age 6 months and up 2010-01-11 00:00:00 Completed Radha Seybold - External Influenza Virus Vaccine, age 6 months and up 2010-01-11 00:00:00 Completed Radha Seybold - External Influenza Virus Vaccine, age 6 months and up 2010-01-11 00:00:00 Completed Radha Seybold Influenza Virus Vaccine, age 6 months and up 2010-01-11 00:00:00 Completed Radha Seybold Influenza Virus Vaccine, age 6 months and up 2010-01-11 00:00:00 Completed Radha Seybold Influenza Virus Vaccine, age 6 months and up 2010-01-11 00:00:00 Completed Radha Seybold Influenza Virus Vaccine, age 6 months and up 2010-01-11 00:00:00 Completed Radha Seybold Influenza Virus Vaccine, age 6 months and up 2010-01-11 00:00:00 Completed Radha Seybold Influenza Virus Vaccine, age 6 months and up 2010-01-11 00:00:00 Completed Radha Seybold Influenza Virus Vaccine, age 6 months and up 2010-01-11 00:00:00 Completed Radha Seybold Influenza Virus Vaccine, age 6 months and up 2010-01-11 00:00:00 Completed Radha Seybold Influenza Virus Vaccine, age 6 months and up 2010-01-11 00:00:00 Completed Radha Seybold Influenza Virus Vaccine, age 6 months and up 2010-01-11 00:00:00 Completed Radha Seybold Influenza Virus Vaccine, age 6 months and up 2010-01-11 00:00:00 Completed Radha Seybold - External Influenza Virus Vaccine, age 6 months and up 2010-01-11 00:00:00 Completed Radha Seybold Influenza Virus Vaccine, age 6 months and up 2010-01-11 00:00:00 Completed Radha Seybold - External Influenza Virus Vaccine, age 6 months and up 2010-01-11 00:00:00 Completed Radha Seybold - External Influenza Virus Vaccine, age 6 months and up 2010-01-11 00:00:00 Completed Radha Seybold - External [id number] 2009-03-29 00:00:00 Completed Radha Seybold - External [id number] 2009-03-29 00:00:00 Completed Radha Seybold - External [id number] 2009-03-29 00:00:00 Completed Radha Seybold P5C7-PQ 2009-03-29 00:00:00 Completed Radha Seybold Q6A0-LZ 2009-03-29 00:00:00 Completed Radha Seybold G6M7-RC 2009-03-29 00:00:00 Completed Radha Seybold L1O0-TW 2009-03-29 00:00:00 Completed Radha Seybold W6R3-CK 2009-03-29 00:00:00 Completed Radha Seybold B3M3-XM 2009-03-29 00:00:00 Completed Radha Seybold P2V3-QI 2009-03-29 00:00:00 Completed Radha Seybold U0V5-CQ 2009-03-29 00:00:00 Completed Radha Seybold D0C3-XI 2009-03-29 00:00:00 Completed Radha Seybold V6J6-XP 2009-03-29 00:00:00 Completed Radha Seybold P1M0-VK 2009-03-29 00:00:00 Completed Radha Seybold Z4D5-RS 2009-03-29 00:00:00 Completed Radha Seybold - External [id number]-SX 2009-03-29 00:00:00 Completed Radha Seybold - External C5C8-II 2009-03-29 00:00:00 Completed Radha Seybold - External [id number]-WF 2009-03-29 00:00:00 Completed Radha Seybold - External Tdap- (Boostrix, Adacel) 2008-04-21 00:00:00 Completed Radha Seybold - External Tdap- (Boostrix, Adacel) 2008-04-21 00:00:00 Completed Radha Seybold - External Tdap- (Boostrix, Adacel) 2008-04-21 00:00:00 Completed Radha Seybold Tdap- (Boostrix, Adacel) 2008-04-21 00:00:00 Completed Radha Seybold Tdap- (Boostrix, Adacel) 2008-04-21 00:00:00 Completed Radha Seybold Tdap- (Boostrix, Adacel) 2008-04-21 00:00:00 Completed Ardha Seybold Tdap- (Boostrix, Adacel) 2008-04-21 00:00:00 Completed Radha Seybold Tdap- (Boostrix, Adacel) 2008-04-21 00:00:00 Completed Radha Seybold Tdap- (Boostrix, Adacel) 2008-04-21 00:00:00 Completed Radha Seybold Tdap- (Boostrix, Adacel) 2008-04-21 00:00:00 Completed Radha Seybold Tdap- (Boostrix, Adacel) 2008-04-21 00:00:00 Completed Radha Seybold Tdap- (Boostrix, Adacel) 2008-04-21 00:00:00 Completed Radha Seybold Tdap- (Boostrix, Adacel) 2008-04-21 00:00:00 Completed Radha Seybold Tdap- (Boostrix, Adacel) 2008-04-21 00:00:00 Completed Radha Seybold Tdap- (Boostrix, Adacel) 2008-04-21 00:00:00 Completed Radha Seybold - External Tdap- (Boostrix, Adacel) 2008-04-21 00:00:00 Completed Radha Seybold - External Tdap- (Boostrix, Adacel) 2008-04-21 00:00:00 Completed Radha Seybold - External Tdap- (Boostrix, Adacel) 2008-04-21 00:00:00 Completed Radha Seybold - External Pneumococcal Vaccine, Polysaccharide 2008-01-23 00:00:00 Completed Radha Seybold - External Influenza Virus Vaccine, age 6 months and up 2008-01-23 00:00:00 Completed Radha Seybold - External Pneumococcal Vaccine, Polysaccharide 2008-01-23 00:00:00 Completed Radha Seybold - External Influenza Virus Vaccine, age 6 months and up 2008-01-23 00:00:00 Completed Radha Seybold - External Pneumococcal Vaccine, Polysaccharide 2008-01-23 00:00:00 Completed Radha Seybold Influenza Virus Vaccine, age 6 months and up 2008-01-23 00:00:00 Completed Radha Seybold Pneumococcal Vaccine, Polysaccharide 2008-01-23 00:00:00 Completed Radha Seybold Influenza Virus Vaccine, age 6 months and up 2008-01-23 00:00:00 Completed Radha Seybold Pneumococcal Vaccine, Polysaccharide 2008-01-23 00:00:00 Completed Radha Seybold Influenza Virus Vaccine, age 6 months and up 2008-01-23 00:00:00 Completed Radha Seybold Pneumococcal Vaccine, Polysaccharide 2008-01-23 00:00:00 Completed Radha Seybold Influenza Virus Vaccine, age 6 months and up 2008-01-23 00:00:00 Completed Radha Seybold Pneumococcal Vaccine, Polysaccharide 2008-01-23 00:00:00 Completed Radha Seybold Influenza Virus Vaccine, age 6 months and up 2008-01-23 00:00:00 Completed Radha Seybold Pneumococcal Vaccine, Polysaccharide 2008-01-23 00:00:00 Completed Radha Seybold Influenza Virus Vaccine, age 6 months and up 2008-01-23 00:00:00 Completed Radha Seybold Pneumococcal Vaccine, Polysaccharide 2008-01-23 00:00:00 Completed Radha Seybold Influenza Virus Vaccine, age 6 months and up 2008-01-23 00:00:00 Completed Radha Seybold Pneumococcal Vaccine, Polysaccharide 2008-01-23 00:00:00 Completed Radha Seybold Influenza Virus Vaccine, age 6 months and up 2008-01-23 00:00:00 Completed Radha Seybold Pneumococcal Vaccine, Polysaccharide 2008-01-23 00:00:00 Completed Radha Seybold Influenza Virus Vaccine, age 6 months and up 2008-01-23 00:00:00 Completed Radha Seybold Pneumococcal Vaccine, Polysaccharide 2008-01-23 00:00:00 Completed Radha Seybold Influenza Virus Vaccine, age 6 months and up 2008-01-23 00:00:00 Completed Radha Seybold Pneumococcal Vaccine, Polysaccharide 2008-01-23 00:00:00 Completed Radha Seybold Influenza Virus Vaccine, age 6 months and up 2008-01-23 00:00:00 Completed Radha Seybold Pneumococcal Vaccine, Polysaccharide 2008-01-23 00:00:00 Completed Radha Seybold Influenza Virus Vaccine, age 6 months and up 2008-01-23 00:00:00 Completed Radha Seybold Pneumococcal Vaccine, Polysaccharide 2008-01-23 00:00:00 Completed Radha Seybold - External Influenza Virus Vaccine, age 6 months and up 2008-01-23 00:00:00 Completed Radha Seybold - External Pneumococcal Vaccine, Polysaccharide 2008-01-23 00:00:00 Completed Radha Seybold - External Influenza Virus Vaccine, age 6 months and up 2008-01-23 00:00:00 Completed Radha Seybold - External Pneumococcal Vaccine, Polysaccharide 2008-01-23 00:00:00 Completed Radha Seybold - External Influenza Virus Vaccine, age 6 months and up 2008-01-23 00:00:00 Completed Radha Seybold - External Pneumococcal Vaccine, Polysaccharide 2008-01-23 00:00:00 Completed Radha Anybold - External Influenza Virus Vaccine, age 6 months and up 2008-01-23 00:00:00 Completed Radha Seybold - External Pneumococcal Vaccine, Polysaccharide Unknown Completed Radha Anybol d - External Influenza Virus Vaccine, age 6 months and up Unknown Completed Radha Kiranold - External Tdap- (Boostrix, Adacel) Unknown Completed Radha ybold - External [id number] Unknown Completed Radha Any bold - External Influenza Virus Vaccine, age 6 months and up Unknown Completed Radha Seybold - External Influenza Virus Vaccine, age 6 months and up Unknown Completed Radha Anybold - External Influenza Virus Vaccine, age 6 months and up Unknown Completed Radha Anybold - External Shingles SQ (Zostavax) Unknown Completed Radha Seybold - External Influenza Virus Vaccine, age 6 months and up Unknown Completed Radha Seybold - External Pneumococcal Vaccine, Polysaccharide Unknown Completed Radha ybol d - External Influenza Virus Vaccine, age 6 months and up Unknown Completed Radha Seybold - External Pneumococcal Vaccine, Conjugate 13 Unknown Completed Radha Seybold - External Influenza Virus Vaccine, age 6 months and up Unknown Completed Radha Seybold - External Influenza Virus Vaccine, age 6 months and up Unknown Completed Radha Seybold - External Influenza Virus Vaccine, High Dose, Age 65 And Up Unknown Completed Radha Seybold - External Influenza Virus Vaccine, High Dose, Age 65 And Up Unknown Completed Radha Anybold - External Tdap- (Boostrix, Adacel) Unknown Completed Radha Seybold - External Influenza Virus Vaccine, High Dose, Age 65 And Up Unknown Completed Radha Seybold - External Pneumococcal Vaccine, Conjugate 13 Unknown Completed Radha Seybold - External Influenza Virus Vaccine, Quadrivalent, High Dose, Age 65 And Up Unknown Completed Radha Strickland eybold - External Covid-19 Vaccine (Fitbit), Mrna-lnp, Felix Protein, Pf, 30mcg/0.3ml,IM Unknown Completed Radha Anybol d - External Covid-19 Vaccine (Fitbit), Mrna-lnp, Felix Protein, Pf, 30mcg/0.3ml,IM Unknown Completed Radha Dizko Samuraiol d - External Covid-19 Vaccine (Fitbit), Mrna-lnp, Felix Protein, Pf, 30mcg/0.3ml,IM Unknown Completed Radha Seybol d - External Influenza Virus Vaccine, Quadrivalent, High Dose, Age 65 And Up Unknown Completed Radha Strickland eybold - External Shingles IM (Shingrix) Unknown [facility] Unknown Completed Radha Seybold - External Influenza Virus Vaccine, Quadrivalent, High Dose, Age 65 And Up Unknown Completed Radha Strickland eybold - External COVID-19 Bivalent vaccine PFIZER 12+ Unknown Completed Radha Se ybold - External Influenza vaccine, quadrivalent, adjuvanted, 65+ Unknown Completed Radha Anybo ld - External Pneumococcal Vaccine, Polysaccharide Unknown Completed Radha Seybol d - External Influenza Virus Vaccine, age 6 months and up Unknown [facility] Tdap- (Boostrix, Adacel) Unknown Completed Radha Seybold - External [id number] Unknown Completed Radha Any bold - External Influenza Virus Vaccine, age 6 months and up Unknown Completed Radha Seybold - External Influenza Virus Vaccine, age 6 months and up Unknown Completed Radha Seybold - External Influenza Virus Vaccine, age 6 months and up Unknown Completed Radha Seybold - External Shingles SQ (Zostavax) Unknown Completed Radha Seybold - External Influenza Virus Vaccine, age 6 months and up Unknown Completed Radha Seybold - External Pneumococcal Vaccine, Polysaccharide Unknown Completed Radha Seybol d - External Influenza Virus Vaccine, age 6 months and up Unknown Completed Radha Seybold - External Pneumococcal Vaccine, Conjugate 13 Unknown Completed Radha Seybold - External Influenza Virus Vaccine, age 6 months and up Unknown Completed Radha Seybold - External Influenza Virus Vaccine, age 6 months and up Unknown Completed Radha Seybold - External Influenza Virus Vaccine, High Dose, Age 65 And Up Unknown Completed Radha Seybold - External Influenza Virus Vaccine, High Dose, Age 65 And Up Unknown Completed Radha Seybold - External Tdap- (Boostrix, Adacel) Unknown Completed Radha Seybold - External Influenza Virus Vaccine, High Dose, Age 65 And Up Unknown Completed Radha Seybold - External Pneumococcal Vaccine, Conjugate 13 Unknown Completed Radha Seybold - External Influenza Virus Vaccine, Quadrivalent, High Dose, Age 65 And Up Unknown Completed Radha Strickland eybold - External Covid-19 Vaccine (Pfizer), Mrna-lnp, Felix Protein, Pf, 30mcg/0.3ml,IM Unknown Completed Radha Seybol d - External Covid-19 Vaccine (Pfizer), Mrna-lnp, Felix Protein, Pf, 30mcg/0.3ml,IM Unknown Completed Radha ybol d - External Covid-19 Vaccine (Fitbit), Mrna-lnp, Felix Protein, Pf, 30mcg/0.3ml,IM Unknown Completed Radha Seybol d - External Influenza Virus Vaccine, Quadrivalent, High Dose, Age 65 And Up Unknown Completed Radha Strickland eybold - External Shingles IM (Shingrix) Unknown Completed Radha Seybold - External Shingles IM (Shingrix) Unknown Completed Radha ybold - External Influenza Virus Vaccine, Quadrivalent, High Dose, Age 65 And Up Unknown Completed Radha Strickland eybold - External COVID-19 Bivalent vaccine PFIZER 12+ Unknown Completed Radha Se ybold - External Influenza vaccine, quadrivalent, adjuvanted, 65+ Unknown Completed Radha Anybo ld - External Pneumococcal Vaccine, Polysaccharide Unknown Completed Radha ybol d - External Influenza Virus Vaccine, age 6 months and up Unknown Completed Radha ybold - External Tdap- (Boostrix, Adacel) Unknown Completed Radha ybold - External [id number] Unknown Completed Radha Any bold - External Influenza Virus Vaccine, age 6 months and up Unknown Completed Radha Seybold - External Influenza Virus Vaccine, age 6 months and up Unknown Completed Radha Seybold - External Influenza Virus Vaccine, age 6 months and up Unknown Completed Radha ybold - External Shingles SQ (Zostavax) Unknown Completed Radha Seybold - External Influenza Virus Vaccine, age 6 months and up Unknown Completed Radha Seybold - External Pneumococcal Vaccine, Polysaccharide Unknown Completed Radha Seybol d - External Influenza Virus Vaccine, age 6 months and up Unknown Completed Radha Seybold - External Pneumococcal Vaccine, Conjugate 13 Unknown Completed Radha Seybold - External Influenza Virus Vaccine, age 6 months and up Unknown Completed Radha Seybold - External Influenza Virus Vaccine, age 6 months and up Unknown Completed Radha Seybold - External Influenza Virus Vaccine, High Dose, Age 65 And Up Unknown Completed Radha Seybold - External Influenza Virus Vaccine, High Dose, Age 65 And Up Unknown Completed Radha Anybold - External Tdap- (Boostrix, Adacel) Unknown Completed Radha Seybold - External Influenza Virus Vaccine, High Dose, Age 65 And Up Unknown Completed Radha Seybold - External Pneumococcal Vaccine, Conjugate 13 Unknown Completed Radha Seybold - External Influenza Virus Vaccine, Quadrivalent, High Dose, Age 65 And Up Unknown Completed Radha Strickland eybold - External Covid-19 Vaccine (Fitbit), Mrna-lnp, Felix Protein, Pf, 30mcg/0.3ml,IM Unknown Completed Radha Anybol d - External Covid-19 Vaccine (Fitbit), Mrna-lnp, Felix Protein, Pf, 30mcg/0.3ml,IM Unknown Completed Radha Beckol d - External Covid-19 Vaccine (Fitbit), Mrna-lnp, Felix Protein, Pf, 30mcg/0.3ml,IM Unknown Completed Radha Beckol d - External Influenza Virus Vaccine, Quadrivalent, High Dose, Age 65 And Up Unknown Completed Radha Strickland eybold - External Shingles IM (Shingrix) Unknown Completed Radha Seybold - External Shingles IM (Shingrix) Unknown Completed Radha Anybold - External Influenza Virus Vaccine, Quadrivalent, High Dose, Age 65 And Up Unknown Completed Radha Strickland eybold - External COVID-19 Bivalent vaccine PFIZER 12+ Unknown Completed Radha nA ybold - External Influenza vaccine, quadrivalent, adjuvanted, 65+ Unknown Completed Radha Becko ld - External Pneumococcal Vaccine, Polysaccharide Unknown Completed Radha Beckol d - External Influenza Virus Vaccine, age 6 months and up Unknown Completed Radha Anybold - External Tdap- (Boostrix, Adacel) Unknown Completed Radha Anybold - External [id number] Unknown Completed Radha Any bold - External Influenza Virus Vaccine, age 6 months and up Unknown Completed Radha Seybold - External Influenza Virus Vaccine, age 6 months and up Unknown Completed Radha Seybold - External Influenza Virus Vaccine, age 6 months and up Unknown Completed Radha Anybold - External Shingles SQ (Zostavax) Unknown Completed Radha Anybold - External Influenza Virus Vaccine, age 6 months and up Unknown Completed Radha Seybold - External Pneumococcal Vaccine, Polysaccharide Unknown Completed Radha Anybol d - External Influenza Virus Vaccine, age 6 months and up Unknown Completed Radha Anybold - External Pneumococcal Vaccine, Conjugate 13 Unknown Completed Radha Seybold - External Influenza Virus Vaccine, age 6 months and up Unknown Completed Radha Seybold - External Influenza Virus Vaccine, age 6 months and up Unknown Completed Radha Seybold - External Influenza Virus Vaccine, High Dose, Age 65 And Up Unknown Completed Radha Seybold - External Influenza Virus Vaccine, High Dose, Age 65 And Up Unknown Completed Radha ybold - External Tdap- (Boostrix, Adacel) Unknown Completed Radha Seybold - External Influenza Virus Vaccine, High Dose, Age 65 And Up Unknown Completed Radha Seybold - External Pneumococcal Vaccine, Conjugate 13 Unknown Completed Radha Anybold - External Influenza Virus Vaccine, Quadrivalent, High Dose, Age 65 And Up Unknown Completed Radha Strickland eybold - External Covid-19 Vaccine (Fitbit), Mrna-lnp, Felix Protein, Pf, 30mcg/0.3ml,IM Unknown Completed Radha Seybol d - External Covid-19 Vaccine (Pfizer), Mrna-lnp, Felix Protein, Pf, 30mcg/0.3ml,IM Unknown Completed Radha ybol d - External Covid-19 Vaccine (Fitbit), Mrna-lnp, Felix Protein, Pf, 30mcg/0.3ml,IM Unknown Completed Radha ybol d - External Influenza Virus Vaccine, Quadrivalent, High Dose, Age 65 And Up Unknown Completed Radha Strickland eybold - External Shingles IM (Shingrix) Unknown Completed Radha ybold - External Shingles IM (Shingrix) Unknown Completed Radha Seybold - External Influenza Virus Vaccine, Quadrivalent, High Dose, Age 65 And Up Unknown Completed [facility] eybold - External COVID-19 Bivalent vaccine PFIZER 12+ Unknown Completed Radha Se ybold - External Influenza vaccine, quadrivalent, adjuvanted, 65+ Unknown Completed Radha Becko ld - External Pneumococcal Vaccine, Polysaccharide Unknown Completed Radha Seybol d - External Influenza Virus Vaccine, age 6 months and up Unknown Completed Radha ybold - External Tdap- (Boostrix, Adacel) Unknown Completed Radha ybold - External [id number] Unknown Completed Radha Any bold - External Influenza Virus Vaccine, age 6 months and up Unknown Completed Radha Anybold - External Influenza Virus Vaccine, age 6 months and up Unknown Completed Radha Anybold - External Influenza Virus Vaccine, age 6 months and up Unknown Completed Radha Anybold - External Shingles SQ (Zostavax) Unknown Completed Radha Anybold - External Influenza Virus Vaccine, age 6 months and up Unknown Completed Radha Beckold - External Pneumococcal Vaccine, Polysaccharide Unknown Completed Radha Beckol d - External Influenza Virus Vaccine, age 6 months and up Unknown Completed Radha Anybold - External Pneumococcal Vaccine, Conjugate 13 Unknown Completed Radha Seybold - External Influenza Virus Vaccine, age 6 months and up Unknown Completed Radha Anybold - External Influenza Virus Vaccine, age 6 months and up Unknown Completed Radha Seybold - External Influenza Virus Vaccine, High Dose, Age 65 And Up Unknown Completed Radha Seybold - External Influenza Virus Vaccine, High Dose, Age 65 And Up Unknown Completed [facility] - External Tdap- (Boostrix, Adacel) Unknown Completed Radha Anybold - External Influenza Virus Vaccine, High Dose, Age 65 And Up Unknown Completed Radha Seold - External Pneumococcal Vaccine, Conjugate 13 Unknown Completed Radha Beckold - External Influenza Virus Vaccine, Quadrivalent, High Dose, Age 65 And Up Unknown Completed Radha Strickland eybold - External Covid-19 Vaccine (Fitbit), Mrna-lnp, Felix Protein, Pf, 30mcg/0.3ml,IM Unknown Completed Radha Beckol d - External Covid-19 Vaccine (Fitbit), Mrna-lnp, Felix Protein, Pf, 30mcg/0.3ml,IM Unknown Completed Radha Seol d - External Covid-19 Vaccine (Fitbit), Mrna-lnp, Felix Protein, Pf, 30mcg/0.3ml,IM Unknown Completed Radha Beckol d - External Influenza Virus Vaccine, Quadrivalent, High Dose, Age 65 And Up Unknown Completed Radha Strickland eybold - External Shingles IM (Shingrix) Unknown Completed Radha Beckold - External Shingles IM (Shingrix) Unknown Completed Radha Anold - External Influenza Virus Vaccine, Quadrivalent, High Dose, Age 65 And Up Unknown Completed Radha S eybold - External COVID-19 Bivalent vaccine PFIZER 12+ Unknown Completed Radha Se ybold - External Influenza vaccine, quadrivalent, adjuvanted, 65+ Unknown Completed Radha Becko ld - External Pneumococcal Vaccine, Polysaccharide Unknown Completed Radha Seybol d - External Influenza Virus Vaccine, age 6 months and up Unknown Completed Radha Seybold - External Tdap- (Boostrix, Adacel) Unknown Completed Radha Anybold - External [id number] Unknown Completed Radha Any bold - External Influenza Virus Vaccine, age 6 months and up Unknown Completed Radha Seybold - External Influenza Virus Vaccine, age 6 months and up Unknown Completed Radha Seybold - External Influenza Virus Vaccine, age 6 months and up Unknown Completed Radha Anybold - External Shingles SQ (Zostavax) Unknown Completed Radha Seybold - External Influenza Virus Vaccine, age 6 months and up Unknown Completed Radha Seybold - External Pneumococcal Vaccine, Polysaccharide Unknown Completed Radha Seybol d - External Influenza Virus Vaccine, age 6 months and up Unknown Completed Radha Seybold - External Pneumococcal Vaccine, Conjugate 13 Unknown Completed Radha Seybold - External Influenza Virus Vaccine, age 6 months and up Unknown Completed Radha Seybold - External Influenza Virus Vaccine, age 6 months and up Unknown Completed Radha Seybold - External Influenza Virus Vaccine, High Dose, Age 65 And Up Unknown Completed Radha Seybold - External Influenza Virus Vaccine, High Dose, Age 65 And Up Unknown Completed Radha Anybold - External Tdap- (Boostrix, Adacel) Unknown Completed Radha Seybold - External Influenza Virus Vaccine, High Dose, Age 65 And Up Unknown Completed Radha Seybold - External Pneumococcal Vaccine, Conjugate 13 Unknown Completed Radha Seybold - External Influenza Virus Vaccine, Quadrivalent, High Dose, Age 65 And Up Unknown Completed Radha Strickland eybold - External Covid-19 Vaccine (Fitbit), Mrna-lnp, Felix Protein, Pf, 30mcg/0.3ml,IM Unknown Completed Radha Seybol d - External Covid-19 Vaccine (Fitbit), Mrna-lnp, Felix Protein, Pf, 30mcg/0.3ml,IM Unknown Completed Radha Seybol d - External Covid-19 Vaccine (Fitbit), Mrna-lnp, Felix Protein, Pf, 30mcg/0.3ml,IM Unknown Completed Radha Seybol d - External Influenza Virus Vaccine, Quadrivalent, High Dose, Age 65 And Up Unknown Completed Radha Strickland eybold - External Shingles IM (Shingrix) Unknown Completed Radha Seybold - External Shingles IM (Shingrix) Unknown Completed Radha Seybold - External Influenza Virus Vaccine, Quadrivalent, High Dose, Age 65 And Up Unknown Completed Radha Strickland eybold - External COVID-19 Bivalent vaccine PFIZER 12+ Unknown Completed Radha Se ybold - External Influenza vaccine, quadrivalent, adjuvanted, 65+ Unknown Completed Radha Anybo ld - External RSV, Abrysvo Unknown Completed Radha Seybold - External Pneumococcal Vaccine, Polysaccharide Unknown Completed Radha Seybol d - External Influenza Virus Vaccine, age 6 months and up Unknown [facility] Tdap- (Boostrix, Adacel) Unknown Completed Radha Seybold - External T0O5-DX Unknown Completed Radha Any bold - External Influenza Virus Vaccine, age 6 months and up Unknown Completed Radha Seybold - External Influenza Virus Vaccine, age 6 months and up Unknown Completed Radha Seybold - External Influenza Virus Vaccine, age 6 months and up Unknown Completed Radha Seybold - External Shingles SQ (Zostavax) Unknown Completed Radha Seybold - External Influenza Virus Vaccine, age 6 months and up Unknown Completed Radha Seybold - External Pneumococcal Vaccine, Polysaccharide Unknown Completed Radha Seybol d - External Influenza Virus Vaccine, age 6 months and up Unknown Completed Radha Seybold - External Pneumococcal Vaccine, Conjugate 13 Unknown Completed Radha Seybold - External Influenza Virus Vaccine, age 6 months and up Unknown Completed Radha Seybold - External Influenza Virus Vaccine, age 6 months and up Unknown Completed Radha Seybold - External Influenza Virus Vaccine, High Dose, Age 65 And Up Unknown Completed Radha Seybold - External Influenza Virus Vaccine, High Dose, Age 65 And Up Unknown Completed Radha Seybold - External Tdap- (Boostrix, Adacel) Unknown Completed Radha Seybold - External Influenza Virus Vaccine, High Dose, Age 65 And Up Unknown Completed Radha Seybold - External Pneumococcal Vaccine, Conjugate 13 Unknown Completed Radha Seybold - External Influenza Virus Vaccine, Quadrivalent, High Dose, Age 65 And Up Unknown Completed [facility] eybold - External Covid-19 Vaccine (Pfizer), Mrna-lnp, Felix Protein, Pf, 30mcg/0.3ml,IM Unknown Completed Radha Beckol d - External Covid-19 Vaccine (Fitbit), Mrna-lnp, Felix Protein, Pf, 30mcg/0.3ml,IM Unknown Completed Radha Beckol d - External Covid-19 Vaccine (Fitbit), Mrna-lnp, Felix Protein, Pf, 30mcg/0.3ml,IM Unknown Completed Radhacait Beckol d - External Influenza Virus Vaccine, Quadrivalent, High Dose, Age 65 And Up Unknown Completed Radha Strickland eybold - External Shingles IM (Shingrix) Unknown Completed Radha Anybold - External Shingles IM (Shingrix) Unknown Completed Radha Seybold - External Influenza Virus Vaccine, Quadrivalent, High Dose, Age 65 And Up Unknown Completed Radha Strickland eybold - External COVID-19 Bivalent vaccine PFIZER 12+ Unknown Completed Radha ybold - External Influenza vaccine, quadrivalent, adjuvanted, 65+ Unknown Completed Radha premo ld - External RSV, Abrysvo Unknown Completed Radha Anybold - External Vital Signs Vital Name Observation Time Observation Value Comments S ource Body weight 2023-03-13 15:46:00 75.751 kg Nori elizondo Seybold - External BMI 2023-03-13 15:46:00 30.54 kg/m2 Nori elizondo Seybold - External Systolic blood pressure 2022-12-27 15:16:00 160 mm[Hg] Radhacait Becko ld - External Diastolic blood pressure 2022-12-27 15:16:00 84 mm[Hg] Radhacait Becko ld - External Heart rate 2022-12-27 15:03:00 68 /min Rodrigue chavez Seybold - External Body temperature 2022-12-27 15:03:00 36.28 Magalie Radha Anybold - External Respiratory rate 2022-12-27 15:03:00 16 /min Radha Beckold - External Body height 2022-12-27 15:03:00 157.5 cm Nori elizondo Seybold - External Body weight 2022-12-27 15:03:00 73.664 kg Nori ey Seybold - External BMI 2022-12-27 15:03:00 29.70 kg/m2 Nori ey Seybold - External Systolic blood pressure 2022-08-15 14:47:00 166 mm[Hg] Radha Seybo ld - External Diastolic blood pressure 2022-08-15 14:47:00 86 mm[Hg] Radha Seybo ld - External Heart rate 2022-08-15 14:47:00 70 /min Kelse y Seybold - External Body temperature 2022-08-15 14:47:00 36.72 Magalie Radha Seybold - External Respiratory rate 2022-08-15 14:47:00 16 /min Radha Seybold - External Body height 2022-08-15 14:47:00 157.5 cm Nori ey Seybold - External Body weight 2022-08-15 14:47:00 77.565 kg Nori ey Seybold - External BMI 2022-08-15 14:47:00 31.28 kg/m2 Nori ey Seybold - External Oxygen saturation in Arterial blood by Pulse oximetry 2022-08-15 14:47:00 98 /min Radha Seybo ld - External Systolic blood pressure 2021-12-27 14:37:00 128 mm[Hg] Radha Seybo ld - External Diastolic blood pressure 2021-12-27 14:37:00 70 mm[Hg] Radha Seybo ld - External Heart rate 2021-12-27 14:37:00 64 /min Scottse y Seybold - External Body temperature 2021-12-27 14:37:00 36.39 Magalie Radha Seybold - External Respiratory rate 2021-12-27 14:37:00 16 /min Radha Seybold - External Body height 2021-12-27 14:37:00 157.5 cm Nori ey Seybold - External Body weight 2021-12-27 14:37:00 77.202 kg Nori ey Seybold - External BMI 2021-12-27 14:37:00 31.13 kg/m2 Nori ey Seybold - External Systolic blood pressure 2021-08-16 15:05:00 154 mm[Hg] Radha Seybo ld Diastolic blood pressure 2021-08-16 15:05:00 79 mm[Hg] Radha Seybo ld Heart rate 2021-08-16 15:05:00 77 /min Kelse y Seybold Body temperature 2021-08-16 15:05:00 36.56 Magalie Radha Seybold Respiratory rate 2021-08-16 15:05:00 16 /min Radha Seybold Body height 2021-08-16 15:05:00 157.5 cm Nori ey Seybold Body weight 2021-08-16 15:05:00 79.379 kg Nori ey Seybold BMI 2021-08-16 15:05:00 32.01 kg/m2 Nori ey Seybold Systolic blood pressure 2021-06-27 15:10:00 158 mm[Hg] Radha Seybo ld Diastolic blood pressure 2021-06-27 15:10:00 76 mm[Hg] Radha Seybo ld Heart rate 2021-06-27 15:10:00 79 /min Kelse y Seybold Respiratory rate 2021-06-27 15:10:00 12 /min Radha Seybold Body height 2021-06-27 15:10:00 157.5 cm Nori ey Seybold Body weight 2021-06-27 15:10:00 76.703 kg Nori ey Seybold BMI 2021-06-27 15:10:00 30.93 kg/m2 Nori ey Seybold Systolic blood pressure 2021-03-17 21:50:00 136 mm[Hg] Radha Seybo ld Diastolic blood pressure 2021-03-17 21:50:00 70 mm[Hg] Radha Seybo ld Heart rate 2021-03-17 21:50:00 74 /min Kelse y Seybold Body temperature 2021-03-17 21:50:00 36.22 Magalie Radha Seybold Respiratory rate 2021-03-17 21:50:00 18 /min Radha Seybold Body height 2021-03-17 21:50:00 157.5 cm Nori ey Seybold Body weight 2021-03-17 21:50:00 75.841 kg Nori ey Seybold BMI 2021-03-17 21:50:00 30.58 kg/m2 Nori ey Seybold Systolic blood pressure 2021-03-16 19:55:00 130 mm[Hg] Radha Seybo ld Diastolic blood pressure 2021-03-16 19:55:00 78 mm[Hg] Radha Seybo ld Heart rate 2021-03-16 19:55:00 82 /min Kelse y Seybold Body temperature 2021-03-16 19:55:00 36.44 Magalie Radha Seybold Respiratory rate 2021-03-16 19:55:00 14 /min Radha Seybold Body height 2021-03-16 19:55:00 157.5 cm Nori ey Seybold Body weight 2021-03-16 19:55:00 76.114 kg Nori ey Seybold BMI 2021-03-16 19:55:00 30.69 kg/m2 Nori ey Seybold Systolic blood pressure 2021-03-10 19:18:00 132 mm[Hg] Radha Seybo ld Diastolic blood pressure 2021-03-10 19:18:00 72 mm[Hg] Radha Seybo ld Heart rate 2021-03-10 18:59:00 68 /min Kelse y Seybold Body temperature 2021-03-10 18:59:00 36.78 Magalie Radha Seybold Respiratory rate 2021-03-10 18:59:00 16 /min Radha Seybold Body height 2021-03-10 18:59:00 157.5 cm Nori ey Seybold Body weight 2021-03-10 18:59:00 77.565 kg Nori ey Seybold BMI 2021-03-10 18:59:00 31.28 kg/m2 Nori ey Seybold Oxygen saturation in Arterial blood by Pulse oximetry 2021-03-10 18:59:00 97 /min Radha Seybo ld Procedures Procedure Date / Time Performed Performing Clinicia n Source [facility] 2021-12-27 15:15:04 Master Rice geovanny - External Encounters Start Date/Time End Date/Time Encounter Type Admission Type Attending [facility] Care Department Encounter ID Source 2023-08-21 10:00:00 2023-08-21 10:00:00 Outpatient ADELA GOLDEN [id number] Radha Simental 2023-08-14 10:00:00 2023-08-14 10:00:00 Outpatient ADELA GOLDEN [facility] [id number] [facility]-07-04 10:30:00 2023-07-04 10:30:00 Outpatient MASTER RICE RADHA GARCIA [id number] Radha Seybold 2023-07-03 15:00:00 2023-07-03 15:00:00 [facility]patient [facility] [id number] [facility] 2023-06-20 16:00:00 2023-06-20 16:00:00 Outpatient JUSTEN CELESTE RADHA GARCIA [id number] [facility] 2023-06-08 16:00:00 2023-06-08 16:00:00 Outpatient JUSTEN CELESTE RADHA GARCIA [id number] [facility] 2023-05-16 00:00:00 2023-05-16 00:00:00 Outpatient MASTER RICE RADHA GARCIA [id number] [facility] 2023-05-01 00:00:00 2023-05-01 00:00:00 Outpatient MASTER RICE RADHA GARCIA [id number] [facility] 2023-04-16 16:00:00 2023-04-16 16:00:00 Outpatient JUSTEN CELESTE RADHA GARC[facility] [id number] [facility] 2023-04-15 00:00:00 2023-04-15 00:00:00 Outpatient MASTER RICE RADHA GARCIA [id number] [facility] 2023-03-13 09:30:00 2023-03-13 09:30:00 Outpatient VIDA ADAMSLY RADHA GARCIA [id number] Radha Seybold 2023-03-13 00:00:00 2023-03-13 00:00:00 Outpatient WANDER HERNANDEZ [id number] Radha Seybold 2023-03-13 00:00:00 2023-03-13 00:00:00 Outpatient JANNETTE MASTER GARCIA [id number] Radha Seybold 2023-03-12 08:00:00 2023-03-12 08:00:00 Outpatient JUSTEN CELESTE RADHA GARCIA [id number] Radha Seybold 2023-02-20 10:00:00 2023-02-20 10:00:00 Outpatient EMMANUEL CELESTEMario GARCIA [id number] Radha Seybold 2023-01-29 13:40:00 2023-01-29 13:40:00 Outpatient ALIYAH SALINAS [id number] Radha Seybold 2023-01-24 10:00:00 2023-01-24 10:00:00 Outpatient YOU Renae [id number] Radha Seybold 2023-01-24 09:40:00 2023-01-24 09:40:00 Outpatient ALIYAH SALINAS [id number] [facility] 2023-01-18 00:00:00 2023-01-18 00:00:00 Outpatient MASTER RICE [id number] [facility] 2023-01-10 00:00:00 2023-01-10 00:00:00 Outpatient MASTER RICE [id number] [facility] 2023-01-09 13:45:00 2023-01-09 13:45:00 Outpatient MELISSA ADAMS [id number] [facility] 2022-12-28 00:00:00 2022-12-28 00:00:00 Outpatient ROULA JUSTEN GARCIA [id number] [facility] 2022-12-28 00:00:00 2022-12-28 00:00:00 Outpatient MD RADHA OVALLE [id number] Radha Seybold 2022-12-27 11:30:00 2022-12-27 11:30:00 Outpatient MARGI GARCIA [id number] Radha Seybold 2022-12-27 10:30:00 2022-12-27 10:30:00 Outpatient MASTER RICE [id number] Radah Seybold 2022-12-27 00:00:00 2022-12-27 00:00:00 Outpatient PINA GONZALES [id number] [facility] 2022-12-27 00:00:00 2022-12-27 00:00:00 Outpatient MASTER RICE [id number] [facility] 2022-11-29 13:00:00 2022-11-29 13:00:00 Outpatient ALIYAH SALINAS [id number] [facility] 2022-11-09 14:40:00 2022-11-09 14:40:00 Outpatient ERNESTOVIKTOR [id number] [facility] 2022-10-26 14:55:00 2022-10-26 14:55:00 Outpatient RADHA GARCIA [id number] [facility] 2022-10-26 14:20:00 2022-10-26 14:20:00 Outpatient ERNESTOVIKTOR [id number] [facility] 2022-10-24 00:00:00 2022-10-24 00:00:00 Outpatient VIKTOR OROZCO [id number] [facility] 2022-10-09 00:00:00 2022-10-09 00:00:00 Outpatient MASTER RICE [id number] [facility] 2022-09-27 10:45:00 2022-09-27 10:45:00 Outpatient MELISSA ADAMS [id number] [facility] 2022-09-25 00:00:00 2022-09-25 00:00:00 Outpatient ADELA GOLDEN [id number] [facility] 2022-09-14 08:15:00 2022-09-14 08:15:00 Outpatient MASTER RICE [id number] [facility] 2022-09-07 00:00:00 2022-09-07 00:00:00 Outpatient WINSOME GARCIA [id number] [facility] 2022-09-07 00:00:00 2022-09-07 00:00:00 Outpatient MASTER RICE [id number] Radha Seybold 2022-08-15 10:30:00 2022-08-15 10:30:00 Outpatient LAB47 RADHA GARCIA [id number] Radha Seybantonina 2022-08-15 10:00:00 2022-08-15 10:00:00 Outpatient ADELA GOLDEN RADHA GARCIA [id number] Radha Seybantonina 2022-06-29 08:45:00 2022-06-29 08:45:00 Outpatient LAB90 RADHA GARCIA [id number] Radha Seybold 2022-06-28 10:30:00 2022-06-28 10:30:00 Outpatient JANNETTE MASTER GARCIA [id number] Radha Seybold 2022-04-11 14:20:00 2022-04-11 14:20:00 Outpatient ALIYAH SALINAS [id number] [facility] 2022-04-10 11:00:00 2022-04-10 11:00:00 Outpatient TY GUERRERO [id number] [facility] 2022-03-31 00:00:00 2022-03-31 00:00:00 Outpatient JANNETTE, MASTERLYDIA GARCIA [id number] [facility] 2022-03-24 00:00:00 2022-03-24 00:00:00 Outpatient AGA, MASTERHolden GARCIA [id number] [facility] 2021-12-27 11:25:00 2021-12-27 11:25:00 Outpatient LAB39 RADHA GARCIA [id number] Radha Seybold 2021-12-27 11:00:00 2021-12-27 11:00:00 Outpatient COVID-PFIZE R MADDIE AHUJA [id number] Radha Seybold 2021-12-27 10:00:00 2021-12-27 10:00:00 Outpatient AGA, MASTER GARCIA [id number] Radha Seybold 2021-12-22 09:30:00 2021-12-22 09:30:00 Outpatient AGA, MASTER GARCIA [id number] Radha Seybold 2021-08-16 11:00:00 2021-08-16 11:00:00 Outpatient LAB47 RADHA RADHA [id number] Radha Anantonina 2021-08-16 10:30:00 2021-08-16 10:45:00 Office Visit Adela Golden ERI 1.2.840.114 350.1.13.13 [id number] [id number] Radha Anybantonina 2021-07-25 00:00:00 2021-07-25 00:00:00 Outpatient MASTER RICE RADHA GARCIA [id number] Radha Seybantonina 2021-07-04 09:20:00 2021-07-04 09:20:00 Outpatient LAB39 RADHA GARCIA [id number] Radha Anybantonina 2021-06-28 09:30:00 2021-06-28 09:30:00 Outpatient CHINTAN RICELYDIA GARCIA [id number] Radha Seybantonina 2021-06-28 00:00:00 2021-06-28 00:00:00 Outpatient ANGIEMELISSA MILLER RADHA GARCIA [id number] [facility] 2021-06-27 10:00:00 2021-06-27 10:26:10 [facility] 1.2.840.114 350.1.13.13 [id number] [id number] Radha Seybantonina 2021-06-27 09:45:00 2021-06-27 09:45:00 Outpatient CHINTAN RICELYDIA GARCIA [id number] [facility] 2021-05-11 10:00:00 2021-05-11 10:00:00 Outpatient RADHA GARCIA [id number] Radha Seybantonina 2021-05-11 00:00:00 2021-05-11 00:00:00 Outpatient WANDER HERNANDEZ [id number] Radha Seybold 2021-05-10 00:00:00 2021-05-10 00:00:00 Outpatient JANNETTE MASTER GARCIA [id number] [facility] 2021-04-11 11:30:00 2021-04-11 11:30:00 Outpatient YOU Renae RADHA RADHA [id number] Radha Simental 2021-04-11 11:15:00 2021-04-11 11:15:00 Office Visit JAZMYN GARCIA [facility] 1.2.840.114 350.1.13.13 1.2.7.2.686 [id number] Radha Kamille 2021-04-10 00:00:00 2021-04-10 00:00:00 Outpatient MASTER RICE RADHA GARCIA [id number] Radha Kamille 2021-03-25 10:00:00 2021-03-25 10:00:00 Outpatient RADHA GARCIA [id number] Radha Kamille 2021-03-24 00:00:00 2021-03-24 00:00:00 Outpatient MARY ELLENNancy AUGUSTINE GARCIA [id number] Radha Kamille 2021-03-22 00:00:00 2021-03-22 00:00:00 Outpatient MARY ELLENNancy AUGUSTINE GARCIA [id number] Radha Simental 2021-03-17 16:30:00 2021-03-17 16:30:00 Office Visit TRISTEN STOVALL [facility] 1.2.840.114 350.1.13.13 1.2.7.2.686 [id number] Radha Kamille 2021-03-16 15:15:00 2021-03-16 15:15:00 Outpatient LABMichael RADHA GARCIA [id number] Radha Simental 2021-03-16 14:00:00 2021-03-16 15:00:00 Office Visit Mary EllenAugustine cruz Manjeet Benites 1.2.840.114 350.1.13.13 1.2.7.2.686 [id number] Radha Kamille 2021-03-16 10:40:00 2021-03-16 10:40:00 Outpatient RADHA GARCIA [id number] Radha premantonina 2021-03-14 00:00:00 2021-03-14 00:00:00 Outpatient MASTER RICE RADHA [id number] [facility]ha [facility] 2021-03-11 11:30:00 2021-03-11 11:30:00 Outpatient RADHA RADHA [id number] Radha Anantonina 2021-03-11 09:00:00 2021-03-11 09:00:00 Outpatient RADHA GARCIA [id number] Radha [facility] 2021-03-11 00:00:00 2021-03-11 00:00:00 Outpatient MASTER RICE RADHA GARCIA [id number] Radha [facility] 2021-03-11 00:00:00 2021-03-11 00:00:00 Outpatient SANTY JEAN RADHA GARCIA [id number] [facility]ha [facility] 2021-03-10 14:05:00 2021-03-10 14:05:00 Outpatient RADHA GARCIA [id number] Radha [facility] 2021-03-10 14:00:00 2021-03-10 14:00:00 Outpatient LAB39 RADHA RADHA [id number] Radha [facility] 2021-03-10 13:00:00 2021-03-10 13:30:00 Office Visit ToddMikaelharvey Espino [facility] 1.2.840.114 350.1.13.13 1.2.7.2.686 [id number] Radha [facility] 2021-03-10 11:30:00 2021-03-10 11:30:00 Outpatient LAB39 RADHA RADHA [id number] [facility] 2021-03-10 11:00:00 2021-03-10 11:15:00 Office Visit Radha Jazmyn Gonzales [facility] 1.2.840.114 350.1.13.13 1.2.7.2.686 [id number] Radha [facility] 2021-03-10 10:15:00 2021-03-10 10:15:00 Telemedici mikael MASTER RICE Jackson 1.2.840.114 350.1.13.13 1.2.7.2.686 [id number] Radha [facility] 2021-03-09 09:30:00 2021-03-09 09:30:00 Outpatient JAZMYN GARCIA RADHA GARCIA [id number] Radha Simental 2021-03-04 11:05:00 2021-03-04 11:05:00 Outpatient [facility], [address] RADHA GARCIA [id number] Radha Kamille 2021-03-04 10:40:00 2021-03-04 10:40:00 Outpatient SWAB, ARIE GARCIA [id number] Radha Kamille 2021-03-01 13:00:00 2021-03-01 13:15:00 Office Visit Jazmyn Garcia [facility] 1.2.840.114 350.1.13.13 1.2.7.2.686 [id number] Radha Simental 2021-02-25 00:00:00 2021-02-25 00:00:00 Outpatient MASTER RICE [id number] Radha Simental 2021-02-24 10:15:00 2021-02-24 10:30:00 Office Visit Jazmyn Garcia [facility] 1.2.840.114 350.1.13.13 1.2.7.2.686 [id number] Radha Simental 2021-02-23 07:00:00 2021-02-23 07:00:00 Outpatient JAZMYN GARCIA [id number] Radha Kamille 2021-02-18 10:45:00 2021-02-18 10:45:00 Outpatient [place], [address] RADHA GARCIA [id number] Radhacait Simental 2021-02-18 10:20:00 2021-02-18 10:20:00 Outpatient SWAB, ARIE GARCIA [id number] Radha Kamille 2021-02-15 14:00:00 2021-02-15 14:00:00 Outpatient TOMOGRAPHY, TA RADHA GARCIA [id number] Radha Kamille 2021-02-15 12:58:41 2021-02-15 13:13:41 Office Visit Jazmyn GarciaOO D 1.2.840.114 350.1.13.13 1.2.7.2.686 [id number] Radha Simental 2021-01-27 09:00:00 2021-01-27 09:00:00 Outpatient JAZMYN GARCIA RADHA GARCIA [id number] Radha Anantonina 2021-01-24 11:30:00 2021-01-24 11:30:00 Outpatient MAC, EKG- RADHA GARCIA [id number] [facility] 2021-01-24 10:00:40 2021-01-24 10:15:40 Office Visit Jazmyn Garcia [facility] 1.2.840.114 350.1.13.13 1.2.7.2.686 [id number] Radha Kiranantonina 2021-01-03 00:00:00 2021-01-03 00:00:00 Outpatient MASTER RICE [id number] [facility] 2020-12-27 10:00:00 2020-12-27 10:00:00 Outpatient JORDAN MANJEET RADHA GARCIA [id number] [facility] 2020-12-17 11:45:00 2020-12-17 11:45:00 Outpatient COVID-PFIZE R BOOSTER, MADDIE GARCIA [id number] [facility] 2020-12-15 14:30:00 2020-12-15 14:30:00 Outpatient COVID-PFIZE R BOOSTER MILLY RADHA GARCIA [id number] Rad[facility] 2020-12-02 10:15:00 2020-12-02 10:15:00 Outpatient LAB90 RADHA GARCIA [id number] Rad[facility] 2020-12-02 09:15:00 2020-12-02 09:15:00 Outpatient MASTER RICE [id number] Radha Simental Results Test Description Test Time Test Comments Results Result Co mments Source Radha Simental - External Notes Date/Time Note Provider Source 2023-04-16 15:31:29 I8Ryh/aiHcoBkmNzYDOa Rsv+gf6Y0T8POS0F CYd00AppqLfqdQTjo68YbAHoYW2N8847-46- 08T15:31:29 [place] [address]-6Mqvcn MtuvAY3391-78-40M16:32:14Nurse NoteTXT1.2.840.084668.1.13.131.2.7.2 .008431|[id number] for patient oifd68187-9Mfqpo NoteLNNARRATIVEFormatted C-CDA narrative text[id number] A3928-71-23Q13:32:141.2.840.509828.1 .72.3.15|1.2.840.703998.1.13.131.2.7 .2.727879_[id number] [facility] 2022-11-09 15:04:33 IM52xtQa+/OLwrcXXmuQ ckGDI7fYEtvdAc1f HFCtl2hjEXLOS448K4z29NNA6FkF4534-20- 03T15:04:33 Chief Complaint Patient presents with Follow-up 2 week follow up/left foot pain. Lakesha Schmid 17362-1Vshyx JwofHC9397-90-73D55:04:54Nurse NoteTXT1.2.840.540238.1.13.131.2.7.2 .390966|[id number] for patient idmz58315-0Zotvb NoteLN[id number] E2897-76-27E74:04:541.2.840.492845.1 .72.3.15|1.2.840.834309.1.13.131.2.7 .2.727879_[id number] [facility] 2022-10-26 14:19:43 nQnRolcOMFob9rdRIrhv 07WJbkLkTgxnnyUt hlhY2ZM4FJdKcsb2NvuqGRAZMjWJ1917-87- 20T14:19:43 Chief Complaint Patient presents with Foot Pain Left foot pain/2 months. Patient reports no injury. She mentions pain is located at the bottom of her foot. Lakesha Schmid 00323-0Tpuat XsqqQW0294-19-62K78:20:33Nurse NoteTXT1.2.840.623280.1.13.131.2.7.2 .159853|[id number] for patient [facility] [facility] [id number] Q9263-82-51M90:20:331.2.840.355817.1 .72.3.15|1.2.840.290633.1.13.131.2.7 .2.727879_[id number] [facility]
--- NOTE | 2023-05-24 11:16 | ER ---
Nurse's Notes [facility] Name: Genesis Busch Age: 73 yrs Sex: Female : 1950 Arrival Date: 05/24/2023 Time: 10:58 Bed 12 Private MD: Diagnosis: Encounter for Staple Removal Presentation: 05/24 11:10 Chief complaint: Patient states: needs sandy removed from back of scalp, fell on iw 05[birth year]12-[birth year]. Coronavirus screen: At this time, the client does not indicate any symptoms associated with coronavirus-19. Ebola Screen: Patient negative for fever greater than or equal to 101.5 degrees Fahrenheit, and additional compatible Ebola Virus Disease symptoms Patient denies exposure to infectious person. Patient denies travel to an Ebola-affected area in the 21 days before illness onset. No symptoms or risks identified at this time. 11:10 Method Of Arrival: Ambulatory iw 11:10 Acuity: SUMAYA 4 iw Vital Signs: 11:22 BP 157 / 82; Pulse 77; Resp 16; Temp 98; Pulse Ox 100% on R/A; iw ED Course: 11:00 Patient arrived in ED. rg4 11:05 Se Foreman MD is Attending Physician. ec2 11:10 Farida Valdes RN is Primary Nurse. iw 11:10 Triage completed. iw Administered Medications: No medications were administered Outcome: 11:16 Discharge ordered by . ec2 11:23 Discharged to home ambulatory, iw 11:23 Condition: good 11:23 Discharge instructions given to patient, 11:23 No charge visit due to suture removal. 11:23 Patient left the ED. iw Signatures: Farida Valdes RN RN iw Garcia, Rubi rg4 Se Foreman MD MD ec2
--- NOTE | 2023-05-24 11:16 | EDPHYS ---
Physician Documentation [facility] Name: Genesis Busch Age: 73 yrs Sex: Female : 1950 Arrival Date: 05/24/2023 Time: 10:58 Bed 12 Private MD: ED Physician Se Foreman HPI: 05/24 11:14 This 73 yrs old Female presents to ER via Ambulatory with complaints of Staple ec2 Removal. 11:14 Patient with recent head injury had 2 sandy, states she has had no issues. Denies any ec2 discharge or any other concerns.. ROS: 11:14 Constitutional: as per hpi ec2 Exam: 11:14 Constitutional: GEN: NAD Head: atraumatic Eyes: EOMI Ears: External ears are ec2 normal. CV: regular rate LUNGS: no respiratory distress ABD: non-distended SKIN: [place] x 2 in the occiput, well-healed injury, no erythema, no discharge MSK: no evidence of trauma NEURO: moves all extremities equally Vital Signs: 11:22 BP 157 / 82; Pulse 77; Resp 16; Temp 98; Pulse Ox 100% on R/A; iw Procedures: 11:14 Suture/Staple removal: Removed 2 sandy, from scalp, site appears well healed, Patient ec2 tolerated well. MDM: 11:10 Patient medically screened. ec2 11:14 Data reviewed: vital signs. ED course: Patient arrives today for evaluation of her ec2 sandy. Examination remarkable for well-appearing nontoxic individual who has a well-healed scar in the occiput. I remove the sandy without issue, will discharge home. Return precautions given. . Administered Medications: No medications were administered Disposition Summary: 05/24/23 11:16 Discharge Ordered Notes: Location: Home ec2 Condition: Stable ec2 Diagnosis - Encounter for Staple Removal ec2 Followup: ec2 - With: Private Physician - When: - Reason: Re-evaluation by your physician Forms: - Medication Reconciliation Form ec2 - Thank You Letter ec2 - Antibiotic Education ec2 - Prescription Opioid Use ec2 - Patient Portal Instructions ec2 - Leadership Thank You Letter ec2 Signatures: Se Foreman MD MD ec2
[2023-05-24 11:35] VITALS: BP 157/82; TEMP 98; O2SAT 100
== END ==
LOC: ER 10:58
DX: Z48.02 Encounter for removal of sutures (principal)